=== PATIENT | male | born 1960 | race Caucasian/White ===

== ENCOUNTER 2022-04-10 19:23 | Emergency (ER) | payer OTHER, SELFPAY ==
[2022-04-10 21:29] VITALS: BP 142/78; PULSE 60; RESP 18; TEMP 35.7; O2SAT 97; BMI 39.0
--- NOTE | 2022-04-10 23:06 | ED_ITS ---
HPI - Extremity Problem General Chief complaint: Extremity Injury, Upper Stated complaint: right hand laceration work inj Time Seen by Provider: 04/10/22 22:45 Source: patient Mode of arrival: ambulatory Limitations: no limitations History of Present Illness HPI Narrative: Patient is a 62-year-old male who presents to the emergency department for evaluation of a laceration to the right hand. He will initially went to urgent care but was referred here as lacerations were too deep further repair. He states that today while at work he was loading something onto a truck and sustained a laceration from the load bar to the right index finger and right thumb. Initially was bleeding but bleeding became controlled. Denies numbness tingling or cold sensation to the fingers. Has full range of motion to the fing ers. Denies anticoagulants usage or coagulation disorders. Reports last tetanus vaccine being greater than 10 years ago. Related Data Previous Rx's Medication Instructions Recorded cephalexin 250 mg capsule 250 mg PO QID 7 days #28 caps 04/11/22 Allergies Allergy/AdvReac Type Severity Reaction Status Date / Time No Known Allergies Allergy Verified 04/10/22 22:59 Review of Systems Review of Systems: Skin: Lacerations to the right index finger and right thumb Yes all other systems are reviewed and are negative [facility] Past Medical History Attestation statement: The following information was validated with the patient. Source: old records reviewed Social History Social History Advance Directives: No Advance Directives Information Provided: No Physical Exam Vital Signs: Vital Signs: Last Vital Signs Temp 98 F 04/10/22 23:33 Pulse 55 04/10/22 23:33 Resp 18 04/10/22 23:33 BP 160/86 H 04/10/22 23:33 Pulse Ox 97 04/10/22 23:33 O2 Del Method 04/10/22 23:33 BMI result Body Mass Index 39.0 Appearance: Alert.?Oriented to person, place and time. No acute distress.?Normal affect. Eyes: Pupils equal, round and reactive to light.? ENT: Pharynx normal.?? Neck: Normal inspection.? Neck supple.?? CVS: Heart sounds normal. Normal heart rate and rhythm.? Pulses normal.?? Respiratory: No respiratory distress.? Lung sounds clear to auscultation bilaterally?? Abdomen: Soft and non-tender. Normoactive bowel sounds. Skin: Skin warm and dry.? Normal skin color.? 2 cm linear laceration to the lateral aspect of the 2nd digit just inferior to the MCP, involving care cutaneous tissue, bleeding controlled. 0.5 cm superficial laceration to the palmar aspect of the right thumb just distal to the DIP Extremities: No lower extremity edema.? Neuro: Moves all extremities spontaneously. Sensation intact bilaterally. CN II- XII intact. No focal neuro deficits. Ambulates with normal steady gait. Course Course Course Narrative: Patient is a 62-year-old male presents to the emergency department for evaluation of traumatic laceration sustained to the right hand while at work. He is _ hand dominant. Physical exam notable for 2 cm linear laceration to the lateral aspect of the 2nd digit just inferior to the MCP, involving care cutaneous tissue, bleeding controlled. 0.5 cm superficial laceration to the palmar aspect of the right thumb just distal to the DIP. Tetanus vaccine updated. Wounds cleansed with normal saline, digital block with lidocaine, sutured as noted in procedure section under aseptic technique, patient tolerated procedure well. Sutures will need to be removed in 8-10 days. Prescription for prophylactic antibiotic was sent to patient's pharmacy. Reviewed worsening signs and symptoms to return back to emergency department for. All questions were answered, patient discharged home in stable condition. MDM - Extremity (Nontraumatic) Medical Records Attestation: I reviewed the patient's medical records. Procedures Laceration Laceration 1: Site: hand (Second digit) Side (If applicable): right Size (cm): 2 Description: linear Depth: simple, single layer Local Anesthetic: lidocaine 1% Amount of anesthesia used (mL): 3 Pre-repair: wound explored and irrigated extensively Skin layer closed with: nylon Size (cm): 5-0 Number of sutures: 5 Technique: simple, interrupted Laceration 2: Site: hand (Thumb) Side (If applicable): right Size (cm): 0.5 Description: linear Depth: simple, single layer Local Anesthetic: lidocaine 1% Amount of anesthesia used (mL): 3 Pre-repair: wound explored and irrigated extensively Skin layer closed with: nylon Size (cm): 5-0 Number of sutures: 2 Technique: simple, interrupted Discharge Plan Discharge Clinical Impression: Finger laceration Patient Disposition: Home, Self-Care Instructions: Finger Laceration (ED) Additional Instructions: The sutures will need to be removed in 8-10 days you may return back to emergency department are speak with your primary care provider regarding having them removed. Avoid soaking the hand in water or submerging the hand Take antibiotics prescribed to prevent infection, topical bacitracin can be applied to the sutures. You should return for re-evaluation if you develop fevers, chills, increasing pain, redness, swelling, pus-like drainage, inability to move the fingers. Prescriptions: New cephalexin 250 mg capsule 250 mg PO QID 7 Days Qty: 28 0RF Referrals: Leonor Kirk MD [Primary Care Provider] - Stand Alone Forms: Work/School Release Interventions: ED Discharge Assessment Last Done: 04/11/22 00:49 Discharge Date/Time: 04/11/22 00:50
[2022-04-10] MEDS: Lidocaine HCl 1 % MPF 2 ML VIAL 6 ML SUBCUT (23:07)
[2022-04-10] MEDS: Diphth,Pertus(ACell),Tet Adult 0.5 ML SYRINGE IM (23:07)
[2022-04-10 23:33] VITALS: BP 160/86; PULSE 55; RESP 18; TEMP 36.6; O2SAT 97
== END 2022-04-11 00:50 | disposition home or self-care (01) ==
PROVIDERS: Emergency Provider Emergency Medicine Emergency Medical Services; PCP Internal Medicine
DX: S61.210A Laceration without foreign body of right index finger without damage to nail, initial encounter (principal); S61.011A Laceration without foreign body of right thumb without damage to nail, initial encounter; S60.511A Abrasion of right hand, initial encounter; W26.9XXA Contact with unspecified sharp object(s), initial encounter; Y93.9 Activity, unspecified; Y92.9 Unspecified place or not applicable; Y99.0 Civilian activity done for income or pay
CPT/HCPCS: 12042; 90471; 90715; 99284

== ENCOUNTER 2023-05-20 13:10 | Outpatient (AMB) | payer OTHER, SELFPAY ==
--- NOTE | 2023-05-20 13:30 | A.OFFVIS_ITS ---
Intake Vital Signs 05/20/23 13:32 Height 5 ft 10 in Weight 260 lb BMI 37.3 BP 108/70 Blood Pressure Location Rt brachial Position Sitting Respiration 16 Pulse 70 Pulse Source Pulse Oximeter Pulse Oximetry (%) 96 Oxygen Delivery Method Room Air Intake Visit Reasons: E-[employer]: Immunotherapy Related Neurotoxicity - LVM Intake Note: Pt presents to the office for new pt evaluation for immunotherapy related neurotoxicity. Recep Required: No Allergies No Known Allergies Allergy (Verified 05/20/23 13:31) Medication List - Last Reconciled 05/20/23 by Lauren Burton MD apixaban (Eliquis) 5 mg PO BID atorvastatin 40 mg PO DAILY cholecalciferol (vitamin D3) 10 mcg PO DAILY cyclobenzaprine 10 mg PO TID ferrous sulfate 300 mg PO BID gabapentin 300 mg PO TID lorazepam 0.5 mg PO DAILY PRN magnesium 200 mg PO DAILY metoprolol succinate ER 50 mg PO BID mirtazapine 15 mg PO BEDTIME multivitamin 1 tab PO DAILY omeprazole 20 mg PO BID ondansetron HCl 4 mg PO Q8H oxycodone 5 mg PO BID PRN sennosides (senna) 8.6 mg PO BID trazodone 50 mg PO DAILY HPI HPI Comments History of Present Illness Details 63Y/O MALE with esophageal cancer stage 4 comes for further management of immune mediated neuropathy. He was diagnsoed with esophageal cancer ( invasive adenocarcinoma) in Jun 2022 when he presented with dysphagia. He was treated with RT in his shoulder and spine, chemo - FOLFOX and nivolumab on 08/01 . 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 Paraneoplastic syndrome was ruled out He was treated with IVIG and high dose steroids and he improved . His course was also complicated by PE treated with eliquis and hematoma. He is still on chemo q 2 weeks . Now he has persistent numbness in his cisco feet, toes, has pain and sensitivity to touch in his feet,L>R he has weakness and walks with walker short distances.He has involuntary leg movements when he is sleeping and has frequent arousals. He has loud snoring and excessive daytime fatigue sleepiness. He reports headaches - right temporal pain. MRI with hayde showed no mets as per his . No nausea . He has photophobia ,phonophobia and has average 3-4 week.He takes tylenol and oxycodone .He feels better in 30 minutes.His headaches are mostly in the later part of the day. [facility] Medical History (Updated 05/20/23 @ 14:40 by Lauren Burton MD) Pulmonary embolism Esophageal carcinoma HTN (hypertension) Migraines, neuralgic Immune-mediated neuropathy Insomnia Snoring Surgical History Status post chemotherapy H/O umbilical hernia repair Family History Father No problems noted. Mother HTN (hypertension) Social History Household Members: Spouse Caregiver staying overnight: Yes Housing: Apartment Alcohol intake: never Patient Tobacco Use Status: Never used Tobacco Physical Exam Vital Signs: Last Vital Signs Pulse 70 05/20/23 13:32 Resp 16 05/20/23 13:32 BP 108/70 05/20/23 13:32 Pulse Ox 96 05/20/23 13:32 Oxygen Delivery Method Room Air 05/20/23 13:32 BMI result Body Mass Index 37.3 Const General: cooperative Nutritional Appearance: obese Orientation/consciousness: patient oriented x3 Neuro Other: Weakness of LE proximal 3/5 distal 4/5 Decreased sensation, light touch and pin prick in Left LE upto knee , right LE upto lower 1/3 leg General: patient oriented x3, tone normal, moves all extremities and Unable to assess gait Cranial nerves: Yes Facial sensation intact/muscles of mastication intact, Yes Bilaterally intact EOM present, Yes Nystagmus not present, Yes Normal facial strength present, Yes Midline tongue present and Yes Symmetric palate elevation present Cognition (Neuro): normal cognition Gait exam (Neuro): Unable to assess gait Deep tendon reflexes (DTR's): Right triceps reflex intensity grade: 1+, Left triceps reflex intensity grade: 1+, Rt Biceps (C5, C6): 1+, Left biceps reflex intensity grade: 1+, Right brachioradialis reflex intensity grade: 1+, Left brachioradialis reflex intensity grade: 1+, Right patellar reflex intensity grade: 0, Left patellar reflex intensity grade: 0, Right ankle reflex intensity grade: 0 and Left ankle reflex intensity grade: 0 Coordination: [id number] test normal Assessment & Plan Assessment & Plan (1) Immune-mediated neuropathy: Comment: ? CIDP Code(s): D89.89 - Other specified disorders involving the immune mechanism, not elsewhere classified; G63 - Polyneuropathy in diseases classified elsewhere (2) Insomnia: Code(s): G47.00 - Insomnia, unspecified (3) Snoring: Code(s): R06.83 - Snoring (4) Migraines, neuralgic: Code(s): G44.009 - Cluster headache syndrome, unspecified, not intractable Plan EMG NCS for assess the severity of neuropathy Home sleep test to r/o sleep apnea Increase gabapentin 600mg tid for neuropathic pain and migraines Orders: Orders RT home sleep study Today D89.89 - Other specified disorders involving the immune mechanism, not elsewhere classified, G47.00 - Insomnia, unspecified, G63 - Polyneuropathy in diseases classified elsewhere, R06.83 - Snoring NE electromyogram (EMG) Today D89.89 - Other specified disorders involving the immune mechanism, not elsewhere classified, G63 - Polyneuropathy in diseases classified elsewhere Medications: New cyclobenzaprine 10 mg PO BEDTIME gabapentin 600 mg PO TID 90 tabs 6RF Coding Level of Care Code New Pt Level 4 (91431) Diagnoses Immune-mediated neuropathy D89.89; G63 Insomnia G47.00 Snoring R06.83 Migraines, neuralgic G44.009
[2023-05-20 13:32] VITALS: BP 108/70; PULSE 70; RESP 16; O2SAT 96; BMI 37.3
== END 2023-05-20 14:22 | disposition home or self-care (01) ==
PROVIDERS: PCP Internal Medicine; Visit Provider Psychiatry & Neurology Neurology
DX: D89.89 Other specified disorders involving the immune mechanism, not elsewhere classified (principal); G63 Polyneuropathy in diseases classified elsewhere; G47.00 Insomnia, unspecified; R06.83 Snoring; G44.009 Cluster headache syndrome, unspecified, not intractable
CPT/HCPCS: 99204

== ENCOUNTER → 2023-05-20 13:10 | Outpatient (BNVA) | payer OTHER, SELFPAY | PROVIDERS: PCP Internal Medicine; Visit Provider Psychiatry & Neurology Neurology | DX: G44.009 Cluster headache syndrome, unspecified, not intractable (principal); G47.00 Insomnia, unspecified; D89.89 Other specified disorders involving the immune mechanism, not elsewhere classified; G63 Polyneuropathy in diseases classified elsewhere; R06.83 Snoring | CPT/HCPCS: 99202 ==

== ENCOUNTER → 2023-07-02 14:19 | Outpatient (REF) | payer OTHER, SELFPAY ==
--- NOTE | 2023-07-02 14:25 | EMG_ITS ---
Chief complaint: He was diagnsoed with esophageal cancer (invasive adenocarcinoma) in Jun 2022 when he presented with dysphagia. Subsequent staging imaging showed diffusely widespread disease with clavicular, mediastinal, abdominal adenopathy, as well as osseous metastasis. He was treated with RT in his shoulder and spine, chemo - FOLFOX and nivolumab on 08/01 . He developed acute bilateral lower extremity weakness 2 weeks after the initiation of chemo. 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 Paraneoplastic syndrome was ruled out. He was treated with IVIG and high dose steroids and he improved. His course was also complicated by PE treated with eliquis and hematoma. He is still on chemo q 2 weeks. He had an EMG August 2022, and was told to have severe neuropathy. I do not have the results today for comparison. Reason for referral: Evaluate for neuropathy Referred by: Dr. Burton Procedure done: Bilateral lower extremity NCS/EMG Precautions and/or limitations: On Eliquis-had to avoid needle EMG on deep muscles such as paraspinals The limb temperature was monitored continuously and remained between 32-36 degrees C during the performance of the NCS. Nerve Conduction Studies Anti Sensory Summary Table ?Stim Site NR Onset (ms) Norm Onset (ms) Peak (ms) Norm Peak (ms) O-P Amp (?V) Norm O-P Amp Site1 Site2 Delta-0 (ms) Dist (cm) Deng (m/s) Norm Deng (m/s) Left Sural Anti Sensory (Lat Mall) Calf NR <4.0 >5.0 Calf Lat Mall 14.0 Right Sural Anti Sensory (Lat Mall) Calf NR <4.0 >5.0 Calf Lat Mall 14.0 Motor Summary Table ?Stim Site NR Onset (ms) Norm Onset (ms) O-P Amp (mV) Norm O-P Amp iAmp (mV) Amp (1st) (%) Site1 Site2 Delta-0 (ms) Dist (cm) Deng (m/s) Norm Deng (m/s) Right Peroneal Motor (Ext Dig Brev) Ankle NR <4.0 >2.5 Ankle Ext Dig Brev 0.0 B Fib NR B Fib Ankle 0.0 >40 Poplt NR Poplt B Fib 0.0 >40 Left Tibial Motor (Abd [place]endleton Brev) Ankle NR <5 >2.5 Ankle Abd [place] Brev 0.0 Knee NR Knee Ankle 0.0 >40 Right Tibial Motor (Abd [place] Brev) Ankle NR <5 >2.5 Ankle Abd [place] Brev 0.0 Knee NR Knee Ankle 0.0 >40 EMG ?Side Muscle Nerve Root Ins Act Fibs Psw Amp Dur Poly Recrt Int Pat Comment Right AbdHallucis MedPlantar S1-2 Nml Nml Nml Nml Nml 0 Nml Complete Right AntTibialis Dp Br Peron L4-5 Incr 1+ 1+ Nml Nml 0 Nml Complete Right MedGastroc Tibial S1-2 Incr 1+ 1+ Nml Nml 0 Nml Complete Right VastusMed Femoral L2-4 Nml Nml Nml Nml Nml 0 Nml Complete Right Peroneus Long Sup Br Peron L5-S1 Incr 1+ 1+ Nml Nml 0 Nml Complete Right BicepsFemS Sciatic L5-S1 Nml Nml Nml Nml Nml 0 Nml Complete Left AbdHallucis MedPlantar S1-2 Nml Nml Nml Nml Nml 0 Nml Complete Left AntTibialis Dp Br Peron L4-5 Incr 1+ 1+ Nml Nml 0 Nml Complete Left MedGastroc Tibial S1-2 Nml Nml Nml Nml Nml 0 Nml Complete Left VastusMed Femoral L2-4 Nml Nml Nml Nml Nml 0 Nml Complete Left Peroneus Long Sup Br Peron L5-S1 Nml Nml Nml Nml Nml 0 Nml Complete FINDINGS: All motor and sensory nerves tested on lower extremities did not show any response. Concentric needle EMG was performed in selected muscles of the bilateral lower extremity. Study revealed Signs of electric abnormalities as shown in the table below. Right tibialis anterior, medial gastrocnemius and peroneus longus showed increased insertional activity, PSWs and fibrillations. Left tibialis anterior showed increased insertional activity, PSWs and fibrillations. IMPRESSION: 1. This is an abnormal study. 2. 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 3. Denervation seen on needle EMG of L5-S1 innervated muscles. Cannot rule out an L5-S1 radiculopathy. CLINICAL COMMENT: Comparison with previous EMG done at [facility] would be helpful. Thank you for your kind referral. Skylar Dodson MD, MORENO Board Certified, [place] [employer] and Rehabilitation (ABPMR) Board Certified, [place] [employer] Electro[employer]ostic [employer] (ABEM) CODIN [id number] x [address] [facility]
== END ==
LOC: HO.SL 14:19
PROVIDERS: PCP Internal Medicine; Visit Provider Psychiatry & Neurology Neurology
DX: G47.33 Obstructive sleep apnea (adult) (pediatric) (principal); G47.00 Insomnia, unspecified; R06.83 Snoring; G63 Polyneuropathy in diseases classified elsewhere; D89.89 Other specified disorders involving the immune mechanism, not elsewhere classified
CPT/HCPCS: 95806; 95886; 95909

== ENCOUNTER → 2023-07-02 14:25 | Outpatient (BNV) | payer OTHER, SELFPAY | PROVIDERS: PCP Internal Medicine; Visit Provider Physical Medicine & Rehabilitation | DX: G62.89 Other specified polyneuropathies (principal) | CPT/HCPCS: 95886; 95909 ==

== ENCOUNTER → 2023-07-02 15:13 | Outpatient (BNV) | payer OTHER, SELFPAY | PROVIDERS: PCP Internal Medicine; Visit Provider Psychiatry & Neurology Neurology | DX: G47.33 Obstructive sleep apnea (adult) (pediatric) (principal) | CPT/HCPCS: 95806 ==

== ENCOUNTER → 2023-08-01 19:30 | Outpatient (REF) | payer OTHER, SELFPAY | LOC: HO.SL 19:30 | PROVIDERS: PCP Internal Medicine; Visit Provider Nurse Practitioner Family | DX: G47.33 Obstructive sleep apnea (adult) (pediatric) (principal) | CPT/HCPCS: 95811 ==

== ENCOUNTER → 2023-08-01 21:41 | Outpatient (BNV) | payer OTHER, SELFPAY | PROVIDERS: PCP Internal Medicine; Visit Provider Psychiatry & Neurology Neurology | DX: G47.33 Obstructive sleep apnea (adult) (pediatric) (principal) | CPT/HCPCS: 95811 ==

== ENCOUNTER 2023-08-14 12:52 | Outpatient (AMB) | payer OTHER, SELFPAY ==
--- NOTE | 2023-08-14 12:56 | MHC.OFFVIS ---
Intake Vital Signs 08/14/23 12:57 Respiration 16 Pulse 70 Pulse Source Pulse Oximeter Pulse Oximetry (%) 96 Oxygen Delivery Method Room Air Intake Visit Reasons: 2 mo f/u -fImmunotherapy related Neurotixicity Intake Note: Pt presents for 3 month follow up for management of immune mediated neuropathy. [employer] Required: No Allergies No Known Allergies Allergy (Verified 08/14/23 12:57) Medication List - Last Reconciled 08/14/23 by Lauren Burton MD apixaban (Eliquis) 5 mg PO BID atorvastatin 40 mg PO DAILY cholecalciferol (vitamin D3) 10 mcg PO DAILY cyclobenzaprine 10 mg PO BEDTIME ferrous sulfate 300 mg PO BID gabapentin 600 mg PO TID lorazepam 0.5 mg PO DAILY PRN magnesium 200 mg PO DAILY metoprolol succinate ER 50 mg PO BID mirtazapine 15 mg PO BEDTIME multivitamin 1 tab PO DAILY omeprazole 20 mg PO BID ondansetron HCl 4 mg PO Q8H oxycodone 5 mg PO BID PRN sennosides (senna) 8.6 mg PO BID trazodone 50 mg PO DAILY HPI HPI Comments History of Present Illness Details 63Y/O MALE with esophageal cancer stage 4 comes for further management of immune mediated neuropathy. He was diagnsoed with esophageal cancer ( invasive adenocarcinoma) in Jun 2022 when he presented with dysphagia. He was treated with RT in his shoulder and spine, chemo - FOLFOX and nivolumab on 08/01 . 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 Paraneoplastic syndrome was ruled out He was treated with IVIG and high dose steroids and he improved . His course was also complicated by PE treated with eliquis and hematoma. He is still on chemo q 2 weeks . Now he has persistent numbness in his cisco feet, toes, has pain and sensitivity to touch in his feet,L>R he has weakness and walks with walker short distances.He has involuntary leg movements when he is sleeping and has frequent arousals. He has loud snoring and excessive daytime fatigue sleepiness. He reports headaches - right temporal pain. MRI with hayde showed no mets as per his . No nausea . He has photophobia ,phonophobia and has average 3-4 week.He takes tylenol and oxycodone .He feels better in 30 minutes.His headaches are mostly in the later part of the day. [facility] Medical History (Updated 08/14/23 @ 13:16 by Lauren Burton MD) Chronic migraine without aura Pulmonary embolism Esophageal carcinoma HTN (hypertension) Migraines, neuralgic Immune-mediated neuropathy Insomnia Snoring Surgical History Status post chemotherapy H/O umbilical hernia repair Family History Father No problems noted. Mother HTN (hypertension) Social History Household Members: Spouse Caregiver staying overnight: Yes Housing: Apartment Alcohol intake: never Patient Tobacco Use Status: Never used Tobacco Physical Exam Vital Signs: Last Vital Signs Pulse 70 08/14/23 12:57 Resp 16 08/14/23 12:57 Pulse Ox 96 08/14/23 12:57 Oxygen Delivery Method Room Air 08/14/23 12:57 Const General: cooperative Nutritional Appearance: obese Orientation/consciousness: patient oriented x3 Neuro Other: Weakness of LE proximal 3/5 distal 4/5 Decreased sensation, light touch and pin prick in Left LE upto knee , right LE upto lower 1/3 leg General: patient oriented x3, tone normal, moves all extremities and Unable to assess gait Cranial nerves: Yes Facial sensation intact/muscles of mastication intact, Yes Bilaterally intact EOM present, Yes Nystagmus not present, Yes Normal facial strength present, Yes Midline tongue present and Yes Symmetric palate elevation present Cognition (Neuro): normal cognition Gait exam (Neuro): Unable to assess gait Deep tendon reflexes (DTR's): Right triceps reflex intensity grade: 1+, Left triceps reflex intensity grade: 1+, Rt Biceps (C5, C6): 1+, Left biceps reflex intensity grade: 1+, Right brachioradialis reflex intensity grade: 1+, Left brachioradialis reflex intensity grade: 1+, Right patellar reflex intensity grade: 0, Left patellar reflex intensity grade: 0, Right ankle reflex intensity grade: 0 and Left ankle reflex intensity grade: 0 Coordination: [id number] test normal Assessment & Plan Assessment & Plan (1) Immune-mediated neuropathy: Comment: ? CIDP Code(s): D89.89 - Other specified disorders involving the immune mechanism, not elsewhere classified; G63 - Polyneuropathy in diseases classified elsewhere (2) TANI (obstructive sleep apnea): Comment: Severe degree of sleep apnea. The AHI was 45/hr and oxygen zoya was 75% Code(s): G47.33 - Obstructive sleep apnea (adult) (pediatric) (3) Chronic migraine without aura: Code(s): G43.709 - Chronic migraine without aura, not intractable, without status migrainosus Plan EMG NCS for assess the severity of neuropathy- axonal neuropathy Waiting for CPAP - 15 Continue gabapentin 600mg tid for neuropathic pain and migraines topiramate 50mg bid for migraines prophylaxis Medications: New topiramate 50 mg PO BID 60 tabs 0RF Coding Level of Care Code Est Pt Level 4 (77037) Diagnoses Immune-mediated neuropathy D89.89; G63 TANI (obstructive sleep apnea) G47.33 Chronic migraine without aura G43.709
[2023-08-14 12:57] VITALS: PULSE 70; RESP 16; O2SAT 96
== END 2023-08-14 13:21 | disposition home or self-care (01) ==
LOC: HO.HSMS 12:52
PROVIDERS: PCP Internal Medicine; Visit Provider Psychiatry & Neurology Neurology
DX: D89.89 Other specified disorders involving the immune mechanism, not elsewhere classified (principal); G63 Polyneuropathy in diseases classified elsewhere; G47.33 Obstructive sleep apnea (adult) (pediatric); G43.709 Chronic migraine without aura, not intractable, without status migrainosus
CPT/HCPCS: 99214

== ENCOUNTER → 2023-08-14 12:52 | Outpatient (BNVA) | payer OTHER, SELFPAY | PROVIDERS: PCP Internal Medicine; Visit Provider Psychiatry & Neurology Neurology | DX: G47.33 Obstructive sleep apnea (adult) (pediatric) (principal); G43.709 Chronic migraine without aura, not intractable, without status migrainosus; G63 Polyneuropathy in diseases classified elsewhere; D89.89 Other specified disorders involving the immune mechanism, not elsewhere classified | CPT/HCPCS: 99212 ==

== ENCOUNTER 2023-09-01 13:05 | Outpatient (AMB) | payer OTHER, SELFPAY ==
[2023-09-01 13:21] VITALS: BP 120/84; PULSE 76; TEMP 36.9; O2SAT 96; BMI 43.0
--- NOTE | 2023-09-01 13:21 | MHC.OFFWIV ---
Intake Vital Signs 09/01/23 13:21 Height 5 ft 10 in Weight 300 lb BMI 43.0 BP 120/84 Blood Pressure Location Lt brachial Position Sitting Pulse 76 Pulse Source Pulse Oximeter Temp 98.5 F Temp Source Oral Pulse Oximetry (%) 96 Oxygen Delivery Method Room Air Intake Visit Reasons: rash on head/forehead Intake Note: Pt presents to the office today for a rash on his head and forehead. The rash started about 2 days ago. Pt denies any new soaps or products used. Pt states he is currently getting leucovorin every 2 weeks and his last chemo was 08/20/23. He states he spoke with his oncologist who told him to go to urgent care because she wanted to check and make sure it wasnt shingles. Pt states the bumps are painful and a little blistery. Pt states he did have chicken pox as a child., ? Patient Tobacco Use Status: Never used Tobacco Allergies No Known Allergies Allergy (Verified 09/01/23 13:23) HPI HPI Comments History of Present Illness Details Patient presents to the walk-in today for sick visit Complaining of rash to right side of his head that started 2 days ago Patient is currently undergoing chemotherapy every 2 weeks, leucovorin, he is due for his next treatment tomorrow Spoke with his oncologist who recommended evaluation in the walk-in Patient states it started with some itching to that area then he developed the rash Rash is painful to the touch, denies drainage or crusting Denies patient vision changes, watering of the eye, redness in the eye, pain to the eye Denies fever, chest pain, shortness of breath, palpitations, dizziness, weakness, chills PFSH Medical History Chronic migraine without aura Pulmonary embolism Esophageal carcinoma HTN (hypertension) Migraines, neuralgic Immune-mediated neuropathy Insomnia Snoring Surgical History Status post chemotherapy H/O umbilical hernia repair Family History Father No problems noted. Mother HTN (hypertension) Social History Household Members: Spouse Caregiver staying overnight: Yes Housing: Apartment Alcohol intake: never Patient Tobacco Use Status: Never used Tobacco Review of Systems Const All systems reviewed & are unremarkable except as noted in HPI and below Physical Exam Vital Signs: Last Vital Signs Temp 98.5 F 09/01/23 13:21 Pulse 76 09/01/23 13:21 BP 120/84 09/01/23 13:21 Pulse Ox 96 09/01/23 13:21 Oxygen Delivery Method Room Air 09/01/23 13:21 BMI result Body Mass Index 43.0 General: awake, alert, oriented. Answers questions appropriately. Fully engaged in examination. Skin: small vesicular rash noted to right frontal/parietal scalp. no weeping, crusting or drainage noted. Tender to palpation. HEENT: Normocephalic. Hearing intact. PERRL. No héctor-orbital lesions noted. Cardiac: External chest normal in appearance. Respiratory: No cough, audible wheezing or stridor. Abdomen: without gross distension. MS: No obvious swelling or deformities. Neurological: Oriented to person, place, time and situation. Thought process intact. Patient using motorized wheelchair Psychiatric: Appropriate mood and affect. Good judgment and insight. Assessment & Plan Assessment & Plan (1) Shingles: Code(s): B02.9 - Zoster without complications Plan valacyclovir a 1000 mg p.o. t.i.d. x7 days Avoid contact with women and other immunocompromised persons Call and speak to oncologist before next scheduled chemo treatment Patient and advised of red flag symptoms including monitoring for spreading to the eye and symptoms that would warrant emergency room visit. All questions and concerns were answered, patient agrees with the plan Follow up with primary care doctor or return to walk-in clinic for a new, worsening or concerning symptoms. Medications: New valacyclovir 1,000 mg PO Q8H 10 days 30 tabs 0RF Coding Level of Care Code Est Pt Level 3 (22168) Diagnoses Shingles B02.9
== END 2023-09-01 14:56 | disposition home or self-care (01) ==
PROVIDERS: PCP Internal Medicine; Visit Provider Registered Nurse Emergency
DX: B02.9 Zoster without complications (principal)
CPT/HCPCS: 99213

== ENCOUNTER → 2023-11-13 07:57 | Outpatient (BNVA) | payer OTHER, SELFPAY | PROVIDERS: PCP Internal Medicine; Visit Provider Psychiatry & Neurology Neurology | DX: G43.709 Chronic migraine without aura, not intractable, without status migrainosus (principal); G47.33 Obstructive sleep apnea (adult) (pediatric); G63 Polyneuropathy in diseases classified elsewhere; D89.89 Other specified disorders involving the immune mechanism, not elsewhere classified | CPT/HCPCS: 99212 ==

== ENCOUNTER 2023-12-22 16:06 | Outpatient (REF) | payer OTHER, SELFPAY | END 2023-12-22 16:07 | disposition home or self-care (01) | LOC: HO.MRI 16:06 | PROVIDERS: PCP Internal Medicine; Visit Provider Psychiatry & Neurology Neurology | DX: Z13.89 Encounter for screening for other disorder (principal) ==

== ENCOUNTER 2024-04-23 10:19 | Outpatient (REF) | payer OTHER, SELFPAY ==
[2024-04-23 13:17] LABS: Appearance Urine Clear; Color Urine Yellow; Glucose Urine UA Negative (Negative); Leukocyte Esterase Urine Large (3+) (Negative); Nitrite Urine Negative (Negative); UMIC TRIGGER UACC YES; Urine Blood Small (1+) (Negative); Urine Ketones Negative (Negative); Urine Protein Negative (Neg-Trace)
[2024-04-23 13:28] LABS: Bacteria Urine None Seen (None Seen); Hyaline Casts Urine 0-2 /LPF (0-2); RBC Urine 0-2 /HPF (0-2); Squamous Epithelial Cell Urine 0-2 /HPF (0-2); UACC Culture Trigger YES; WBC Urine >50 /HPF (0-5)
== END 2024-04-23 10:20 | disposition home or self-care (01) ==
LOC: HO.LNP 10:19
PROVIDERS: PCP Internal Medicine; Visit Provider Nurse Practitioner Family
DX: R39.15 Urgency of urination (principal)
CPT/HCPCS: 81001; 81003; 87086; 99212

== ENCOUNTER 2024-04-23 10:19 | Outpatient (AMB) | payer OTHER, SELFPAY ==
[2024-04-23 10:26] VITALS: BP 120/82; PULSE 83; TEMP 36.7; O2SAT 98
--- NOTE | 2024-04-23 10:26 | AM.OFFWIN_ITS ---
Intake Vital Signs 04/23/24 10:26 Height 5 ft 10 in BP 120/82 Blood Pressure Location Rt brachial Position Sitting Pulse 83 Pulse Source Pulse Oximeter Temp 98.1 F Temp Source Oral Pulse Oximetry (%) 98 Intake Visit Reasons: EP-UTI Intake Note: pt is here for UTI, patient states burning when voiding, urine more concentrated, unable to void or unable to hold urine, ongoing for 3 days and denies abd pain Patient Tobacco Use Status: Never used Tobacco Allergies No Known Allergies Allergy (Verified 04/23/24 10:26) Do you need a note to return to daycare/school/sports/work: No HPI HPI Comments History of Present Illness Details 64 y/o male patient who presents to the walk in clinic with c/o urinary symptoms x 3 days. C/o urinary frequency, urgency and dsyuria. He has also noticed Urinary incontinence. [facility] Medical History (Updated 11/13/23 @ 08:31 by Lauren Burton MD) Status post chemotherapy Back pain Radiculopathy Chronic migraine without aura Pulmonary embolism Esophageal carcinoma HTN (hypertension) Migraines, neuralgic Immune-mediated neuropathy Insomnia Snoring Surgical History H/O umbilical hernia repair Family History Father No problems noted. Mother HTN (hypertension) Social History Household Members: Spouse Caregiver staying overnight: Yes Housing: Apartment Alcohol intake: never Patient Tobacco Use Status: Never used Tobacco Review of Systems Const All systems reviewed & are unremarkable except as noted in HPI and below Physical Exam Vital Signs: Last Vital Signs Temp 98.1 F 04/23/24 10:26 Pulse 83 04/23/24 10:26 BP 120/82 04/23/24 10:26 Pulse Ox 98 04/23/24 10:26 Const General: cooperative and no acute distress Nutritional Appearance: obese Orientation/consciousness: patient oriented x3 Limitations: wheelchair General: Yes no CVA tenderness Back/Spine/Pelvis Back: no CVA tenderness Neuro General: patient oriented x3 Assessment & Plan Assessment & Plan (1) Urinary urgency: Code(s): R39.15 - Urgency of urination Plan: Ordered C&S. Ordered Macrobid today. Advised Pt pending on the Culture, I might change Abx. Will call Patient. Orders: Orders UA CC w/rflx Micro + Cult Today R39.15 - Urgency of urination Medications: New nitrofurantoin monohyd/m-cryst 100 mg (Macrobid) must administer with a meal/food 100 mg PO Q12H 7 days 14 caps 0RF R39.15 - Urgency of urination Coding Level of Care Code Est Pt Level 3 (94280) Diagnoses Urinary urgency R39.15 Time Spent (min) 15
== END 2024-04-23 10:58 | disposition home or self-care (01) ==
PROVIDERS: PCP Internal Medicine; Visit Provider Nurse Practitioner Family
DX: Z13.9 Encounter for screening, unspecified (principal); R39.15 Urgency of urination

== ENCOUNTER 2024-05-24 13:50 | Outpatient (REF) | payer OTHER, SELFPAY | END 2024-05-24 13:51 | disposition home or self-care (01) | LOC: HO.LAB 13:50 | PROVIDERS: PCP Internal Medicine; Visit Provider Psychiatry & Neurology Neurology | DX: M54.9 Dorsalgia, unspecified (principal); N30.01 Acute cystitis with hematuria; D89.89 Other specified disorders involving the immune mechanism, not elsewhere classified; G63 Polyneuropathy in diseases classified elsewhere; G47.33 Obstructive sleep apnea (adult) (pediatric); G43.709 Chronic migraine without aura, not intractable, without status migrainosus; G25.81 Restless legs syndrome; M48.061 Spinal stenosis, lumbar region without neurogenic claudication | CPT/HCPCS: 81003; 87086; 87088; 87186; 99202; 99212 ==

== ENCOUNTER 2024-05-24 13:50 | Outpatient (AMB) | payer OTHER, SELFPAY ==
--- NOTE | 2024-05-24 13:58 | MHC.OFFVIS ---
Vital Signs 05/24/24 13:59 Height 5 ft 10 in Weight 324 lb BMI 46.5 BP 106/62 Blood Pressure Location Lt brachial Position Sitting Pulse 74 Pulse Source Pulse Oximeter Pulse Oximetry (%) 95 Oxygen Delivery Method Room Air Intake Visit Reasons: Follow up Tile Decorator Required: No Accompanied by: Spouse Allergies No Known Allergies Allergy (Verified 05/24/24 15:21) Do you need a note to return to daycare/school/sports/work: No HPI Comments Details: 64Y/O MALE with esophageal cancer stage 4 comes for follow up of immune mediated neuropathy, sleep apnea and migraines He started CPAP and is doing well. He is sleeping better and his daytime sleepiness has improved Compliance data-95% Usage hrs 8 hrs AHI 1.9 Pressure 15 his leg weakness has improved and he is able to walk around the house. His MRI was c/w spinal stenosis . . His migraines resolved with topiramate . 1-2 migraines a month. EMG showed - 2. 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 3. Denervation seen on needle EMG of L5-S1 innervated muscles. Cannot rule out an L5-S1 radiculopathy. History from initial visit-He was diagnsoed with esophageal cancer ( invasive adenocarcinoma) in Jun 2022 when he presented with dysphagia. He was treated with RT in his shoulder and spine, chemo - FOLFOX and nivolumab on 08/01 . 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 Paraneoplastic syndrome was ruled out He was treated with IVIG and high dose steroids and he improved . His course was also complicated by PE treated with eliquis and hematoma. He is still on chemo q 2 weeks . Now he has persistent numbness in his cisco feet, toes, has pain and sensitivity to touch in his feet,L>R PFSH Medical History (Updated 05/24/24 @ 15:33 by Yamilka Barr PA-C) Restless legs syndrome (RLS) Obesity Spinal stenosis of lumbar region Status post chemotherapy Back pain Radiculopathy Chronic migraine without aura Pulmonary embolism Esophageal carcinoma HTN (hypertension) Migraines, neuralgic Immune-mediated neuropathy Insomnia Snoring Surgical History H/O umbilical hernia repair Family History Father No problems noted. Mother HTN (hypertension) Social History Household Members: Spouse Caregiver staying overnight: Yes Housing: Apartment Alcohol intake: never Patient Tobacco Use Status: Never used Tobacco Physical Exam Vital Signs: Last Vital Signs Pulse 74 05/24/24 13:59 BP 106/62 05/24/24 13:59 Pulse Ox 95 05/24/24 13:59 Oxygen Delivery Method Room Air 05/24/24 13:59 BMI result Body Mass Index 46.5 Const General: cooperative Nutritional Appearance: obese Orientation/consciousness: patient oriented x3 Neuro Other: Weakness of LE proximal 5-/5 distal 5/5 Decreased sensation, light touch and pin prick in distal toes and feet Gait- able to walk without cane , midl wide based , good. General: patient oriented x3, tone normal and moves all extremities Cranial nerves: Yes Facial sensation intact/muscles of mastication intact, Yes Bilaterally intact EOM present, Yes Nystagmus not present, Yes Normal facial strength present, Yes Midline tongue present and Yes Symmetric palate elevation present Cognition (Neuro): normal cognition Deep tendon reflexes (DTR's): Right triceps reflex intensity grade: 1+, Left triceps reflex intensity grade: 1+, Rt Biceps (C5, C6): 1+, Left biceps reflex intensity grade: 1+, Right brachioradialis reflex intensity grade: 1+, Left brachioradialis reflex intensity grade: 1+, Right patellar reflex intensity grade: 0, Left patellar reflex intensity grade: 0, Right ankle reflex intensity grade: 0 and Left ankle reflex intensity grade: 0 Coordination: [id number] test normal Results AMB Urinalysis, Automated UA Leukoctes 500 Charlie/uL Last Edit by Madison Dent CMA on 05/24/24 15:26 UA Nitrite Positive Last Edit by Madison Dent CMA on 05/24/24 15:26 UA Urobilinogen 8 mg/dL Last Edit by Madison Dent CMA on 05/24/24 15:26 UA Protein 15 mg/dL Last Edit by Madison Dent CMA on 05/24/24 15:26 UA pH 5.5 Last Edit by Madison Dent CMA on 05/24/24 15:26 UA Blood 80 [place]ak[place]/uL Last Edit by Madison Dent, DAMIÁN on 05/24/24 15:26 UA Specific [place] 1.010 Last Edit by Madison Dent, DAMIÁN on 05/24/24 15:26 UA Ketone Positive Last Edit by Madison Dent, DAMIÁN on 05/24/24 15:26 UA Bilirubin 4 mg/dL Last Edit by Madison Dent, DAMIÁN on 05/24/24 15:26 UA Glucose 250 mg/dL Last Edit by Madison Dent, DAMIÁN on 05/24/24 15:26 Assessment & Plan Assessment & Plan (1) Immune-mediated neuropathy: Comment: ? CIDP - significant improvement with course of IVIG Code(s): D89.89 - Other specified disorders involving the immune mechanism, not elsewhere classified; G63 - Polyneuropathy in diseases classified elsewhere Category: Medical (2) TANI (obstructive sleep apnea): Comment: Severe degree of sleep apnea. The AHI was 45/hr and oxygen zoya was 75% Code(s): G47.33 - Obstructive sleep apnea (adult) (pediatric) Category: Medical (3) Chronic migraine without aura: Code(s): G43.709 - Chronic migraine without aura, not intractable, without status migrainosus Category: Medical Qualifiers: Intractability: not intractable Status migrainosus presence: without status migrainosus Qualified Code(s): G43.709 - Chronic migraine without aura, not intractable, without status migrainosus (4) Restless legs syndrome (RLS): Code(s): G25.81 - Restless legs syndrome Category: Medical (5) Spinal stenosis of lumbar region: Code(s): M48.061 - Spinal stenosis, lumbar region without neurogenic claudication Category: Medical Plan EMG NCS reviewed. MRI L spine shows spinal stenosis continue CPAP - 15 . compliance stressed Continue gabapentin 600mg tid for neuropathic pain and migraines topiramate 50mg bid for migraines prophylaxis Continue exercises . Refer to medical management Pain management Orders: Referrals Pain Management Referral M48.061 - Spinal stenosis, lumbar region without neurogenic claudication, M54.10 - Radiculopathy, site unspecified, M54.9 - Dorsalgia, unspecified Medical Weight Management Referral E66.9 - Obesity, unspecified Coding Level of Care Code Est Pt Level 4 (13943) Complex EM visit Add On G2211 Diagnoses Immune-mediated neuropathy D89.89; G63 TANI (obstructive sleep apnea) G47.33 Chronic migraine without aura without status migrainosus, not intractable G43.709 Intractability: not intractable Status migrainosus presence: without status migrainosus Restless legs syndrome (RLS) G25.81 Spinal stenosis of lumbar region M48.061
[2024-05-24 13:59] VITALS: BP 106/62; PULSE 74; O2SAT 95; BMI 46.5
== END 2024-05-24 14:30 | disposition home or self-care (01) ==
PROVIDERS: PCP Internal Medicine; Visit Provider Psychiatry & Neurology Neurology
DX: D89.89 Other specified disorders involving the immune mechanism, not elsewhere classified (principal); G63 Polyneuropathy in diseases classified elsewhere; G47.33 Obstructive sleep apnea (adult) (pediatric); G43.709 Chronic migraine without aura, not intractable, without status migrainosus; G25.81 Restless legs syndrome; M48.061 Spinal stenosis, lumbar region without neurogenic claudication
CPT/HCPCS: 99214; G2211

== ENCOUNTER 2024-05-24 15:06 | Outpatient (AMB) | payer OTHER, SELFPAY ==
[2024-05-24 15:19] VITALS: BP 120/82; PULSE 60; TEMP 36.3; O2SAT 97; BMI 46.5
--- NOTE | 2024-05-24 15:19 | AM.OFFWIN_ITS ---
Intake Vital Signs 05/24/24 15:19 Height 5 ft 10 in Weight 324 lb BMI 46.5 BP 120/82 Blood Pressure Location Lt brachial Position Sitting Pulse 60 Pulse Source Pulse Oximeter Temp 97.4 F Temp Source Temporal Artery Scan Pulse Oximetry (%) 97 Oxygen Delivery Method Room Air Intake Visit Reasons: EP-?uti Intake Note: Pt presents to the office today for c/o a possible UTI. Pt states he has burning and frequency x2 days. Pt is taking OTC URIcalm. Pt states he took 3 doses total. Patient Tobacco Use Status: Never used Tobacco Allergies No Known Allergies Allergy (Verified 05/24/24 15:21) HPI HPI Comments History of Present Illness Details History of Present Illness The patient is a 64-year-old male presenting with symptoms suggestive of a urinary tract infection. The symptoms began recently, approximately two days ago, characterized by dysuria and increased urinary frequency. The patient reports a burning sensation during urination and an urgent need to urinate frequently. There is also a sensation of incomplete bladder emptying. The patient experienced a similar episode one month ago and was treated with antibiotics, specifically, macrobid, which ameliorated his symptoms significantly after two days of treatment. At that time, urine culture results showed no bacterial growth, but the patient reported marked improvement with medication. Currently, the patient has been using an [id number] product, pyridium, for three doses. Physical Exam General: Cooperative, healthy appearing, comfortable, no acute distress and well developed Orientation: Patient oriented x3 Limitations: wheelchair use Head: Normal to inspection Ears: Hearing grossly normal bilaterally Nose: Normal external nose present Face and sinus: Normal facial exam Eyes: Appearance normal, both eyes and all related structures Neck: Normal visual inspection and Yes full ROM Respiratory: Normal respiratory effort and able to speak in complete sentences Skin: No rashes or lesions noted Neuro: Patient oriented x3 Extremities: Normal to inspection [facility] Medical History (Updated 05/24/24 @ 15:33 by Yamilka Barr PA-C) Restless legs syndrome (RLS) Obesity Spinal stenosis of lumbar region Status post chemotherapy Back pain Radiculopathy Chronic migraine without aura Pulmonary embolism Esophageal carcinoma HTN (hypertension) Migraines, neuralgic Immune-mediated neuropathy Insomnia Snoring Surgical History H/O umbilical hernia repair Family History Father No problems noted. Mother HTN (hypertension) Social History Household Members: Spouse Caregiver staying overnight: Yes Housing: Apartment Alcohol intake: never Patient Tobacco Use Status: Never used Tobacco Review of Systems Const All systems reviewed & are unremarkable except as noted in HPI and below Physical Exam Vital Signs: Last Vital Signs Temp 97.4 F 05/24/24 15:19 Pulse 60 05/24/24 15:19 BP 120/82 05/24/24 15:19 Pulse Ox 97 05/24/24 15:19 Oxygen Delivery Method Room Air 05/24/24 15:19 BMI result Body Mass Index 46.5 Results AMB Urinalysis, Automated UA Leukoctes 500 Charlie/uL Last Edit by Madison Dent CMA on 05/24/24 15:26 UA Nitrite Positive Last Edit by Madison Dent CMA on 05/24/24 15:26 UA Urobilinogen 8 mg/dL Last Edit by Madison Dent CMA on 05/24/24 15:26 UA Protein 15 mg/dL Last Edit by Madison Dent CMA on 05/24/24 15:26 UA pH 5.5 Last Edit by Madison Dent CMA on 05/24/24 15:26 UA Blood 80 Flakito/uL Last Edit by Madison Dent CMA on 05/24/24 15:26 UA Specific [place] 1.010 Last Edit by Madison Dent CMA on 05/24/24 15:26 UA Ketone Positive Last Edit by Madison Dent CMA on 05/24/24 15:26 UA Bilirubin 4 mg/dL Last Edit by Madison Dent CMA on 05/24/24 15:26 UA Glucose 250 mg/dL Last Edit by Madison Dent CMA on 05/24/24 15:26 Results Reviewed Results Reviewed: Laboratory Last Values Urine pH (Auto) 5.5 05/24/24 15:25 Specific [place] (Auto) 1.010 05/24/24 15:25 Urine Protein (Auto) 15 mg/dL 05/24/24 15:25 Glucose (UA)(Auto) 250 mg/dL 05/24/24 15:25 Urine Ketones (Auto) Positive 05/24/24 15:25 Urine Blood (Auto) 80 [place]/uL 05/24/24 15:25 Urine Nitrite (Auto) Positive 05/24/24 15:25 Urine Bilirubin (Auto) 4 mg/dL 05/24/24 15:25 Urine Urobilinogen (Auto) 8 mg/dL 05/24/24 15:25 Leukocyte Esterase (Auto) 500 Charlie/uL 05/24/24 15:25 Assessment & Plan Assessment & Plan (1) UTI (urinary tract infection): Code(s): N39.0 - Urinary tract infection, site not specified Qualifiers: Urinary tract infection type: acute cystitis Hematuria presence: with hematuria Qualified Code(s): N30.01 - Acute cystitis with hematuria Plan: Plan - UA invalid after pt taking pyridium - sending urine cx as complicated (male). - Start cefuroxime BID for five days for treatment of urinary tract infection. If urine culture results indicate resistance, the therapy will be adjusted accordingly. - Discontinue omeprazole temporarily while on cefuroxime, recommending the use of alternative antacids like TUMS if needed. - The patient has an upcoming appointment with a urologist to evaluate his prostate. - Monitor symptom resolution during treatment course, and follow up with his PCP if symptoms persist or worsen. Patient was informed and verbally consented to the use of an ambient scribe for clinic note documentation during this visit. Orders: Orders Urine Culture Today Yamilka Barr PA-C N39.0 - Urinary tract infection, site not specified AMB Urinalysis Automated Today Roxanna Houston NP Z13.9 - Encounter for screening, unspecified Medications: New cefuroxime axetil 500 mg PO Q12H 10 tabs 0RF Yamilka Barr PA-C Coding Level of Care Code New Pt Level 3 (62600) Diagnoses Acute cystitis with hematuria N30.01 Urinary tract infection type: acute cystitis Hematuria presence: with hematuria
== END 2024-05-24 15:47 | disposition home or self-care (01) ==
PROVIDERS: PCP Internal Medicine; Visit Provider Physician Assistant
DX: Z13.9 Encounter for screening, unspecified (principal); N30.01 Acute cystitis with hematuria

== ENCOUNTER 2024-06-07 12:47 | Outpatient (AMB) | payer OTHER, SELFPAY ==
--- NOTE | 2024-06-07 12:51 | A.OFFVIS_ITS ---
Vital Signs 06/07/24 12:55 Height 5 ft 10 in Weight 321 lb BMI 46.1 BP 155/79 H Blood Pressure Location Lt brachial Position Sitting Pulse 80 Pulse Source Pulse Oximeter Pulse Oximetry (%) 97 Oxygen Delivery Method Room Air Intake Visit Reasons: Radiculopathy Site Unspecified Intake Note: Pain today 03/18 Surveillance Sensor Operator Required: No Accompanied by: Spouse Allergies No Known Allergies Allergy (Verified 06/07/24 12:55) HPI HPI Radiculopathy Site Unspecified: Details: Patient is a very pleasant 64 years old male with medical active history of esophageal cancer stage 4 (invasive adenocarcinoma, diagnosed early 2022, follows Dr. Walsh at [facility]), immune mediated neuropathy, PE due to chemo (07/2023, on Eliquis), h/o shingles (08/2023) s/p chemotherapy, sleep apnea/CPAP, morbid obesity and migraines, presents today for initial evaluation of chronic low back pain related to lumbar spinal stenosis. He arrives today via motorized scooter and is accompanied by his . Patient reports he lost ability to full walking capacity after first treatment of immunotherapy in 2022 due to a rare reaction and had to undergo extensive hospitalization, rehabilitation and physical therapy. Back pain is axial, discogenic and radicular in nature with movements, walking and lumbar ROM. He is able to walk for less than 5 minutes and uses cane with short distances. Walking, standing, ADLs, bending forward reproduces moderate to severe pain while sitting relieves his pain. Reports increased pain in anterior thigh and slighly in groin with spasming with SLR testing, left leg worse than right and associated numbness and tingling in both feet. Lumbar spine MRI showed multilevel central and foraminal stenosis most notable at L3-L4. Denies previous spine surgery or injections. Denies any fever or chills, abdominal pain, bladder or bowel dysfunction or saddle anesthesia. Reports bilateral lower extremity weakness. Oswestry low back disability score=25 (severe disability) Location: Lower back pain with radiation into both legs anteriorly Duration: 5 years , worsening for past one year Characteristics of symptom or complaint: Throbbing, burning, shooting, radiating, numbness, tingling, stabbing Aggravating or associated factors: Standing, walking, movements, personal care, ADLs Relieving factors: Rest, sitting, Tylenol, cyclobenzaprine, gabapentin, heat Treatment: Neurology eval, lumbar spine MRI [facility] Medical History (Updated 06/07/24 @ 18:10 by HARLAN Vasquez) Port-A-Cath in place Restless legs syndrome (RLS) Obesity Spinal stenosis of lumbar region Status post chemotherapy Back pain Radiculopathy Chronic migraine without aura Pulmonary embolism Esophageal carcinoma HTN (hypertension) Migraines, neuralgic Immune-mediated neuropathy Insomnia Snoring Surgical History H/O umbilical hernia repair Family History Father No problems noted. Mother HTN (hypertension) Social History Household Members: Spouse Caregiver staying overnight: Yes Housing: Apartment Alcohol intake: never Patient Tobacco Use Status: Never used Tobacco Review of Systems Const All systems reviewed & are unremarkable except as noted in HPI and below Physical Exam Vital Signs: Last Vital Signs Pulse 80 06/07/24 12:55 BP 155/79 H 06/07/24 12:55 Pulse Ox 97 06/07/24 12:55 Oxygen Delivery Method Room Air 06/07/24 12:55 BMI result Body Mass Index 46.1 General: Appears afebrile. Alert and oriented. Mood and affect appropriate. Follows and participates in conversation appropriately. Respiratory effort is unlabored. Able to transition from sit to stand with assistance. Arrived via motorized W/C. Able to ambulate short steps with assistance and cane. Unable to perform lumbar ROM due to pain. SLR test positive bilaterally, left>right. Port a cath is noted right chest, not accessed. Area non tender, no swelling or redness. Results Reviewed Results Reviewed: MR SPINE LUMBAR without CONTRAST 01/12/24 at [facility] INDICATION: Chronic low back pain x a few years. Unspecified radiculopathy. TECHNIQUE: Unenhanced multiplanar, multisequence MR imaging of the lumbar spine. COMPARISON: None available. FINDINGS: Normal alignment of lumbar vertebral bodies. The vertebral bodies are of normal height. Endplate Modic type II changes L3-L4 and L4-L5. Moderate loss of intervertebral disc space height and marginal osteophyte formation at these levels. Remaining intervertebral disc spaces are maintained. Lumbar facet arthrosis. Conus and cauda equina of normal appearance. Conus tip T12-L1. Examination through the L1-L2 intervertebral level revealing facet arthrosis. Prominence of ligamentum flavum. No significant central stenosis or foraminal narrowing. Examination through the L2-L3 intervertebral level revealing facet arthrosis. Prominence of ligamentum flavum. Small posterior disc osteophyte. Mild central stenosis. No RIGHT foraminal narrowing. Mild LEFT foraminal narrowing. Examination through the L3-L4 intervertebral level revealing facet arthrosis. Prominence of ligamentum flavum. Posterior disc osteophyte. Moderate to severe central stenosis. Bilateral lateral recess encroachment. No significant LEFT foraminal narrowing. Mild RIGHT foraminal narrowing. Examination through the L4-L5 intervertebral level revealing facet arthrosis. Posterior disc osteophyte. Mild central stenosis. RIGHT lateral recess encroachment. Mild to moderate RIGHT foraminal narrowing. No significant LEFT foraminal narrowing. Examination through the L5-S1 intervertebral level revealing facet arthrosis. No significant central stenosis or foraminal narrowing. IMPRESSION: Spondylotic changes and facet arthrosis. No findings of fracture or listhesis. Varying degrees of central stenosis and foraminal narrowing as above. No acute disc protrusion identified. No findings suggestive of an acute process. L2-L3 Mild central stenosis. No RIGHT foraminal narrowing. Mild LEFT foraminal narrowing. L3-L4 Moderate to severe central stenosis. Bilateral lateral recess encroachment. No significant LEFT foraminal narrowing. Mild RIGHT foraminal narrowing. L4-L5 Mild central stenosis. RIGHT lateral recess encroachment. Mild to moderate RIGHT foraminal narrowing. EMG/NVC study at [facility] 07/02/23 FINDINGS: All motor and sensory nerves tested on lower extremities did not show any response. Concentric needle EMG was performed in selected muscles of the bilateral lower extremity. Study revealed Signs of electric abnormalities as shown in the table below. Right tibialis anterior, medial gastrocnemius and peroneus longus showed increased insertional activity, PSWs and fibrillations. Left tibialis anterior showed increased insertional activity, PSWs and fibrillations. IMPRESSION: 1. This is an abnormal study. 2. 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 3. Denervation seen on needle EMG of L5-S1 innervated muscles. Cannot rule out an L5-S1 radiculopathy. Assessment & Plan Assessment & Plan (1) Spinal stenosis of lumbar region: Code(s): M48.061 - Spinal stenosis, lumbar region without neurogenic claudication Category: Medical (2) Back pain: Code(s): M54.9 - Dorsalgia, unspecified Category: Medical (3) Chronic pain syndrome: Code(s): G89.4 - Chronic pain syndrome Category: Medical (4) Lumbar radiculopathy: Code(s): M54.16 - Radiculopathy, lumbar region Category: Medical Plan Discussed interventional treatments for spinal stenosis related pain with bilateral radiculopathy with patient and his . Lumbar spine MRI imaging report discussed with patient and family. Schedule L3-L4 Interlaminar ESPERANZA with local and fluoroscopy. Expectations, risks and benefits were reviewed. Patient is aware he will be contacted to schedule this procedure. Patient takes Eliquis, instructions given on when to pause with prescribing physician permission. Patient is aware of hyperglycemic effects of steroids. All questions were answered and the patient is in agreement of plan. Follow-up after injection and sooner as needed. Coding Level of Care Code New Pt Level 4 (39280) Complex EM visit Add On G2211 Diagnoses Spinal stenosis of lumbar region M48.061 Back pain M54.9 Chronic pain syndrome G89.4 Lumbar radiculopathy M54.16
[2024-06-07 12:55] VITALS: BP 155/79; PULSE 80; O2SAT 97; BMI 46.1
== END 2024-06-07 13:35 | disposition home or self-care (01) ==
PROVIDERS: PCP Internal Medicine; Referring Provider Psychiatry & Neurology Neurology; Visit Provider Nurse Practitioner Family
DX: M48.061 Spinal stenosis, lumbar region without neurogenic claudication (principal); M54.9 Dorsalgia, unspecified; G89.4 Chronic pain syndrome; M54.16 Radiculopathy, lumbar region
CPT/HCPCS: 99204; G2211

== ENCOUNTER → 2024-06-07 12:47 | Outpatient (BNVA) | payer OTHER, SELFPAY | PROVIDERS: PCP Internal Medicine; Referring Provider Psychiatry & Neurology Neurology; Visit Provider Nurse Practitioner Family | DX: M48.061 Spinal stenosis, lumbar region without neurogenic claudication (principal); M54.16 Radiculopathy, lumbar region; G89.4 Chronic pain syndrome | CPT/HCPCS: 99202 ==

== ENCOUNTER 2024-08-10 06:36 | Outpatient (REF) | payer OTHER, SELFPAY ==
--- NOTE | ~2024-08-10 | FL_ITS ---
EXAMINATION: FLUOROSCOPY GUIDANCE FOR NEEDLE PLACEMENT CLINICAL INFORMATION: M48.061 - Spinal stenosis, lumbar region without neurogenic claudication COMPARISON: None available. TECHNIQUE: Fluoroscopy guidance was provided in OR for referring physician. No radiologist was present. FINDINGS/ FL/FL guidance in treatment room IMPRESSION: There are 2 digital images obtained in the OR. There is needle positioned posterior to L4 vertebra likely epidural space. No contrast is visualized. FLUOROSCOPY TIME: 0.8 minutes DOSE AREA PRODUCT: 0.491 uGy-m2 (microgray-meter squared) Electronically signed by: Adolfo Summers MD 08/11/2024 09:53 AM [facility]
--- OUTSIDE RECORDS SUMMARY | 2024-08-10 06:38 | XMS_ITS | Encounter Summary ---
Author Organization [facility] Address [address] [place] [address] Care Team Providers Care Program Paraprofessional Name Role Phone Leonor Kirk MD Primary Care Provider [phone] Reason for Visit * Episode Based Medications (Routine) - Authorized Specialty Diagnoses / Procedures Referred By Roberto t Referred To Contact Diagnoses Esophageal cancer, stage IV (CMS/HCC) Brielle Walsh DO [address] [place] [address] Phone: tel: fax: [address] [address] Phone: tel: fax: Referral ID Status Reason Start Date Expiration Date V isits Requested Visits Authorized [id number] Authorized 03/11/2024 03/11/2025 1 28 Encounter Details Date Type Department Care Team (Latest Contact Info) Description 07/14/2024 9:00 AM EST - 07/14/2024 11:59 PM EST Hospital Encounter [address] [id number] Brielle Walsh DO [address] [place] [id number] Esophageal cancer, stage IV (CMS/HCC) (Primary Dx) Discharge Disposition: Home or Self Care Social History Tobacco Use Types Packs/Day Years Used Date Smoking Tobacco: Never Smokeless Tobacco: Never Alcohol Use Standard Drinks/Week Comments Not Currently 0 (1 standard drink = 0.6 oz pur e alcohol) Housing Instability Answer Date Recorde d Are you worried that in the next 2 months you may not have stable housing? No 04/23/2024 Food Access & Nutrition Answer Date Rec orded Do you have access to a vari ety of food including fruits and vegetables? Yes 04/23/2024 Access to Healthcare Answer Date Record ed Within the last 3 months, ho w many times did you visit the emergency department for your medical care? 1 04/23/2024 Health Literacy Answer Date Recorded How often do you need to hav e someone help you when you read instructions, pamphlets, or other written material from your doctor or pharmacy? Sometimes 04/23/2024 Caregiver: How often do you need to have someone help you when you read instructions, pamphlets, or other written material from your doctor or pharmacy? Not on file 04/23/2024 Financial Risk Answer Date Recorded How hard is it for you to pa y for the very basics like food, housing, medical care, and air conditioning / heating? Somewhat hard 04/23/2024 Transportation Answer Date Recorded Has the lack of transportati on kept you from meetings, work, or from getting things needed for daily living? No Has the lack of transportati on kept you from medical appointments or from getting medications? No 04/23/2024 Social Isolation Answer Date Recorded How often do you feel lonely or isolated from th ose around you? Never 04/23/2024 Food Risk Answer Date Recorded Within the past 12 months we worried whether our food would run out before we got money to buy more. Never true 04/23/2024 Within the past 12 months th e food we bought just didn't last and we didn't have money to get more. Never true 04/23/2024 Dependent Care Answer Date Recorded Do you need help finding or paying for care for your loved ones. For example, early childhood teacher or elderly care for an older adult? No 04/23/2024 Education Answer Date Recorded Do you think completing more education or training, like finishing a GED, going to college, or learning a trade, would be helpful for you? No 04/23/2024 Employment and Income Answer Date Recor ded During the last four weeks, have you been actively looking for work? No 04/23/2024 Living Situation Answer Date Recorded What is your living situation? 1 06/23/2023 Sex and Gender Information Value Date Recorded Sex Assigned at Male 04/20/2024 1:50 PM EST Legal Sex Male 12:32 PM EST Gender Identity Male 04/20/2024 1:50 PM EST Sexual Orientation Straight 04/20/2024 1: 50 PM EST documented as of this encounter Last Filed Vital Signs Vital Sign Reading Time Taken Comments Blood Pressure 110/63 07/14/2024 9:19 AM EST Pulse 76 07/14/2024 9:19 AM EST Temperature 36.2 ??C (97.1 ??F) 07/14/2024 9:19 AM ES T Respiratory Rate 18 07/14/2024 9:19 AM EST Oxygen Saturation 97% 07/14/2024 9:19 AM EST Inhaled Oxygen Concentration - - Weight 151 kg (331 lb 12.7 oz) 07/14/2024 9:19 A M EST Height - - Body Mass Index 47.61 06/29/2024 9:26 AM EST documented in this encounter Medications at Time of Discharge acetaminophen (TYLENOL 8 HOUR) 650 mg 8 hr tablet Take 1 tablet (650 mg total) by mouth every 8 (eight) hours if needed. albuterol HFA (PROAIR HFA ; PROVENTIL HFA ; VENTOLIN HFA) 90 mcg/actuation inhaler Inhale 2 puffs by mouth. 12/22/2023 apixaban (Eliquis) 5 mg tablet Take 1 tablet (5 mg total) by mouth 2 (two) times a day. 10/27/2023 Asmanex Twisthaler 220 mcg/ actuation (30) aerosol powdr breath activated inhaler INHALE 1 PUFF INTO LUNGS ONCE DAILY 1 each 4 05/13/2024 atorvastatin (LIPITOR) 40 mg tablet Take 1 tablet (40 mg total) by mouth 1 (one) time each day. 90 tablet 1 04/13/2024 cefuroxime (CEFTIN) 500 mg tablet Take 1 tablet (500 mg total) by mouth 2 (two) times a day. 05/24/2024 cetirizine (ZyrTEC) 10 mg tablet Take 1 tablet (10 mg total) by mouth 2 (two) times a day if needed. 12/16/2023 cholecalciferol (VITAMIN D-3) 25 mcg (1,000 unit) tablet Take 1 tablet (1,000 Units total) by mouth 2 (two) times a day. 12/22/2023 cranberry 500 mg capsule Take 500 mg by mouth 1 (one) time each day. cyclobenzaprine (FLEXERIL) 10 mg tablet TAKE 1 TABLET BY MOUTH 2 TIMES DAILY NEEDED FOR MUSCLE SPASMS. 180 tablet 06/25/2024 d-mannose 500 mg capsule Take 2,000 mg by mouth 1 (one) time each day. ferrous sulfate 325 mg (65 mg elemental iron) tablet Take 1 tablet (325 mg total) by mouth 2 (two) times a day. 12/22/2023 fluticasone HFA (Flovent HFA) 110 mcg/actuation inhaler INHALE 1 PUFF INTO THE LUNGS 2 TIMES DAILY 02/14/2023 furosemide (LASIX) 20 mg tablet Take 1 tablet (20 mg total) by mouth 1 (one) time each day if needed (leg swelling after chemotherapy.). 30 tablet 5 05/25/2024 gabapentin (NEURONTIN) 600 mg tablet Take 1 tablet (600 mg total) by mouth 3 (three) times a day. lidocaine-prilocai ne (EMLA) 2.5-2.5 % cream Apply topically. 01/28/2024 LORazepam (ATIVAN) 0.5 mg tablet Take 1 tablet (0.5 mg total) by mouth at bedtime as needed for anxiety. Max Daily Amount: 0.5 mg 60 tablet 06/03/2024 Magic Mouthwash 1:1:1 (diphenhydrAMINE-l idocaine 2% trtphcd-eyczvvjy-b agnesium hydroxide-simethic one) suspension (compound) 10 mL every 30 minutes as needed. 01/23/2023 magnesium oxide (MAG-OX) 400 mg (241.3 elemental magnesium) tablet Take 1 tablet (400 mg total) by mouth 3 (three) times a day. 10/15/2022 metoprolol tartrate (LOPRESSOR) 50 mg tablet TAKE 1 TABLET BY MOUTH TWICE A DAY 180 tablet 07/12/2024 mirtazapine (REMERON) 15 mg tablet Take 1 tablet (15 mg total) by mouth at bedtime. 90 tablet 1 04/13/2024 mometasone (Asmanex Twisthaler) 220 mcg/ actuation (120) aerosol powdr breath activated inhaler Inhale 1 puff by mouth. 08/11/2023 ondansetron (ZOFRAN) 4 mg tablet Take 1 tablet (4 mg total) by mouth every 8 (eight) hours if needed. prochlorperazine (COMPAZINE) 10 mg tablet Take 1 tablet (10 mg total) by mouth every 6 hours as needed. 01/17/2023 topiramate (TOPAMAX) 50 mg tablet Take 1 tablet (50 mg total) by mouth 2 (two) times a day. 08/14/2023 traZODone (DESYREL) 50 mg tablet Take 1 tablet (50 mg total) by mouth at bedtime. 90 tablet 1 04/13/2024 betamethasone dipropionate (DIPROSONE) 0.05 % ointment Apply topically 2 (two) times a day if needed for irritation or rash. 30 g 07/05/2024 5 diclofenac (VOLTAREN) 1 % topical gel APPLY 2 TO 4 GRAMS TOPICALLY 4 TIMES A NEEDED FOR SHOULDER/KNEE PAIN FOR OUP TO 30 DAYS 100 g 1 05/17/2024 5 omeprazole (PriLOSEC) [address] capsule Take 1 capsule (20 mg total) by mouth 2 (two) times a day. 90 capsule 1 04/26/2024 5 documented as of this encounter Discharge Disposition Disposition Code Departure Means Destination Home or Self Care documented in this encounter Progress Notes * Roxana Marte, MARY ANNE - 07/14/2024 9:00 AM EST 0920- Pt arrived today via WC, accompanied by , for stat labs and treatment. Pt continues with chronic neuropathy and fatigue. Pt otherwise reports feeling well overall and denies acute complaints or changes since last visit. Port accessed without diff. Labs collected/sent stat. Pt resting comfortably at this time. Call finnegan in reach. 1015- Labs resulted and WNL for chemotherapy today. Ma.7. Based off parameters in electrolyte therapy plan, 2gm mag sulfate released and initiated. Treatment released and pre meds given. Pt resting comfortably and watching TV at this time. Call finnegan in reach. 1305- Magnesium completed without incident. Leucovorin initiated and completed without incident. 5FU push given. +BR noted throughout administration. 5FU pump attached. Connections secured. Infusion verified. Pump takedown appt provided and will provide next chemo appt when pt comes on Friday. Pt left unit, stable at D/C. documented in this encounter Plan of Treatment Upcoming Encounters Date Type Department Care Team (Late st Contact Info) Description 08/17/2024 9:00 AM EDT Appointment [facility] Infusion [facility] [address] [place] [phone] 08/17/2024 9:30 AM EDT Appointment [facility] CT Scan [address] [place] [phone] 08/18/2024 9:00 AM EDT Appointment [facility] Infusion [facility] [address] [place] [phone] 08/25/2024 9:00 AM EDT Office Visit [facility] Hematology Oncology [address] [place] [phone] Brielle Walsh, [address] [place] [address] documented as of this encounter Procedures Procedure Name Priority Date/Time Associated Diagnosis Comments CBC WITH AUTO DIFFERENTIAL STAT 07/14/2024 9:18 AM EST Esophageal cancer, stage IV (CMS/HCC) CBC AND DIFFERENTIAL STAT 07/14/2024 9:18 AM EST Esophageal cancer, stage IV (CMS/HCC) MAGNESIUM STAT 07/14/2024 9:18 AM EST Esophageal cancer, stage IV (CMS/HCC) COMPREHENSIVE METABOLIC PANEL STAT 07/14/2024 9:18 AM EST Esophageal cancer, stage IV (CMS/HCC) documented in this encounter Results * (ABNORMAL) CBC auto differential (07/14/2024 9:18 AM EST) WBC 6.9 4.8 - 10.8 K/mcL LAB HEMETOLOGY METHOD 07/14/2024 9:28 AM [facility] RBC 3.10(L) 4.50 - 5.50 M/mcL LAB HEMETOLOGY METHOD 07/14/2024 9:28 AM [facility] Hemoglobin 10.5(L) 13.5 - 17.5 g/dL LAB HEMETOLOGY METHOD 07/14/2024 9:28 AM [facility] Hematocrit 32.0(L) 42.0 - 54.0 % LAB HEMETOLOGY METHOD 07/14/2024 9:28 AM [facility] MCV 103.6(H) 79.0 - 98.0 FL LAB HEMETOLOGY METHOD 07/14/2024 9:28 AM [facility] MCH 34.0(H) 27.0 - 32.0 pcg LAB HEMETOLOGY METHOD 07/14/2024 9:28 AM [facility] MCHC 32.8 32.0 - 37.0 g/dL LAB HEMETOLOGY METHOD 07/14/2024 9:28 AM [facility] RDW 14.6 11.0 - 15.0 % LAB HEMETOLOGY METHOD 07/14/2024 9:28 AM [facility] Platelets 150 130 - 400 K/mcL LAB HEMETOLOGY METHOD 07/14/2024 9:28 AM [facility] MPV 9.5 7.0 - 11.0 FL LAB HEMETOLOGY METHOD 07/14/2024 9:28 AM [facility] NRBC 0.0 <1.0 % LAB HEMETOLOGY METHOD 07/14/2024 9:28 AM [facility] NRBC Absolute 0.00 <0.10 K/mcL LAB HEMETOLOGY METHOD 07/14/2024 9:28 AM [facility] Neutrophils Relative 74.6 % LAB HEMETOLOGY METHOD 07/14/2024 9:28 AM [facility] Lymphocytes Relative 9.7 % LAB HEMETOLOGY METHOD 07/14/2024 9:28 AM [facility] Monocytes Relative 8.4 % LAB HEMETOLOGY METHOD 07/14/2024 9:28 AM [facility] Eosinophils Relative 6.2 % LAB HEMETOLOGY METHOD 07/14/2024 9:28 AM [facility] Basophils Relative 0.7 % LAB HEMETOLOGY METHOD 07/14/2024 9:28 AM [facility] Immature Granulocytes Relative 0.4 % LAB HEMETOLOGY METHOD 07/14/2024 9:28 AM [facility] Neutrophils Absolute 5.13 1.50 - 7.00 K/mcL LAB HEMETOLOGY METHOD 07/14/2024 9:28 AM [facility] Lymphocytes Absolute 0.67(L) 1.00 - 5.00 K/mcL LAB HEMETOLOGY METHOD 07/14/2024 9:28 AM [facility] Monocytes Absolute 0.58 0.20 - 1.00 K/mcL LAB HEMETOLOGY METHOD 07/14/2024 9:28 AM [facility] Eosinophils Absolute 0.43 0.00 - 0.50 K/mcL LAB HEMETOLOGY METHOD 07/14/2024 9:28 AM [facility] Basophils Absolute 0.05 0.00 - 0.20 K/mcL LAB HEMETOLOGY METHOD 07/14/2024 9:28 AM [facility] Immature Granulocytes Absolute 0.03 0.00 - 0.03 K/mcL LAB HEMETOLOGY METHOD 07/14/2024 9:28 AM [facility] Blood Blood sample taken from central line / Unknown Existing Catheter / Unknown 07/14/2024 9:18 AM EST 07/14/2024 9:24 AM EST us Brielle Websteruliffe DO LAB BLOOD ORDERABLES Final Result [facility] [address] [place] [address], [place] [phone] * (ABNORMAL) Comprehensive metabolic panel (07/14/2024 9:18 AM EST) Sodium 141 133 - 145 mmol/L LAB CHEMISTRY METHOD 07/14/2024 9:51 AM [facility] Potassium 3.7 3.5 - 5.5 mmol/L LAB CHEMISTRY METHOD 07/14/2024 9:51 AM [facility] Chloride 105 96 - 110 mmol/L LAB CHEMISTRY METHOD 07/14/2024 9:51 AM [facility] CO2 24 21 - 32 mmol/L LAB CHEMISTRY METHOD 07/14/2024 9:51 AM [facility] Anion Gap 12(H) 3 - 11 LAB CHEMISTRY METHOD 07/14/2024 9:51 AM [facility] Glucose 137(H) 70 - 100 mg/dL LAB CHEMISTRY METHOD 07/14/2024 9:51 AM [facility] BUN 16 5 - 25 mg/dL LAB CHEMISTRY METHOD 07/14/2024 9:51 AM [facility] Creatinine 1.16 0.70 - 1.30 mg/dL LAB CHEMISTRY METHOD 07/14/2024 9:51 AM [facility] eGFR 71 >=60 mL/min/1. 73m2 LAB CHEMISTRY METHOD 07/14/2024 9:51 AM [facility] Comment:Calculation based on the??Chronic Kidney Disease Epidemiology Collaboration (CKD-EPI) equation refit??without adjustment for race. BUN/Creatinine Ratio 13.8 LAB CHEMISTRY METHOD 07/14/2024 9:51 AM [facility] Calcium 8.9 8.5 - 10.5 mg/dL LAB CHEMISTRY METHOD 07/14/2024 9:51 AM [facility] AST (SGOT) 16 10 - 42 unit/L LAB CHEMISTRY METHOD 07/14/2024 9:51 AM [facility] ALT (SGPT) 30 10 - 60 unit/L LAB CHEMISTRY METHOD 07/14/2024 9:51 AM [facility] Alkaline Phosphatase 165(H) 42 - 121 unit/L LAB CHEMISTRY METHOD 07/14/2024 9:51 AM [facility] Total Protein 6.3 6.0 - 8.0 g/dL LAB CHEMISTRY METHOD 07/14/2024 9:51 AM [facility] Albumin 3.4 3.2 - 5.0 g/dL LAB CHEMISTRY METHOD 07/14/2024 9:51 AM [facility] Total Bilirubin 0.5 0.0 - 1.4 mg/dL LAB CHEMISTRY METHOD 07/14/2024 9:51 AM [facility] Blood Blood sample taken from central line / Unknown Existing Catheter / Unknown 07/14/2024 9:18 AM EST 07/14/2024 9:24 AM EST us Brielle Walsh DO LAB BLOOD ORDERABLES Final Result [facility] [address] [place] [address], * (ABNORMAL) Magnesium (07/14/2024 9:18 AM EST) Magnesium 1.7(L) 1.9 - 2.6 mg/dL LAB CHEMISTRY METHOD 07/14/2024 9:51 AM EST [facility] Blood Blood sample taken from central line / Unknown Existing Catheter / Unknown 07/14/2024 9:18 AM EST 07/14/2024 9:24 AM EST Brielle Hooks Nico DO LAB BLOOD ORDERABLES Final Result [facility] [address] [place] [address], documented in this encounter Visit Diagnoses Diagnosis Esophageal cancer, stage IV (CMS/HCC)- Primary documented in this encounter Administered Medications Inactive Administered Medications - up to 3 most recent administrations Medication Order MAR Action Action Date Dose Rate Site dexAMETHasone (DECADRON) tablet 8 mg 8 mg, oral, Once, On Fri07/14/24 at 1015, For 1 doseIndications:Esophageal cancer, stage IV (CMS/HCC) Given 07/14/2024 10:09 AM EST 8 mg fluorouracil (ADRUCIL) 5,200 mg in sodium chloride 0.9 % 138 mL chemo infusion 5,200 mg (rounded from 5,180 mg = 2,000 mg/m2 ? 2.59 m2), intravenous, at 3 mL/hr, Administer over 46 Hours, Once, On Fri07/14/24 at 1100, For 1 dose, Fluorouracil is administered as a continuous infusion over 46 hours within this regimen. This agent requires a central venous access device for administration in this regimen. Protect from light HAZARDOUS Drug Precautions - High Risk (Category C/NIOSH Group 1) Antineoplastic: - Double pair of ASTM standard [id number] certified chemotherapy gloves - Chemotherapy gown - Closed-System Transfer Device (CSTD) recommended - Eye protection (goggles or face shield) required only with a potential for facial contact (i.e. concern for spitting or vomiting of the dose during or after administration)Indications:E sophageal cancer, stage IV (CMS/HCC) Given 07/14/2024 12:51 PM EST 5,200 mg 3 mL/hr fluorouracil (ADRUCIL) chemo injection 950 mg 950 mg, intravenous, Once, On Fri07/14/24 at 1015, For 1 dose, Protect from light HAZARDOUS Drug Precautions - High Risk (Category C/NIOSH Group 1) Antineoplastic: - Double pair of ASTM standard [id number] certified chemotherapy gloves - Chemotherapy gown - Closed-System Transfer Device (CSTD) recommended - Eye protection (goggles or face shield) required only with a potential for facial contact (i.e. concern for spitting or vomiting of the dose during or after administration)Indications:E sophageal cancer, stage IV (CMS/HCC) Given 07/14/2024 12:51 PM EST 950 mg leucovorin 1,050 mg in dextrose 302.5 mL IVPB 1,050 mg (rounded from 1,036 mg = 400 mg/m2 ? 2.59 m2), intravenous, at 151.3 mL/hr, Administer over 120 Minutes, Once, On Fri07/14/24 at 1015, For 1 dose, Protect from lightIndications:Esophageal cancer, stage IV (CMS/HCC) New Bag 07/14/2024 11:46 AM EST 1,050 mg 151.3 mL/hr magnesium sulfate 2 gram/50 mL (4 %) IVPB 2 g 2 g, intravenous, at 25 mL/hr, Administer over 2 Hours, Once as needed, For Magnesium Level of 1.5 - 1.8 mg/dL, Starting on Fri07/14/24 at 1015, For 1 dose, For Magnesium Level of 1.5 - 1.8 mg/dL (One dose for a total of 2 g)Indications:Esophageal cancer, stage IV (CMS/HCC) New Bag 07/14/2024 10:13 AM EST 2 g 50 mL/hr ondansetron ODT (ZOFRAN-ODT) disintegrating tablet 16 mg 16 mg, oral, Once, On Fri07/14/24 at 1015, For 1 doseIndications:Esophageal cancer, stage IV (CMS/HCC) Given 07/14/2024 10:09 AM EST 16 mg documented in this encounter Orders Medications Ordered That Bull ht Not Have Been Administered Count Last Ordered Date First Ordered Date sodium chloride 0.9 % infusion 1 07/14/2024 Nursing Count Last Ordered Date First Orde red Date NCCN PARAMETERS 1 07/14/2024 NCCN PARAMETERS - FLUOROURACIL 1 07/14/2024 NCCN PARAMETERS - LEUCOVORIN 1 07/14/2024 ONC NURSING COMMUNICATION 1 07/14/2024 ONC NURSING COMMUNICATION 10 07/14/2024 ONC NURSING COMMUNICATION 11 1 07/14/2024 TREATMENT CONDITIONS 2 07/14/2024 Appointment Requests Count Last Ordered Date Fi rst Ordered Date ONCBCN CALCULATED LENGTH INF USION APPOINTMENT REQUEST 1 1 07/14/2024 documented in this encounter Additional Health Concerns Assessment Noted Time PHQ-9 Depression Total Score: 0 04/23/20 24 5:25 PM EST documented as of this encounter Care Teams Program Paraprofessional Relationship Specialty Start Date End Date Leonor Kirk MD [address] [place] [address] PCP - General 10/01/1997 documented as of this encounter
--- OUTSIDE RECORDS SUMMARY | 2024-08-10 06:38 | XMS_ITS | Encounter Summary ---
Author Organization [place] [address] Care Team Providers Care Hot Tamale Worker Name Role Phone Leonor Kirk MD Primary Care Provider [phone] Reason for Visit * Reason Comments Follow-up Encounter Details Date Type Department Care Team (Latest Contact Info) Description 07/27/2024 11:00 AM EST Office Visit [facility] Hematology Oncology [address] [place] [id number] Kirk Collazo PA [address] [place] [address] Esophageal cancer, stage IV (CMS/HCC) (Primary Dx); Anemia due to antineoplastic chemotherapy; Hypomagnesemia; Weakness of both lower extremities; History of pulmonary embolism Social History Tobacco Use Types Packs/Day Years Used Date Smoking Tobacco: Never Smokeless Tobacco: Never Tobacco Cessation:Counseling Given: Not Answered Alcohol Use Standard Drinks/Week Comments Not Currently [...] care for your loved ones. For example, child development director or elderly care for an older adult? [...] Sign Reading Time Taken Comments Blood Pressure 122/66 07/27/2024 11:06 AM EST Pulse 88 07/27/2024 11:06 AM EST Temperature 36 ??C (96.8 ??F) 07/27/2024 11:06 AM EST Respiratory Rate - - Oxygen Saturation 96% 07/27/2024 11:06 AM EST Inhaled Oxygen Concentration - - Weight 152 kg (334 lb) 07/27/2024 11:06 AM EST Height - - Body Mass Index 47.92 06/29/2024 9:26 AM EST documented in this encounter Progress Notes * SOBEIDA Hoyt - 07/27/2024 11:00 AM ESTAddended by: KIRK COLLAZO on: 07/27/2024 03:29 PM Modules accepted: Orders * SOBEIDA Hoyt - 07/27/2024 11:00 AM EST Hematology/Oncology Progress Note 07/27/24 Subjective Patient identifier: 64 y.o. metastatic esophageal cancer on 5FU , leucovorin Interim history: Nimesh presents today for routine follow-up accompanied by his . Patient reports that his hips are feeling better after steroid injections, administered ~ 6 months ago. He will now be having injections in his spine which is planned for August.] He recently underwent evaluation by urology for further investigation of microscopic hematuria. He was supposed to have a cystoscopy but urology team decided against it. Supposedly, as long as he does not get any UTIs, no follow- up needed with urology for a year. He was started on cranberry pills. He denies any dysphagia or abdominal pain. Energy improving Still with some residual minor palpable discomfort on the right chest wall which is nearly resolved, no hemoptysis or or SOB Constitutional: See above Resp/CV: No cough, shortness of breath GI: No nausea, vomiting, diarrhea, : See above. Skin: No rashes Neuro: No headaches, dizziness, Musculoskeletal: +chronic back pain. Hem/Lymph : No bruising or bleeding Oncology history: Oncology History Esophageal cancer, stage IV (CMS/HCC) 07/18/2022 Initial Diagnosis Esophageal cancer, stage IV (CMS/HCC) 04/14/2024 - Chemotherapy dexAMETHasone (DECADRON) tablet 8 mg, 8 mg (original dose ), oral, Once, 8 of 13 cycles Dose modification: 8 mg (Cycle 0) Administration: 8 mg (04/14/2024), 8 mg (04/28/2024), 8 mg (05/12/2024), 8 mg (06/01/2024), 8 mg (06/15/2024), 8 mg (06/29/2024), 8 mg (07/14/2024) ondansetron ODT (ZOFRAN-ODT) disintegrating tablet 16 mg, 16 mg (100 % of original dose 16 mg), oral, Once, 7 of 12 cycles Dose modification: 8 mg (original dose 16 mg, Cycle 1), 16 mg (original dose 16 mg, Cycle 1) Administration: 16 mg (04/14/2024), 16 mg (04/28/2024), 16 mg (05/12/2024), 16 mg (06/01/2024), 16 mg(06/15/2024), 16 mg (06/29/2024), 16 mg (07/14/2024) leucovorin 1,000 mg in dextrose 300 mL IVPB, 400 mg/m2 = 1,000 mg, intravenous, Once, 7 of 12 cycles Administration: 1,000 mg (04/14/2024), 1,000 mg (04/28/2024), 1,000 mg (05/12/2024), 1,000 mg (06/01/2024), 1,000 mg (06/15/2024), 1,050 mg (06/29/2024), 1,050 mg (07/14/2024) fluorouracil (ADRUCIL) 5,050 mg in sodium chloride 0.9 % 138 mL chemo infusion, 2,000 mg/m2 = 5,050mg (100 % of original dose 2,000 mg/m2), intravenous, Once, 7 of 12 cycles Dose modification: 2,000 mg/m2 (100 % of original dose 2,000 mg/m2, Cycle 1, Reason: Dose Not Tolerated) Administration: 5,050 mg (04/14/2024), 5,100 mg (04/28/2024), 5,100 mg (05/12/2024), 5,100 mg (06/01/2024), 5,100 mg (06/15/2024), 5,150 mg (06/29/2024), 5,200 mg (07/14/2024) alteplase (CATHFLO ACTIVASE) injection 2 mg, 2 mg, intra-catheter, As needed, 7 of 12 cycles fluorouracil (ADRUCIL) chemo injection 950 mg, 950 mg (100 % of original dose 950 mg), intravenous,Once, 7 of 12 cycles Dose modification: 950 mg (original dose 950 mg, Cycle 1, Reason: Treatment Parameters Not Met, Comment: adding back 5fu push to the treatment) Administration: 950 mg (04/14/2024), 950 mg (04/28/2024), 950 mg (05/12/2024), 950 mg (06/01/2024), 950 mg (06/15/2024), 950 mg (06/29/2024), 950 mg (07/14/2024) 04/20/2024 Cancer Staged Staging form: Esophagus - Adenocarcinoma, AJCC 8th Edition - Clinical: Stage IVB (cM1) - Signed by Brielle Walsh DO on 04/20/2024 06/15/2024 - Supportive Therapy HYDRATION AND ELECTROLYTES Plan Provider: Brielle Walsh DO Objective Last Vitals Vitals: 07/27/24 1106 BP: 122/66 Pulse: 88 Temp: 36 ??C (96.8 ??F) SpO2: 96% ECO General: well nourished male HENT: no scleral icterus Chest: Right sided port no surrounding erythema Resp: clear to auscultation bilaterally Cardio: regular rate and rhythm, Abdomen: obese, soft non tender, non distended Extremities: bilateral leg edema Neuro: alert and oriented, slow gait, in a wheelchair Medications Current Outpatient Medications: acetaminophen (TYLENOL 8 HOUR) 650 mg 8 hr tablet, Take 1 tablet (650 mg total) by mouth every 8 (eight) hours if needed., Disp: , Rfl: albuterol HFA (PROAIR HFA ; PROVENTIL HFA ; VENTOLIN HFA) 90 mcg/actuation inhaler, Inhale 2 puffs by mouth., Disp: , Rfl: apixaban (Eliquis) 5 mg tablet, Take 1 tablet (5 mg total) by mouth 2 (two) times a day., Disp: , Rfl: Asmanex Twisthaler 220 mcg/ actuation (30) aerosol powdr breath activated inhaler, INHALE 1 PUFF INTO LUNGS ONCE DAILY, Disp: 1 each, Rfl: 4 atorvastatin (LIPITOR) 40 mg tablet, Take 1 tablet (40 mg total) by mouth 1 (one) time each day., Disp: 90 tablet, Rfl: 1 betamethasone dipropionate (DIPROSONE) 0.05 % ointment, Apply topically 2 (two) times a day if needed for irritation or rash., Disp: 30 g, Rfl: 0 cetirizine (ZyrTEC) 10 mg tablet, Take 1 tablet (10 mg total) by mouth 2 (two) times a day if needed., Disp: , Rfl: cholecalciferol (VITAMIN D-3) 25 mcg (1,000 unit) tablet, Take 1 tablet (1,000 Units total) by mouth 2 (two) times a day., Disp: , Rfl: cranberry 500 mg capsule, Take 500 mg by mouth 1 (one) time each day., Disp: , Rfl: cyclobenzaprine (FLEXERIL) 10 mg tablet, TAKE 1 TABLET BY MOUTH 2 TIMES DAILY NEEDED FOR MUSCLE SPASMS., Disp: 180 tablet, Rfl: 0 d-mannose 500 mg capsule, Take 2,000 mg by mouth 1 (one) time each day., Disp: , Rfl: diclofenac (VOLTAREN) 1 % topical gel, APPLY 2 TO 4 GRAMS TOPICALLY 4 TIMES A NEEDED FOR SHOULDER/KNEE PAIN FOR UP TO 30 DAYS, Disp: 120 g, Rfl: 2 ferrous sulfate 325 mg (65 mg elemental iron) tablet, Take 1 tablet (325 mg total) by mouth 2 (two)times a day., Disp: , Rfl: furosemide (LASIX) 20 mg tablet, Take 1 tablet (20 mg total) by mouth 1 (one) time each day if needed (leg swelling after chemotherapy.)., Disp: 30 tablet, Rfl: 5 gabapentin (NEURONTIN) 600 mg tablet, Take 1 tablet (600 mg total) by mouth 3 (three) times a day.,Disp: , Rfl: lidocaine-prilocaine (EMLA) 2.5-2.5 % cream, Apply topically., Disp: , Rfl: LORazepam (ATIVAN) 0.5 mg tablet, Take 1 tablet (0.5 mg total) by mouth at bedtime as needed for anxiety. Max Daily Amount: 0.5 mg, Disp: 60 tablet, Rfl: 0 Magic Mouthwash 1:1:1 (diphenhydrAMINE-lidocaine 2% jbgaaqe-vzfvcakr-yktecvszb hydroxide-simethicone) suspension (compound), 10 mL every 30 minutes as needed., Disp: , Rfl: magnesium oxide (MAG-OX) 400 mg (241.3 elemental magnesium) tablet, Take 1 tablet (400 mg total) bymouth 3 (three) times a day., Disp: , Rfl: metoprolol tartrate (LOPRESSOR) 50 mg tablet, TAKE 1 TABLET BY MOUTH TWICE A DAY, Disp: 180 tablet,Rfl: 0 mirtazapine (REMERON) 15 mg tablet, Take 1 tablet (15 mg total) by mouth at bedtime., Disp: 90 tablet, Rfl: 1 mometasone (Asmanex Twisthaler) 220 mcg/ actuation (120) aerosol powdr breath activated inhaler, Inhale 1 puff by mouth., Disp: , Rfl: omeprazole (PriLOSEC) [address] capsule, Take 1 capsule (20 mg total) by mouth 2 (two) times a day.,Disp: 60 each, Rfl: 5 ondansetron (ZOFRAN) 4 mg tablet, Take 1 tablet (4 mg total) by mouth every 8 (eight) hours if needed., Disp: , Rfl: prochlorperazine (COMPAZINE) 10 mg tablet, Take 1 tablet (10 mg total) by mouth every 6 hours as needed., Disp: , Rfl: topiramate (TOPAMAX) 50 mg tablet, Take 1 tablet (50 mg total) by mouth 2 (two) times a day., Disp:, Rfl: traZODone (DESYREL) 50 mg tablet, Take 1 tablet (50 mg total) by mouth at bedtime., Disp: 90 tablet, Rfl: 1 cefuroxime (CEFTIN) 500 mg tablet, Take 1 tablet (500 mg total) by mouth 2 (two) times a day. (Patient not taking: Reported on 06/01/2024), Disp: , Rfl: fluticasone HFA (Flovent HFA) 110 mcg/actuation inhaler, INHALE 1 PUFF INTO THE LUNGS 2 TIMES DAILY, Disp: , Rfl: Allergies No Known Allergies Past medical history, past surgical history, and family history reviewed. 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 Lab Results Component Value Date WBC 6.9 07/14/2024 HGB 10.5 (L) 07/14/2024 HCT 32.0 (L) 07/14/2024 MCV 103.6 (H) 07/14/2024 PLT 150 07/14/2024 Lab Results Component Value Date NA 141 07/14/2024 K 3.7 07/14/2024 CL 105 07/14/2024 CO2 24 07/14/2024 GLUCOSE 137 (H) 07/14/2024 BUN 16 07/14/2024 CREATININE 1.16 07/14/2024 CALCIUM 8.9 07/14/2024 PROT 6.3 07/14/2024 ALBUMIN 3.4 07/14/2024 BILITOT 0.5 07/14/2024 AST 16 07/14/2024 ALT 30 07/14/2024 MG 1.7 (L) 07/14/2024 ALKPHOS 165 (H) 07/14/2024 EGFR 71 07/14/2024 Assessment & Plan 64-year-old male with metastatic esophageal cancer. Baseline imaging with widespread disease with supraclavicular, mediastinal and abdominal adenopathy as well as osseous metastases. Started on FOLFOX + nivolumab and developed immunotherapy neurologic toxicity with lower extremity weakness in both upper thighs, now with significant improvement. The oxaliplatin has been discontinued and he has been on 5FU and leucovorin maintenance alone Follow-up CT scan shows no significant metastatic disease. Prior PET did show still minimal uptake in the esophagus. We have been continuing on therapy Metastatic esophageal adenocarcinoma, PD-L1 CPS of 80, HER 2 negative. Chemotherapy induced anemia and leukopenia Port a cath in place Proceed with cycle #46 of chemotherapy- plan includes oxaliplatin with 5-FU and leucovorin alone every 2 weeks-5-FU at 2000 mg/m?? - no further immunotherapy or oxaliplatin. Labs to be done STAT -- CBC CMP magnesium prior to each treatment and wait for results . Use lasix 20mg po to use PRN for leg swelling after chemo Monitor for side effects of cytotoxic chemotherapy CT scan of the chest abdomen pelvis to be performed in August - 3 months from prior (scheduled for 08/17/24) Follow-up in 2 weeks with MD; RTC sooner prn Obtain follow-up notes from urology Labs reviewed - plan signed. Hypomagnesemia Labs ordered as above, replete with IV mag as needed Lower extremity weakness/neuropathy Follow-up with neurology ongoing History of PE Continue on eliquis Sign SOBEIDA Horton-C - Hematology/Oncology [facility] CC: Leonor Kirk MD Encounter involves complex MDM, high risk chemo , ordering labs, coordination of care with nursing ; documentation in medical record, face to face with patient, management of patient in longitudinal fashion for a serious condition (cancer, PE, anemia) Cosigned by Brielle Walsh DO at 08/01/2024 3:05 PM EST documented in this encounter Plan of Treatment Upcoming Encounters Date Type Department Care Team (Late st Contact Info) Description 08/17/2024 9:00 AM EDT Appointment [facility] [address] [place] [phone] 08/17/2024 9:30 AM EDT Appointment [facility] CT Scan [address] [place] [phone] 08/18/2024 9:00 AM EDT Appointment [facility] [address] [place] [phone] 08/25/2024 9:00 AM EDT Office Visit [facility] Hematology Oncology [address] [place] [phone] Brielle Walsh DO [address] [place] [phone] documented as of this encounter Results * Magnesium (07/27/2024 11:44 AM EST) Magnesium 1.9 1.9 - 2.6 mg/dL LAB CHEMISTRY METHOD 07/27/2024 2:38 PM [facility] Blood Venous blood specimen / Unknown Venipuncture / Unknown 07/27/2024 11:44 AM EST 07/27/2024 1:39 PM EST us Kirk VIDALES LAB BLOOD ORDERABLES Final Resul t [facility] [address] [place] [address], * (ABNORMAL) Comprehensive metabolic panel (07/27/2024 11:44 AM EST) Pathologist [facility] [place] Sodium 138 133 - 145 mmol/L LAB CHEMISTRY METHOD 07/27/2024 2:38 PM [facility] Potassium 3.8 3.5 - 5.5 mmol/L LAB CHEMISTRY METHOD 07/27/2024 2:38 PM [facility] Chloride 107 96 - 110 mmol/L LAB CHEMISTRY METHOD 07/27/2024 2:38 PM [facility] CO2 25 21 - 32 mmol/L LAB CHEMISTRY METHOD 07/27/2024 2:38 PM [facility] Anion Gap 6 3 - 11 LAB CHEMISTRY METHOD 07/27/2024 2:38 PM [facility] Glucose 157(H) 70 - 100 mg/dL LAB CHEMISTRY METHOD 07/27/2024 2:38 PM [facility] BUN 15 5 - 25 mg/dL LAB CHEMISTRY METHOD 07/27/2024 2:38 PM [facility] Creatinine 1.24 0.70 - 1.30 mg/dL LAB CHEMISTRY METHOD 07/27/2024 2:38 PM [facility] eGFR 65 >=60 mL/min/1. 73m2 LAB CHEMISTRY METHOD 07/27/2024 2:38 PM [facility] Comment:Calculation based on the??Chronic Kidney Disease Epidemiology Collaboration (CKD-EPI) equation refit??without adjustment for race. BUN/Creatinine Ratio 12.1 LAB CHEMISTRY METHOD 07/27/2024 2:38 PM [facility] Calcium 9.2 8.5 - 10.5 mg/dL LAB CHEMISTRY METHOD 07/27/2024 2:38 PM [facility] AST (SGOT) 16 10 - 42 unit/L LAB CHEMISTRY METHOD 07/27/2024 2:38 PM [facility] ALT (SGPT) 30 10 - 60 unit/L LAB CHEMISTRY METHOD 07/27/2024 2:38 PM [facility] Alkaline Phosphatase 183(H) 42 - 121 unit/L LAB CHEMISTRY METHOD 07/27/2024 2:38 PM [facility] Total Protein 6.5 6.0 - 8.0 g/dL LAB CHEMISTRY METHOD 07/27/2024 2:38 PM [facility] Albumin 3.4 3.2 - 5.0 g/dL LAB CHEMISTRY METHOD 07/27/2024 2:38 PM [facility] Total Bilirubin 0.5 0.0 - 1.4 mg/dL LAB CHEMISTRY METHOD 07/27/2024 2:38 PM [facility] Blood Venous blood specimen / Unknown Venipuncture / Unknown 07/27/2024 11:44 AM EST 07/27/2024 1:39 PM EST us Kirk VIDALES LAB BLOOD ORDERABLES Final Resul t [facility] [address] [place] [address], documented in this encounter Visit Diagnoses Diagnosis Esophageal cancer, stage IV (CMS/HCC)- Primary Anemia due to antineoplastic chemotherapy Antineoplastic chemotherapy induced anemia Hypomagnesemia Disorders of magnesium metabolism Weakness of both lower extremities History of pulmonary embolism Personal history of venous thrombosis and embolism documented in this encounter Additional Health Concerns Assessment Noted Time PHQ-9 Depression Total Score: 0 04/23/20 24 5:25 PM EST documented as of this encounter Care Teams Hot Tamale Worker Relationship Specialty Start Date End Date Leonor Kirk MD [address] [place] [address] PCP - General 10/01/1997 documented as of this encounter
--- OUTSIDE RECORDS SUMMARY | 2024-08-10 06:38 | XMS_ITS ---
Author Organization [facility] Address [address] [place] [address] Care Team Providers Care Supervisor Television Chassis Rep[employer] Name Role Phone Leonor Kirk MD Primary Care Provider [phone] Active Problems Problem Noted Date Diagnosed Date Chronic GERD 08/20/2023 08/20/2023 Hypomagnesemia 02/19/2023 Lower extremity weakness 01/24/2023 024 Myelitis 01/24/2023 08/20/2023 Esophageal cancer, stage IV 07/18/2022 Benign essential hypertension 01/24/2006 Overview: Last Assessment & Plan: Patient's blood pressure is acceptable today. He will continue his current antihypertensive medication regimen. Current Oncology Plans [facility] OP 5FU / leucovorin (nivolumab DC)* Plan Start Date:07/22/2022 Plan Provider:Brielle Walsh DO Linked Problems Esophageal cancer, stage IV (HCC) Treatment Medications albuterol (PROVENTIL)dexamet hasone (DECADRON)dextrose 5 %diphenhydrAMINE (BENADRYL)EPINEPHrinefamotidine (PF) (PEPCID)fluorouracil (5 FU) 46 Hr Chemo infusion- Home Usefluorouracil (ADRUCIL)hydrocortisone (SOLU-CORTEF) IVleucovorin (WELLCOVORIN) infusionloperamide (IMODIUM) 2 MGmagnesium sulfatemagnesium sulfate 1g/100 mL D5W premix IVPBmeperidine (DEMEROL) 25 MG/MLnivolumab (OPDIVO) infusionondansetron (ZOFRAN)ondansetron (ZOFRAN-ODT)oxaliplatin (ELOXATIN) chemo infusionpalonosetron (ALOXI)Saline Flush 0.9 %sodium chloride (NS) 0.9 %sodium chloride 0.9% bolus (NS) Past Plans ONCOLOGY INFUSION THERAPY Plan Name Start Date Discontinue Date Treatment Medications Discontinue Reason Plan Provider [facility] OP HYDRATION & [facility] OP MAGNESIUM IV REPLETION 07/16/2023 02/23/2024 magnesium sulfatesodium chloride (NS) 0.9 %sodium chloride 0.9 % with KCl 20 mEq Therapy Complete Brielle Walsh N, DO Radiation Treatments * No radiation treatments are documented for this patient in [facility]. Treatments may have been administered in another system.
--- OUTSIDE RECORDS SUMMARY | 2024-08-10 06:38 | XMS_ITS | Encounter Summary ---
Author Organization [place] [address] Care Team Providers Care Bureau Director Name Role Phone Leonor Kirk MD Primary Care Provider [phone] Reason for Visit * Reason Comments Fall Slip and fall onto k nees in the ice. Encounter Details Date Type Department Care Team (Late st Contact Info) Description 07/28/2024 8:33 AM EST - 07/28/2024 10:51 AM EST Emergency [facility] Emergency [address] [place] [phone] Farhad Benitez MD [address] [place] [phone] Fall, initial encounter (Primary Dx); Contusion of right knee, initial encounter Discharge Disposition: Home or Self Care Social [...] for your loved ones. For example, child care sitter or elderly care for an older adult? [...] Sign Reading Time Taken Comments Blood Pressure 142/78 07/28/2024 8:43 AM EST Pulse 88 07/28/2024 8:43 AM EST Temperature 36.7 ??C (98 ??F) 07/28/2024 8:43 AM EST Respiratory Rate 20 07/28/2024 8:43 AM EST Oxygen Saturation 98% 07/28/2024 8:43 AM EST Inhaled Oxygen Concentration - - Weight 152 kg (334 lb) 07/28/2024 8:43 AM EST Height 170.2 cm (5' 7 ) 07/28/2024 8:43 AM EST Body Mass Index 52.31 07/28/2024 8:43 AM EST documented in this encounter Functional Status * Are you deaf or do you have serious difficulty hearing? Answer Date of Assessment Author No 07/28/2024 8:46 AM Monalisa Tavarez RN * Are you blind or do you have serious difficulty seeing, even when wearing glasses? Answer Date of Assessment Author No 07/28/2024 8:46 AM Monalisa Tavarez RN * Do you have serious difficulty walking or climbing stairs? Answer Date of Assessment Author No 07/28/2024 8:46 AM Monalisa Tavarez RN * Do you have serious difficulty dressing or bathing? Answer Date of Assessment Author No 07/28/2024 8:46 AM Monalisa Tavarez RN * Because of a physical, mental, or emotional condition, do you have serious difficulty doing errandsalone such as visiting the doctor? Answer Date of Assessment Author No 07/28/2024 8:46 AM Monalisa Tavarez RN documented as of this encounter Mental Status * Because of a physical, mental, or emotional condition, do you have serious difficulty concentrating, remembering, or making decisions? (5 years old or older) Answer Entry Date Author No 07/28/2024 8:46 AM Monalisa Tavarez RN documented in this encounter Discharge Instructions * Attachments The following attachments cannot be sent through Care Everywhere. * Contusion (British) * Knee Pain or Injury (British) documented in this encounter Medications at Time [...] by mouth 1 (one) time each day. diclofenac (VOLTAREN) 1 % topical gel APPLY 2 TO 4 GRAMS TOPICALLY 4 TIMES A NEEDED FOR SHOULDER/KNEE PAIN FOR UP TO 30 DAYS 120 g 2 07/16/2024 ferrous sulfate 325 mg (65 mg elemental [...] 06/03/2024 Magic Mouthwash 1:1:1 (diphenhydrAMINE-l idocaine 2% loyzaom-mfyzlhcl-a agnesium hydroxide-simethic one) suspension (compound) 10 mL [...] inhaler Inhale 1 puff by mouth. 08/11/2023 omeprazole (PriLOSEC) [address] capsule Take 1 capsule (20 mg total) by mouth 2 (two) times a day. 60 each 5 07/22/2024 ondansetron (ZOFRAN) 4 mg tablet Take 1 [...] mouth at bedtime. 90 tablet 1 04/13/2024 oxyCODONE-acetamin ophen (PERCOCET) 5-325 mg per tabletIndications: Contusion of right knee, initial encounter Take 1 tablet by mouth every 6 (six) hours if needed for severe pain for up to 3 days. Max Daily Amount: 4 tablets 12 tablet 07/28/2024 5 betamethasone dipropionate (DIPROSONE) 0.05 % ointment Apply topically 2 (two) times a day if needed for irritation or rash. 30 g 07/05/2024 5 documented as of this encounter Ordered Prescriptions Prescription Sig Dispense Quantity Refills Last Filled Start Date End Date oxyCODONE-acetamin ophen (PERCOCET) 5-325 mg per tabletIndications: Contusion of right knee, initial encounter Take 1 tablet by mouth every 6 (six) hours if needed for severe pain for up to 3 days. Max Daily Amount: 4 tablets 12 tablet 07/28/2024 5 documented in this encounter Discharge Disposition Disposition Code Departure Means Destination Comment s Home or Self Care documented in this encounter Progress Notes * Elzbieta Rowell RN - 07/28/2024 8:34 AM EST Patient was helping push the car out on the ice and he pushed and slipped and fell to knees. He denies head strike and denies any loc. Patient with 6/10 bilateral knee pain. * Farhad Benitez MD - 07/28/2024 8:22 AM EST HPI Chief Complaint Patient presents with ??? Fall Slip and fall onto knees in the ice. Patient with a history of esophageal cancer on chemotherapy presents today with bilateral knee painafter slipping on the ice while attempting to push his car out of a pothole. The car moved and he fell down hitting both knees on the ground. He denies any other significant injury. No weakness numbness paresthesias. He was unable to get up secondary to the pain. He is brought in by EMS He did not strike his head No data recorded Patient History Past Medical History: Diagnosis Date ??? Esophageal reflux 01/24/2006 DX:Esophageal reflux; COMMENT: Discussed side effect, pt prefers continued PPI use ??? ETOH abuse DX:ETOH abuse ??? Hypertension DX:Hypertension ??? Obesity, unspecified 04/28/2006 DX:Obesity, unspecified ??? Other lymphedema 04/28/2006 DX:Other lymphedema ??? Pure hypercholesterolemia 04/28/2006 DX:Pure hypercholesterolemia ??? Umbilical hernia 09/07/2008 DX:Umbilical hernia; COMMENT: See note, pt declined surgery 10/29/12 Past Surgical History: Procedure Laterality Date ??? COLONOSCOPY 01/18/2013 PROCEDURE: HISTORICAL COLONOSCOPY; COMMENT: adenoma; repeat in 5 yrs ??? HERNIA REPAIR PROCEDURE:HERNIA REPAIR ??? HERNIA REPAIR 09/24/2021 PROCEDURE: HISTORICAL HERNIA REPAIR/UMB; COMMENT: Incarcerated umbilical hernia with mesh ??? OTHER SURGICAL HISTORY 07/09/2022 PROCEDURE: HISTORY OTHER; COMMENT: laparoscopic gastrostomy tube placement Family History Problem Relation Name Age of Onset ??? Heart attack Father sudden at age 44 ??? Hypertension Mother Social History Tobacco Use ??? Smoking status: Never ??? Smokeless tobacco: Never Substance Use Topics ??? Alcohol use: Not Currently ??? Drug use: No Review of Systems Review of Systems Constitutional: Negative for fever. Cardiovascular: Negative for chest pain and leg swelling. Gastrointestinal: Negative for abdominal pain. Musculoskeletal: Negative for back pain and neck pain. Neurological: Positive for weakness. Physical Exam ED Triage Vitals Temp Pulse Resp BP -- -- -- -- SpO2 Temp src Heart Rate Source Patient Position -- -- -- -- BP Location FiO2 (%) -- -- Physical Exam Constitutional: Appearance: Normal appearance. HENT: Head: Normocephalic and atraumatic. Nose: Nose normal. Pulmonary: Effort: Pulmonary effort is normal. Abdominal: Tenderness: There is no abdominal tenderness. Musculoskeletal: Cervical back: Normal range of motion and neck supple. No tenderness. Comments: Bilateral knee tenderness over the patella and patellar tendon. No obvious deformity. Surrounding erythema and ecchymosis already present. Normal range of motion of the knees. Neurological: General: No focal deficit present. Mental Status: He is alert and oriented to person, place, and time. ED Course & MDM ED Course as of 07/28/24 1558 FriJul 28, 2024 1000 X-ray showing no evidence of acute injury. Stable for discharge home [LD] ED Course User Index [LD] Farhad Benitez MD Clinical Impressions as of 07/28/24 1558 Fall, initial encounter Contusion of right knee, initial encounter Medical Decision Making Bilateral patella and patella tendon contusion versus fracture versus disruption. X-rays ordered Procedures Farhad Benitez MD 07/28/24 0951 Farhad Benitez MD 07/28/24 1558 documented in this encounter Plan of Treatment Upcoming Encounters Date Type Department Care Team (Late st Contact Info) Description 08/17/2024 9:00 AM EDT Appointment [facility] [address] [place] [phone] 08/17/2024 9:30 AM EDT Appointment [facility] CT Scan [address] [place] [phone] 08/18/2024 9:00 AM EDT Appointment [address] [phone] 08/25/2024 9:00 AM EDT Office Visit [facility] H[facility] Oncology [address] [place] [phone] Brielle Walsh, [address] [place] [address] documented as of this encounter Procedures Procedure Name Priority Date/Time Associated Diagnosis Comments XR KNEE 4+ VIEWS BILAT STAT 07/28/2024 9:31 AM EST documented in this encounter Results * XR Knee 4+ Views bilat (07/28/2024 9:31 AM EST) Anatomical Region Laterality Modality Lower Extremities, Knee Bilateral Radiogra psychiatricc Imaging 07/28/2024 9:43 AM EST Impressions 07/28/2024 9:46 AM EST Degenerative changes of the right knee. ??No acute findings. -------- FINAL REPORT -------- Dictated By: Liban Maddox Dictated Date: 07/28/2024 09:43 ET Assigned Physician: Liban Maddox Reviewed and Electronically Signed By: Liban Maddox Signed Date: 07/28/2024 09:46 ET Workstation ID: [id number] Transcribed By: Self Edit Transcribed Date: 07/28/2024 09:43 ET Narrative 07/28/2024 9:46 AM EST PROCEDURE: Radiographs of both knees. HISTORY: Knee trauma, tenderness or effusion, no prior imaging (Age >= 1y). COMPARISON: None. FINDINGS: There is mild medial compartment joint space loss in the right with mild spurring of the tibial spines and small tricompartmental osteophytes. No focal bony lesion. ??No fracture. ??No joint effusion. Procedure Note Liban Maddox MD - 07/28/2024 PROCEDURE: Radiographs of both knees. HISTORY: Knee trauma, tenderness or effusion, no prior imaging (Age >=1y). COMPARISON: None. FINDINGS: There is mild medial compartment joint space loss in the right with mildspurring of the tibial spines and small tricompartmental osteophytes. No focal bony lesion. No fracture. No joint effusion. IMPRESSION: Degenerative changes of the right knee. No acute findings. -------- FINAL REPORT -------- Dictated By: Liban Maddox Dictated Date: 07/28/2024 09:43 ET Assigned Physician: Liban Maddox Reviewed and Electronically Signed By: Liban Maddox Signed Date: 07/28/2024 09:46 ET Workstation ID: [id number] Transcribed By: Self Edit Transcribed Date: 07/28/2024 09:43 ET Farhad Benitez MD IMG XR PROCEDURES Final Result documented in this encounter Visit Diagnoses Diagnosis Fall, initial encounter- Primary Contusion of right knee, initial encounter documented in this encounter Administered Medications Inactive Administered Medications - up to 3 most recent administrations Medication Order MAR Action Action Date Dose Rate Site oxyCODONE-acetaminophen (PERCOCET) 5-325 mg per tablet 2 tablet 2 tablet, oral, Once, On Fri07/28/24 at 0850, For 1 dose Given 07/28/2024 8:50 AM EST 2 tablets documented in this encounter Active and Recently Administered Medications Times are shown in EST. Scheduled Medication Order 07/26/2024 07/27/2024 07/28/2024 oxyCODONE-acetaminophen (PERCOCET) 5-325 mg per tablet 2 tablet (COMPLETED) 2 tablet, oral, Once, On Fri07/28/24 at 0850, For 1 dose 0850 (Given - Provid er: Elzbeita Rowell RN) documented in this encounter Orders Medications Ordered That Bull ht Not Have Been Administered Count Last Ordered Date First Ordered Date oxyCODONE-acetaminophen (PER COCET) 5-325 mg per tablet 2 tablet 1 07/28/2024 documented in this encounter Additional Health Concerns Assessment Noted Time PHQ-9 Depression Total Score: 0 04/23/20 24 5:25 PM EST documented as of this encounter Care Teams Bureau Director Relationship Specialty Start Date End Date Leonor Kirk MD [address] [place] [address] PCP - General 10/01/1997 documented as of this encounter
--- OUTSIDE RECORDS SUMMARY | 2024-08-10 06:38 | XMS_ITS | Encounter Summary ---
Author Organization [place] [address] Care Team Providers Care Security Flex Utility Officer Name Role Phone Leonor Kirk MD Primary Care Provider [phone] Reason for Visit * Reason Comments Chemotherapy Pump Takedown Encounter Details Date Type Department Care Team (Latest Contact Info) Description 08/06/2024 10:45 AM EST - 08/06/2024 11:59 PM EST Hospital Encounter [facility] [address] [phone] Brielle Walsh, [address] [place] [address] Esophageal cancer, stage IV (CMS/HCC) (Primary Dx) [...] for your loved ones. For example, child study team director or elderly care for an older [...] PM EST documented as of this encounter Functional Status * Are you deaf or do you have serious difficulty hearing? Answer Date of Assessment Author No 07/28/2024 8:46 AM EST Monalisa Rowell RN * Are you blind or do [...] Monalisa Tavarez RN documented in this encounter Medications at Time [...] time each day. 90 tablet 1 04/13/2024 betamethasone dipropionate (DIPROSONE) 0.05 % ointment Apply topically 2 (two) times a day if needed for irritation or rash. 30 g 07/30/2024 cefuroxime (CEFTIN) 500 mg tablet Take 1 [...] 06/03/2024 Magic Mouthwash 1:1:1 (diphenhydrAMINE-l idocaine 2% wjkfrbc-wrhbbgzk-h agnesium hydroxide-simethic one) suspension (compound) 10 mL [...] mouth at bedtime. 90 tablet 1 04/13/2024 documented as of this encounter Discharge Disposition Disposition Code Departure Means Destination Home or Self Care documented in this encounter Progress Notes * Precious Ortega RN - 08/06/2024 10:45 AM EST 1055- Patient arrives, via power wheelchair to unit accompanied by Vale for pump takedown following chemotherapy on Friday. Today is cycle 8, day 3 in [facility]. He denies any issues with the pump or infusion while at home. Arrives in good spirits, joking with the staff. At 1052, 0 mls of 5-FU remain, therefore all 138 mls infused total. Port flushed and deaccessed per protocol. Pressuredressing applied to site. Patient and both aware of next appointments in place - provided at the last visit. They confirm the appointments are written down at home. Patient left the unit stable,via power wheelchair accompanied by Vale to the car. No questions or concerns upon discharge. documented in this encounter Plan of Treatment Upcoming Encounters Date Type Department Care Team (Late st Contact Info) Description 08/17/2024 9:00 AM EDT Appointment [facility] [address] [place] [phone] 08/17/2024 9:30 AM EDT Appointment [facility] CT Scan [address] [place] [phone] 08/18/2024 9:00 AM EDT Appointment [facility] [address] [place] [phone] 08/25/2024 9:00 AM EDT Office Visit [facility] Hemat[facility] Oncology [address] [place] [phone] Brielle Walsh DO [address] [place] [address] documented as of this encounter Visit Diagnoses Diagnosis Esophageal cancer, stage IV (CMS/HCC)- Primary documented in this encounter Administered Medications Inactive Administered Medications - up to 3 most recent administrations Medication Order MAR Action Action Date Dose Rate Site sodium chloride 0.9 % flush 10 mL 10 mL, intravenous, As needed, line care, per institutional policy, Starting on Fri08/06/24 at 1102Indications:Esophageal cancer, stage IV (CMS/HCC) Given 08/06/2024 10:52 AM EST 10 mL documented in this encounter Orders Medications Ordered That Bull ht Not Have Been Administered Count Last Ordered Date First Ordered Date sodium chloride 0.9 % flush 3 mL 1 08/06/19 25 Nursing Count Last Ordered Date First Orde red Date ONC NURSING COMMUNICATION 12 1 08/06/2024 documented in this encounter Additional Health Concerns Assessment Noted Time PHQ-9 Depression Total Score: 0 04/23/20 5:25 PM EST documented as of this encounter Care Teams Security Flex Utility Officer Relationship Specialty Start Date End Date Leonor Kirk MD [address] [place] [address] PCP - General 10/01/1997 documented as of this encounter
--- OUTSIDE RECORDS SUMMARY | 2024-08-10 06:38 | XMS_ITS | Encounter Summary ---
Author Organization [facility] Address [address] [place] [address] Care Team Providers Care Veterinary Practice Manager Name Role Phone Leonor Kirk MD Primary Care Provider [phone] Reason for Visit * Episode Based Medications (Routine) - Authorized Specialty Diagnoses / Procedures Referred By Roberto vela Referred To Contact Diagnoses Esophageal cancer, stage IV (CMS/HCC) Brielle Walsh DO [address] [place] [address] Phone: tel: fax: [address] [address] Phone: tel: fax: Referral ID Status Reason Start Date Expiration Date V isits Requested Visits Authorized [id number] Authorized 03/11/2024 03/11/2025 28 Encounter Details Date Type Department Care Team (Latest Contact Info) Description 08/04/2024 9:00 AM EST - 08/04/2024 11:59 PM EST Hospital Encounter [address] [phone] Brielle Walsh DO [address] [place] [id number] Esophageal carcinoma (CMS/HCC) (Primary Dx); Esophageal cancer, stage IV (CMS/HCC) Discharge Disposition: Home or Self Care Social [...] Sign Reading Time Taken Comments Blood Pressure 123/87 08/04/2024 9:25 AM EST Pulse 82 08/04/2024 9:25 AM EST Temperature 36.4 ??C (97.6 ??F) 08/04/2024 9:25 AM ES T Respiratory Rate 18 08/04/2024 9:25 AM EST Oxygen Saturation 100% 08/04/2024 9:25 AM EST Inhaled Oxygen Concentration - - Weight - - Height - - Body Mass Index - - documented in this encounter Functional Status * [...] 06/03/2024 Magic Mouthwash 1:1:1 (diphenhydrAMINE-l idocaine 2% btnbdiz-irigrpse-i agnesium hydroxide-simethic one) suspension (compound) 10 mL [...] times a day. 60 each 5 07/22/2024 5 ondansetron (ZOFRAN) 4 mg tablet Take 1 [...] documented in this encounter Progress Notes * Debora Niak MA - 08/04/2024 9:00 AM ESTEncounter addended by: Debora Naik MA on: 08/05/2024 1:29 PM Actions taken: Charge Capture section accepted * Elzbieta Rowell RN - 08/04/2024 9:00 AM EST Patient arrives for tx. Last week he was pushing his wifes car out of the ice and he slipped and landed on both knees. He melia hitting head or any loc. Patient called 911 because he was unable to stand and transported to ER where he had xrays and everything was negative. Patient states he is doing well but still have soreness. He has a small abrasion to left knee. Patient is able to walk but just states his knees are stiff. He has been icing bilateral knees and doing gentle stretching. Patient tells this RN he is extremely fatigued. He states he is sleeping a lot and states I'm only awake for about 6 hours a day we decided we should repeat stat labs today before treatment. Port accessed and stat labs obtained and sent Call finnegan at [facility], will monitor. Labs reviewed and ok to treat, patient good with plan. Pre-meds given, call finnegan at [facility], will monitor 5FU push given with + brisk blood return with each push. Patient hooked up to 5fu pump with green light running. Patient had acute complaints- left stable via motorized scooter. All appointments made and given- instructed to call with any questions or concerns. documented in this encounter Plan of Treatment Upcoming Encounters Date Type Department Care Team (Late st Contact Info) Description 08/17/2024 9:00 AM EDT Appointment [facility] [address] [place] [phone] 08/17/2024 9:30 AM EDT Appointment [facility] CT Scan [address] [place] [phone] 08/18/2024 9:00 AM EDT Appointment [facility] [address] [place] [phone] 08/25/2024 9:00 AM EDT Office Visit [facility] Hematology Oncology [address] [place] [phone] Brielle Walsh DO [address] [place] [phone] documented as of this encounter Procedures Procedure Name Priority Date/Time Associated Diagnosis Comments CBC WITH AUTO DIFFERENTIAL Routine 08/04/2024 9:27 AM EST Esophageal carcinoma (CMS/HCC) CBC AND DIFFERENTIAL Routine 08/04/2024 9:27 AM EST Esophageal carcinoma (CMS/HCC) COMPREHENSIVE METABOLIC PANEL Routine 08/04/2024 9:27 AM EST Esophageal carcinoma (CMS/HCC) documented in this encounter Results * Magnesium (08/04/2024 9:27 AM EST) Magnesium 2.0 1.9 - 2.6 mg/dL LAB CHEMISTRY METHOD 08/04/2024 11:[address] [facility] Blood Venous blood specimen / Unknown Venipuncture / Unknown 08/04/2024 9:27 AM EST 08/04/2024 9:44 AM EST us Brielle Walsh DO LAB BLOOD ORDERABLES Final Result [facility] [address] [place] [address], * (ABNORMAL) CBC auto differential (08/04/2024 9:27 AM EST) [facility] WBC 6.7 4.8 - 10.8 K/mcL LAB HEMETOLOGY METHOD 08/04/2024 9:58 AM EST [facility] RBC 3.20(L) 4.50 - 5.50 M/mcL LAB HEMETOLOGY METHOD 08/04/2024 9:58 AM [facility] Hemoglobin 10.7(L) 13.5 - 17.5 g/dL LAB HEMETOLOGY METHOD 08/04/2024 9:58 AM [facility] Hematocrit 33.3(L) 42.0 - 54.0 % LAB HEMETOLOGY METHOD 08/04/2024 9:58 AM [facility] MCV 104.1(H) 79.0 - 98.0 FL LAB HEMETOLOGY METHOD 08/04/2024 9:58 AM [facility] MCH 33.4(H) 27.0 - 32.0 pcg LAB HEMETOLOGY METHOD 08/04/2024 9:58 AM [facility] MCHC 32.1 32.0 - 37.0 g/dL LAB HEMETOLOGY METHOD 08/04/2024 9:58 AM [facility] RDW 14.1 11.0 - 15.0 % LAB HEMETOLOGY METHOD 08/04/2024 9:58 AM [facility] Platelets 221 130 - 400 K/mcL LAB HEMETOLOGY METHOD 08/04/2024 9:58 AM [facility] MPV 9.5 7.0 - 11.0 FL LAB HEMETOLOGY METHOD 08/04/2024 9:58 AM [facility] NRBC 0.3 <1.0 % LAB HEMETOLOGY METHOD 08/04/2024 9:58 AM [facility] NRBC Absolute 0.02 <0.10 K/mcL LAB HEMETOLOGY METHOD 08/04/2024 9:58 AM [facility] Neutrophils Relative 70.8 % LAB HEMETOLOGY METHOD 08/04/2024 9:58 AM [facility] Lymphocytes Relative 10.7 % LAB HEMETOLOGY METHOD 08/04/2024 9:58 AM [facility] Monocytes Relative 10.0 % LAB HEMETOLOGY METHOD 08/04/2024 9:58 AM [facility] Eosinophils Relative 7.0 % LAB HEMETOLOGY METHOD 08/04/2024 9:58 AM [facility] Basophils Relative 0.6 % LAB HEMETOLOGY METHOD 08/04/2024 9:58 AM [facility] Immature Granulocytes Relative 0.9 % LAB HEMETOLOGY METHOD 08/04/2024 9:58 AM [facility] Neutrophils Absolute 4.76 1.50 - 7.00 K/mcL LAB HEMETOLOGY METHOD 08/04/2024 9:58 AM [facility] Lymphocytes Absolute 0.72(L) 1.00 - 5.00 K/mcL LAB HEMETOLOGY METHOD 08/04/2024 9:58 AM [facility] Monocytes Absolute 0.67 0.20 - 1.00 K/mcL LAB HEMETOLOGY METHOD 08/04/2024 9:58 AM [facility] Eosinophils Absolute 0.47 0.00 - 0.50 K/mcL LAB HEMETOLOGY METHOD 08/04/2024 9:58 AM [facility] Basophils Absolute 0.04 0.00 - 0.20 K/mcL LAB HEMETOLOGY METHOD 08/04/2024 9:58 AM [facility] Immature Granulocytes Absolute 0.06(H) 0.00 - 0.03 K/mcL LAB HEMETOLOGY METHOD 08/04/2024 9:58 AM [facility] Blood Venous blood specimen / Unknown Venipuncture / Unknown 08/04/2024 9:27 AM EST 08/04/2024 9:44 AM EST us Brielle Walsh DO LAB BLOOD ORDERABLES Final Result [facility] [address] [place] [address], [place] [phone] * (ABNORMAL) Comprehensive metabolic panel (08/04/2024 9:27 AM EST) Sodium 141 133 - 145 mmol/L LAB CHEMISTRY METHOD 08/04/2024 10:18 AM [facility] Potassium 3.9 3.5 - 5.5 mmol/L LAB CHEMISTRY METHOD 08/04/2024 10:18 AM [facility] Chloride 107 96 - 110 mmol/L LAB CHEMISTRY METHOD 08/04/2024 10:18 AM [facility] CO2 26 21 - 32 mmol/L LAB CHEMISTRY METHOD 08/04/2024 10:18 AM [facility] Anion Gap 8 3 - 11 LAB CHEMISTRY METHOD 08/04/2024 10:18 AM [facility] Glucose 165(H) 70 - 100 mg/dL LAB CHEMISTRY METHOD 08/04/2024 10:18 AM [facility] BUN 12 5 - 25 mg/dL LAB CHEMISTRY METHOD 08/04/2024 10:18 AM [facility] Creatinine 1.12 0.70 - 1.30 mg/dL LAB CHEMISTRY METHOD 08/04/2024 10:18 AM [facility] eGFR 74 >=60 mL/min/1. 73m2 LAB CHEMISTRY METHOD 08/04/2024 10:18 AM EST [facility] Comment:Calculation based on the??Chronic Kidney Disease Epidemiology Collaboration (CKD-EPI) equation refit??without adjustment for race. BUN/Creatinine Ratio 10.7 LAB CHEMISTRY METHOD 08/04/2024 10:18 AM [facility] Calcium 9.1 8.5 - 10.5 mg/dL LAB CHEMISTRY METHOD 08/04/2024 10:18 AM [facility] AST (SGOT) 18 10 - 42 unit/L LAB CHEMISTRY METHOD 08/04/2024 10:18 AM [facility] ALT (SGPT) 28 10 - 60 unit/L LAB CHEMISTRY METHOD 08/04/2024 10:18 AM [facility] Alkaline Phosphatase 184(H) 42 - 121 unit/L LAB CHEMISTRY METHOD 08/04/2024 10:18 AM [facility] Total Protein 6.3 6.0 - 8.0 g/dL LAB CHEMISTRY METHOD 08/04/2024 10:18 AM [facility] Albumin 3.4 3.2 - 5.0 g/dL LAB CHEMISTRY METHOD 08/04/2024 10:18 AM [facility] Total Bilirubin 0.4 0.0 - 1.4 mg/dL LAB CHEMISTRY METHOD 08/04/2024 10:18 AM [facility] Blood Venous blood specimen / Unknown Venipuncture / Unknown 08/04/2024 9:27 AM EST 08/04/2024 9:44 AM EST us Brielle Walsh DO LAB BLOOD ORDERABLES Final Result [facility] [address] [place] [address], documented in this encounter Visit Diagnoses Diagnosis Esophageal carcinoma (CMS/HCC)- Primary Malignant neoplasm of esophagus, unspecified site Esophageal cancer, stage IV (CMS/HCC) documented in this encounter Administered Medications Inactive Administered Medications - up to 3 most recent administrations Medication Order MAR Action Action Date Dose Rate Site dexAMETHasone (DECADRON) tablet 8 mg 8 mg, oral, Once, On Fri08/04/24 at 1045, For 1 doseIndications:Esophageal cancer, stage IV (CMS/HCC) Given 08/04/2024 10:35 AM EST 8 mg fluorouracil (ADRUCIL) 5,050 mg in sodium chloride 0.9 % 138 mL chemo infusion 5,050 mg (rounded from 5,040 mg = 2,000 mg/m2 ? 2.52 m2), intravenous, at 3 mL/hr, Administer over 46 Hours, Once, On Fri08/04/24 at 1130, For 1 dose, Fluorouracil is administered as [...] vomiting of the dose during or after administration)Indications:Es ophageal cancer, stage IV (CMS/HCC) Given 08/04/2024 12:39 PM EST 5,050 mg 3 mL/hr fluorouracil (ADRUCIL) chemo injection 950 mg 950 mg, intravenous, Once, On Fri08/04/24 at 1045, For 1 dose, Protect from light HAZARDOUS Drug Precautions - High Risk (Category C/NIOSH Group 1) Antineoplastic: - Double pair of ASTM standard D6978 certified chemotherapy gloves - Chemotherapy gown - Closed-System Transfer Device (CSTD) recommended - Eye protection (goggles or face shield) required only with a potential for facial contact (i.e. concern for spitting or vomiting of the dose during or after administration)Indications:Es ophageal cancer, stage IV (CMS/HCC) Given 08/04/2024 12:38 PM EST 950 mg leucovorin 1,000 mg in dextrose 300 mL IVPB 1,000 mg (rounded from 1,008 mg = 400 mg/m2 ? 2.52 m2), intravenous, at 600 mL/hr, Administer over 30 Minutes, Once, On Fri08/04/24 at 1045, For 1 dose, Protect from lightIndications:Esophageal cancer, stage IV (CMS/HCC) New Bag 08/04/2024 11:19 AM EST 1,000 mg 600 mL/hr ondansetron ODT (ZOFRAN-ODT) disintegrating tablet 16 mg 16 mg, oral, Once, On Fri08/04/24 at 1045, For 1 doseIndications:Esophageal cancer, stage IV (CMS/HCC) Given 08/04/2024 10:35 AM EST 16 mg sodium chloride 0.9 % infusion 20 mL/hr, intravenous, As needed, To keep vein open per institutional policy, Starting on Fri08/04/24 at 1020, For 1 dayIndications:Esophageal cancer, stage IV (CMS/HCC) New Bag 08/04/2024 10:35 AM EST 20 mL/hr 20 mL/hr documented in this encounter Additional Health Concerns Assessment Noted Time PHQ-9 Depression Total Score: 0 04/23/20 24 5:25 PM EST documented as of this encounter Care Teams Veterinary Practice Manager Relationship Specialty Start Date End Date Leonor Kirk MD [address] [place] [address] PCP - General [birth year]/01/1997 documented as of this encounter
--- OUTSIDE RECORDS SUMMARY | 2024-08-10 06:38 | XMS_ITS | Encounter Summary ---
Author Organization [facility] [place] [address] Care Team Providers Care After School Program Director Name Role Phone Leonor Kirk MD Primary Care Provider [phone] Reason for Visit * Reason Onset Date Comments prior auth for meds 07/14/2024 Encounter Details Date Type Department Care Team ([facility] st Contact Info) Description 07/14/2024 Telephone Adult Medicine [facility] [address] [place] [phone] Leonor Kirk MD [address] [place] [address] prior auth for meds Social History Tobacco Use Types Packs/Day Years [...] for your loved ones. For example, child life specialist or elderly care for an older adult? [...] PM EST documented as of this encounter Progress Notes * Noemy Zavaleta MA - 07/22/2024 4:02 PM EST Spoke with [facility] who stated that the pharmacy was running it under a non covered ndc They switched it out and got a paid claim This is all set. * Sara Sparks - 07/14/2024 4:18 PM EST Prior Authorization for Medication-do not complete and send this encounter unless you have the fax from the pharmacy. Is this a Cover My Meds request: Rouse of Medication Metoprolol Dose of Medication 50mg What is the RX # from the faxed refill? How does patient take this med? What Pharmacy did the fax come from: [facility] fax #: [employer] Information from fax: What Prescription Plan does the patient have? BIN/PCN if applicable: [id number] Cardholder ID: Person Code: Relationship Code: Help desk phone: documented in this encounter Plan of Treatment Upcoming Encounters Date Type Department Care Team (Late st Contact Info) Description 08/17/2024 9:00 AM EDT Appointment [facility] [address] [place] [phone] 08/17/2024 9:30 AM EDT Appointment [facility] CT Scan [address] [place] [phone] 08/18/2024 9:00 AM EDT Appointment [facility] [address] [place] [phone] 08/25/2024 9:00 AM EDT Office Visit [facility] Hematology Oncology [address] [place] [phone] Brielle Walsh DO [address] [place] [address] documented as of this encounter Visit Diagnoses Not on filedocumented in this encounter Additional Health Concerns Assessment Noted Time PHQ-9 Depression Total Score: 0 04/23/20 24 5:25 PM EST documented as of this encounter Care Teams After School Program Director Relationship Specialty Start Date End Date Leonor Kirk MD [address] [place] [address] PCP - General 10/01/1997 documented as of this encounter
--- OUTSIDE RECORDS SUMMARY | 2024-08-10 06:38 | XMS_ITS | Encounter Summary ---
Author Organization [employer] [place] [address] Care Team Providers Care Warp Changer Name Role Phone Leonor Kirk MD Primary Care Provider [phone] Encounter Details Date Type Department Care Team (Late st Contact Info) Description 06/10/2024 Lab Requisition [facility] [address] [facility] [place] [address] Any Peralta MD [address] [facility] [address] [place] [address] Elevated prostate specific antigen (PSA) Social History Tobacco Use Types Packs/Day Years [...] for your loved ones. For example, child support specialist or elderly care for an older [...] PM EST documented as of this encounter Plan of Treatment Upcoming Encounters Date Type Department Care Team (Late st Contact Info) Description 08/17/2024 9:00 AM EDT Appointment [facility] [address] [phone] 08/17/2024 9:30 AM EDT Appointment [facility] CT Scan [address] [place] [phone] 08/18/2024 9:00 AM EDT Appointment [facility] [address] [phone] 08/25/2024 9:00 AM EDT Office Visit [facility] Hematology Oncology [address] [place] [phone] Brielle Walsh DO [address] [place] [address] documented as of this encounter Procedures Procedure Name Priority Date/Time Associated Diagnosis Comments PROSTATE SPECIFIC ANTIGEN DIAGNOSTIC Routine 06/10/2024 11:10 AM EST Elevated prostate specific antigen (PSA) documented in this encounter Results * Prostate specific antigen diagnostic (06/10/2024 11:10 AM EST) PSA 0.75 0.00 - 4.00 ng/mL LAB CHEMISTRY METHOD 06/10/2024 2:52 PM EST [facility] Blood Venous blood specimen / Unknown 06/10/2024 11:10 AM EST 06/10/2024 2:19 PM EST Narrative [facility] - 06/10/2024 2:52 PM EST The Siemens Advia Centaur Chemiluminescent Immunoassay is used. Results obtained with different assay methods or kits cannot be used interchangeably. Results cannot be interpreted as absolute evidence of the presence or absence of malignant disease. us Any Peralta MD LAB BLOOD ORDERABLES Fin al Result [facility] [address] [place] [address], documented in this encounter Visit Diagnoses Diagnosis Elevated prostate specific antigen (PSA) documented in this encounter Additional Health Concerns Assessment Noted Time PHQ-9 Depression Total Score: 0 04/23/20 24 5:25 PM EST documented as of this encounter Care Teams Warp Changer Relationship Specialty Start Date End Date Leonor Kirk MD [address] [place] [address] PCP - General 10/01/1997 documented as of this encounter
--- OUTSIDE RECORDS SUMMARY | 2024-08-10 06:38 | XMS_ITS | Clinical Summary ---
Author Organization [facility] Address [address] [place] [address] Care Team Providers Care Principal Consultant Name Role Phone Leonor Kirk MD Primary Care Provider [phone] Allergies No known active allergies Medications Medication Sig Dispensed Refills Start Date End Date Status atorvastatin (LIPITOR) tablet 10 mg Take 1 tablet (10 mg total) by mouth every evening. 0 Active polyethylene glycol (MIRALAX) 17 g packet Take 17 g by mouth daily. 14 each 0 07/22/2022 Active D3-1000 25 MCG (1000 UT) tablet Take by mouth daily. 0 10/15/2022 Active cyclobenzaprine (FLEXERIL) 10 MG tablet TAKE 1 TABLET BY MOUTH TWICE A DAY NEEDED FOR MUSCLE SPASM 0 10/15/2022 Active docusate sodium (COLACE) 100 MG capsule Take 1 capsule (100 mg total) by mouth 2 (two) times a day. 0 10/15/2022 Active ferrous sulfate 325 (65 FE) MG tablet Take 1 tablet (325 mg total) by mouth 2 (two) times a day. 0 10/15/2022 Active magnesium oxide (MAG-OX) 400 MG tablet Take 1 tablet (400 mg total) by mouth 3 (three) times a day. 0 10/15/2022 Active metoprolol tartrate (LOPRESSOR) 50 MG tablet Take 1 tablet (50 mg total) by mouth every 12 (twelve) hours. 0 10/15/2022 Active mirtazapine (REMERON) 15 MG tablet Take 1 tablet (15 mg total) by mouth every night at bedtime. 0 10/15/2022 Active traZODone (DESYREL) 50 MG tablet Take 1 tablet (50 mg total) by mouth every night at bedtime. 0 10/15/2022 Active omeprazole (PriLOSEC) 20 MG capsule Take 1 capsule (20 mg total) by mouth daily. 0 Active prochlorperazine (COMPAZINE) 10 MG tablet Take 1 tablet (10 mg total) by mouth every 6 (six) hours as needed (nausea/vomiting). 60 tablet 0 01/17/2023 Active Benadryl soln 12.5mg/5 qN-Omxwmw-Xokxlzky susp mouth wash 1:1:1 Swish and spit 10 mL every 4 (four) hours as needed for mucositis. 240 mL 1 01/23/2023 Active Eliquis 5 MG TABS tablet Take 1 tablet (5 mg total) by mouth 2 (two) times a day. 0 02/07/2023 Active albuterol 108 (90 Base) MCG/ACT inhaler Inhale 2 puffs into the lungs. 0 02/14/2023 Active Flovent HFA 110 MCG/ACT inhaler INHALE 1 PUFF INTO THE LUNGS 2 TIMES DAILY 0 02/14/2023 Active gabapentin (NEURONTIN) 600 MG tablet Take 1 tablet (600 mg total) by mouth 3 (three) times a day. 0 Active triamcinolone (KENALOG) 0.1 % cream Apply topically 2 (two) times a day. 30 g 0 07/24/2023 Active Additional Information Patient not taking.Reason: Not effective, Reported on 08/13/2023 oxyCODONE (ROXICODONE) 5 MG immediate release tablet Take 1 tablet (5 mg total) by mouth every 4 (four) hours as needed for pain. 30 tablet 0 08/18/2023 Active Additional Information Patient not taking.Reason: Other (pt no longer taking), Reported on 01/07/2024 topiramate (TOPAMAX) 50 MG tablet Take 1 tablet (50 mg total) by mouth 2 (two) times a day. 0 08/14/2023 Active valACYclovir (VALTREX) 1000 MG tablet TAKE 1 TABLET BY MOUTH EVERY 8 HOURS FOR 10 DAYS 0 09/01/2023 Active Urea 10 % OINT Apply small amount to affected skin once a day 180 g 0 09/09/2023 Active Additional Information Patient not taking.Reason: Other (not covered by insurance), Reported on 01/07/2024 urea (CARMOL) 10 % cream Apply small amount to hands once daily for skin irritation. 85 g 1 09/10/2023 Active Additional Information Patient not taking.Reason: Other (no longer needed), Reported on 03/03/2024 lidocaine-prilocai ne (EMLA) cream Apply topically as needed. To port site 30 minutes prior to chemotherapy 30 g 0 01/28/2024 Active LORazepam (ATIVAN) 0.5 MG tablet Take 1 tablet (0.5 mg total) by mouth every night at bedtime as needed for anxiety. 60 tablet 0 02/27/2024 Active ondansetron (ZOFRAN) 8 MG tablet Take 1 tablet (8 mg total) by mouth every 8 (eight) hours as needed for nausea. 60 tablet 0 03/31/2024 Active cetirizine (ZyrTEC) 10 MG tablet TAKE 1 TABLET BY MOUTH TWICE A DAY NEEDED 180 tablet 0 04/01/2024 Active Clobetasol Prop Emollient Base (Clobetasol Propionate E) 0.05 % emollient cream Apply 1 strip topically 2 (two) times a day. 60 g 0 04/05/2024 Active Active Problems Problem Noted Date Diagnosed Date Chronic GERD 08/20/2023 08/20/2023 Hypomagnesemia 02/19/2023 Lower extremity weakness 01/24/2023 024 Myelitis 01/24/2023 08/20/2023 Esophageal cancer, stage IV 07/18/2022 Benign essential hypertension 01/24/2006 Overview: Last Assessment & Plan: Patient's blood pressure is acceptable today. He will continue his current antihypertensive medication regimen. Family History Relation Name Status Comments Father Mother Alive Social History Tobacco Use Types Packs/Day Years Used Date Smoking Tobacco: Never Smokeless Tobacco: Never Tobacco Cessation:Counseling Given: Not Answered Alcohol Use Standard Drinks/Week Comments Not Currently 0 (1 standard drink = 0.6 oz pur e alcohol) Sex and Gender Information Value Date Recorded Sex Assigned at Male 01/05/2021 9:12 AM EDT Gender Identity Male 07/30/2022 9:21 AM EST Sexual Orientation Straight 02/18/2024 1: 05 PM EDT Job Start Date Occupation Industry Not on file Not on file Not on file Last Filed Vital Signs Vital Sign Reading Time Taken Comments Blood Pressure 140/62 03/31/2024 12:35 PM EDT Pulse 77 03/31/2024 12:35 PM EDT Temperature 36.7 ??C (98.1 ??F) 03/31/2024 12:35 PM E DT Respiratory Rate 20 03/18/2024 10:00 AM EDT Oxygen Saturation 98% 03/31/2024 12:35 PM EDT Inhaled Oxygen Concentration - - Weight 149.2 kg (329 lb) 03/31/2024 12:35 PM EDT Height 177.8 cm (5' 10 ) 03/18/2024 10:00 AM EDT Body Mass Index 47.21 03/18/2024 10:00 AM EDT Plan of Treatment Health Maintenance Due Date Last Done Comments Hepatitis C Screening 1960 COVID-19 Vaccine (#1) 1966 Pneumococcal Vaccine (1 of 2 - PCV) 1967 Depression Screening 1973 BMI Counseling 1979 Preventative Health Evaluation 1979 Colon Cancer Screening (Colonoscopy) 2006 RSV Adult > 60+ Yrs or (1 - Risk 60-74 years 1-dose series) 2021 Influenza Vaccine (#1) 2024 3, 03/10/2017, 02/12/2012 Shingrix-Zoster Vaccine (2 o f 2) 04/24/2024 02/28/2024 DTap / Tdap / Td (3 - Td or Tdap) 04/10/2032 04/10/2022, 09/20/2011 Hepatitis B Vaccines Aged Out No long er eligible based on patient's age to complete this topic RSV Ped < 20 months Aged Out No longe r eligible based on patient's age to complete this topic Care Teams Principal Consultant Relationship Specialty Start Date End Date Leonor Kirk MD PCP - General Internal Medicine 07/22/22 Lupe Llamas Front Office Medical Assistant Registered Nurse 07/22/22 Gin Tirado MD [facility] [place], Floor 4 Consulting Physician Medical Oncology 09/11/22
--- OUTSIDE RECORDS SUMMARY | 2024-08-10 06:39 | XMS_ITS | Encounter Summary ---
Author Organization [place] [address] Care Team Providers Care Order Control Clerk Blood Bank Name Role Phone Leonor Kirk MD Primary Care Provider [phone] Encounter Details Date Type Department Care Team (Late st Contact Info) Description 04/02/2024 1:16 PM EDT Hospital Encounter TH HISTORIC ENCOUNTERS [facility] CONVERSION ONLY Social History Tobacco Use Types Packs/Day Years [...] ed Within the last 3 months, ho gurwinder many times did you visit the emergency [...] your loved ones. For example, early childhood director or elderly care for an older [...] Sign Reading Time Taken Comments Blood Pressure - - Pulse - - Temperature - - Respiratory Rate - - Oxygen Saturation - - Inhaled Oxygen Concentration - - Weight 149 kg (329 lb) 03/31/2024 12:35 PM EDT Height 177.8 cm (5' 10 ) 03/18/2024 10:00 AM EDT Body Mass Index 47.21 03/31/2024 10:02 AM EDT documented in this encounter Progress Notes * Historical, Notes Results - 04/02/2024 1:15 PM EDT Patient arrives via wheelchair accompanied by his for pump disconnect. Patient is in a very good mood, joking with nurses. Patient states he tolerated treatment well. Denies diarrhea/constipation. Denies N/V. Patient has no questions/concerns for the provider. Patient received 100% of 5FU. Pump disconnected, port flushed per protocol. Deaccessed, intact. Patient has next appt. Patient discharged stable, via wheelchair, accompanied by . documented in this encounter Plan of Treatment Upcoming Encounters Date Type Department Care Team (Late st Contact Info) Description 08/17/2024 9:00 AM EDT Appointment [facility] [address] [place] [phone] 08/17/2024 9:30 AM EDT Appointment [facility] [address] [place] [phone] 08/18/2024 9:00 AM EDT Appointment [facility] [address] [place] [phone] 08/25/2024 9:00 AM EDT Office Visit [facility] Hematology Oncology [address] [place] [phone] Brielle Walsh DO [address] [place] [address] documented as of this encounter Visit Diagnoses Not on filedocumented in this encounter Care Teams Order Control Clerk Blood Bank Relationship Specialty Start Date End Date Leonor Kirk MD [address] [place] [id number] PCP - General 10/01/1997 documented as of this encounter
--- OUTSIDE RECORDS SUMMARY | 2024-08-10 06:39 | XMS_ITS ---
Author Organization [facility] Address [address] [place] [address] Phone Care Team Providers Care Skill Labor Name Role Phone Leonor Kirk MD Primary Care Provider [phone] Active Problems Problem Noted Date Diagnosed Date Hypomagnesemia 02/19/2023 Primary osteoarthritis of left hip 01/27/2023 Primary osteoarthritis of right hip 01/27/2023 Anemia 01/24/2023 Myelitis 01/24/2023 Lower extremity weakness 01/24/2023 A-fib 01/14/2023 Overview (02/20/2024): Last Assessment & Plan: The patient was noted to have atrial fibrillation RVR during a recent hospitalization in September 2022. He recently underwent a 30-day ambulatory cardiac monitor technician in February 2023 which showed sinus rhythm with an average heart rate of 84 bpm with occasional PACs and PVCs. No sustained arrhythmias were noted. During the patient triggered symptomatic events, electrocardiogram showed sinus rhythm. He also underwent an echocardiogram which showed normal LV function and no significant valve disease. We discussed these results today. We discussed the risk and benefits of anticoagulation given these results. He has a [id number] score of 1 and continues on anticoagulation with apixaban 5 mg orally twice daily based on his age, weight, and kidney function. The patient also discussed with his oncologist who recommended he continue anticoagulation. His heart rate is well-controlled today. At this point, he will continue his current dose of metoprolol for rate control and continue on anticoagulation with apixaban as prescribed. He denies any excessive bruising or bleeding. No changes to medical therapies. Esophageal cancer, stage IV 07/18/2022 Cancer Staging:Clinical:Stage IVB(cM1) - Signed by Brielle Walsh DO on 04/20/2024 Esophageal carcinoma 07/09/2022 Polyp of colon 09/21/2020 Varicose veins with pain 10/26/2018 Overview (02/20/2024): Follows with Dr. Vinson, had laser surgery ETOH abuse 10/09/2009 Overview (02/20/2024): Since 2011, only 6pk beers weekly Umbilical hernia 09/07/2008 Overview (02/20/2024): See note, pt declined surgery 10/29/12 Lymphedema of left lower extremity 04/28/2006 Obesity, unspecified 04/28/2006 Pure hypercholesterolemia 04/28/2006 Essential hypertension, benign 01/24/2006 Overview (02/20/2024): Last Assessment & Plan: Patient's blood pressure is acceptable today. He will continue his current antihypertensive medication regimen. Esophageal reflux 01/24/2006 Overview (02/20/2024): Discussed side effect, pt prefers continued PPI use Current Oncology Plans HYDRATION AND ELECTROLYTES* Plan Start Date:06/15/2024 Plan Provider:Brielle Walsh DO Linked Problems Esophageal cancer, stage IV (CMS/HCC) Treatment Medications No medications scheduled. Simplified Biweekly Infusional Fluorouracil / Leucovorin - 39 CYCLES GIVEN EXTERNALLY IN [facility]* Plan Start Date:04/12/2024 Plan Provider:Brielle Walsh DO Linked Problems Esophageal cancer, stage IV (CMS/HCC) Treatment Medications Current Day (Day 1 , Cycle 9 - Planned for 08/17/2024) Next Day (Day 3, Cycle 9 - Planned for 08/19/2024) 5-FU (ADRUCIL) chemo infusio n 250 mL - for home use solutionfluorouracil (ADRUCIL)leucovorinleucovorin IVPB in D5W (350 mg vial) fluorouracil (ADRUCIL) 5,050 mg in sodium chloride 0.9 % 250 mL chemo infusionfluorouracil (ADRUCIL) chemo injection 950 mgleucovorin 1,000 mg in dextrose 300 mL IVPB No medications scheduled. Past Plans No past plan information found. Radiation Treatments * No radiation treatments are documented for this patient in [facility]. Treatments may have been administered in another system.
--- OUTSIDE RECORDS SUMMARY | 2024-08-10 06:39 | XMS_ITS | Encounter Summary ---
Author Organization [facility] [place] [address] Care Team Providers Care Grain Picker Name Role Phone Leonor Kirk MD Primary Care Provider [phone] Reason for Visit * Reason Onset Date Comments Prior Auth 07/20/2024 Metoprol Tartrat e 50 MG Tablets Encounter Details Date Type Department Care Team (Late st Contact Info) Description 07/20/2024 Telephone Adult Medicine [facility] [place] [address] [place] [phone] Leonor iKrk MD [address] [place] [address] Prior Auth (Metoprol Tartrate 50 MG Tablets) Social History Tobacco Use Types Packs/Day Years [...] care for your loved ones. For example, childcare worker or elderly care for an older adult? [...] Progress Notes * Noemy Zavaleta MA - 07/23/2024 1:01 PM EST This is a duplicate request. See original encounter * Cynthia Candelaria - 07/20/2024 2:44 PM EST Keycode [id number] Patient Last Name Laury 1960 Metoprol Tartrate 50 MG Tablets documented in this encounter Plan of Treatment Upcoming Encounters Date Type Department Care Team (Late st Contact Info) Description 08/17/2024 9:00 AM EDT Appointment [facility] [address] [phone] 08/17/2024 9:30 AM EDT Appointment [facility] CT Scan [address] [place] [phone] 08/18/2024 9:00 AM EDT Appointment [address] [phone] 08/25/2024 9:00 AM EDT Office Visit [facility] Hematology Oncology [address] [place] [address] Brielle Walsh, [address] [place] [address] documented as of this encounter Visit Diagnoses Not on filedocumented in this encounter Additional Health Concerns Assessment Noted Time PHQ-9 Depression Total Score: 0 04/23/20 24 5:25 PM EST documented as of this encounter Care Teams Grain Picker Relationship Specialty Start Date End Date Leonor Kirk MD [address] [place] [address] PCP - General 10/01/1997 documented as of this encounter
--- OUTSIDE RECORDS SUMMARY | 2024-08-10 06:39 | XMS_ITS | Clinical Summary ---
Author Organization [facility] Address [address] [place] [address] Phone Care Team Providers Care Produce Team Lead Name Role Phone Leonor Kirk MD Primary Care Provider [phone] Allergies No known active allergies Medications acetaminophen (TYLENOL 8 HOUR) 650 mg 8 hr tablet Take 1 tablet (650 mg total) by mouth every 8 (eight) hours if needed. Active albuterol HFA (PROAIR HFA ; PROVENTIL HFA ; VENTOLIN HFA) 90 mcg/actuation inhaler Inhale 2 puffs by mouth. 12/22/19 24 Active cholecalciferol (VITAMIN D-3) 25 mcg (1,000 unit) tablet Take 1 tablet (1,000 Units total) by mouth 2 (two) times a day. 12/22/19 24 Active apixaban (Eliquis) 5 mg tablet Take 1 tablet (5 mg total) by mouth 2 (two) times a day. 10/27/19 24 Active ferrous sulfate 325 mg (65 mg elemental iron) tablet Take 1 tablet (325 mg total) by mouth 2 (two) times a day. 12/22/19 24 Active gabapentin (NEURONTIN) 600 mg tablet Take 1 tablet (600 mg total) by mouth 3 (three) times a day. Active magnesium oxide (MAG-OX) 400 mg (241.3 elemental magnesium) tablet Take 1 tablet (400 mg total) by mouth 3 (three) times a day. 10/16/19 23 Active mometasone (Asmanex Twisthaler) 220 mcg/ actuation (120) aerosol powdr breath activated inhaler Inhale 1 puff by mouth. 08/11/19 24 Active ondansetron (ZOFRAN) 4 mg tablet Take 1 tablet (4 mg total) by mouth every 8 (eight) hours if needed. Active Magic Mouthwash 1:1:1 (diphenhydrAMIN E-lidocaine 2% viscous-aluminu m-magnesium hydroxide-simet hicone) suspension (compound) 10 mL every 30 minutes as needed. 01/24/20 23 Active cetirizine (ZyrTEC) 10 mg tablet Take 1 tablet (10 mg total) by mouth 2 (two) times a day if needed. 12/16/19 24 Active fluticasone HFA (Flovent HFA) 110 mcg/actuation inhaler INHALE 1 PUFF INTO THE LUNGS 2 TIMES DAILY 02/15/20 23 Active lidocaine-prilo amy (EMLA) 2.5-2.5 % cream Apply topically. 01/28/20 24 Active prochlorperazin e (COMPAZINE) 10 mg tablet Take 1 tablet (10 mg total) by mouth every 6 hours as needed. 01/18/20 23 Active topiramate (TOPAMAX) 50 mg tablet Take 1 tablet (50 mg total) by mouth 2 (two) times a day. 08/14/19 24 Active atorvastatin (LIPITOR) 40 mg tablet Take 1 tablet (40 mg total) by mouth 1 (one) time each day. 90 tablet 1 04/13/20 24 Active mirtazapine (REMERON) 15 mg tablet Take 1 tablet (15 mg total) by mouth at bedtime. 90 tablet 1 04/13/20 24 Active traZODone (DESYREL) 50 mg tablet Take 1 tablet (50 mg total) by mouth at bedtime. 90 tablet 1 04/13/20 24 Active Asmanex Twisthaler 220 mcg/ actuation (30) aerosol powdr breath activated inhaler INHALE 1 PUFF INTO LUNGS ONCE DAILY 1 each 4 05/13/20 24 Active cefuroxime (CEFTIN) 500 mg tablet Take 1 tablet (500 mg total) by mouth 2 (two) times a day. 05/24/20 24 Active furosemide (LASIX) 20 mg tablet Take 1 tablet (20 mg total) by mouth 1 (one) time each day if needed (leg swelling after chemotherapy. ). 30 tablet 5 05/25/20 24 025 Active cranberry 500 mg capsule Take 500 mg by mouth 1 (one) time each day. Active d-mannose 500 mg capsule Take 2,000 mg by mouth 1 (one) time each day. Active LORazepam (ATIVAN) 0.5 mg tablet Take 1 tablet (0.5 mg total) by mouth at bedtime as needed for anxiety. Max Daily Amount: 0.5 mg 60 tablet 06/03/20 24 Active cyclobenzaprine (FLEXERIL) 10 mg tablet TAKE 1 TABLET BY MOUTH 2 TIMES DAILY NEEDED FOR MUSCLE SPASMS. 180 tablet 06/25/19 25 Active metoprolol tartrate (LOPRESSOR) 50 mg tablet TAKE 1 TABLET BY MOUTH TWICE A DAY 180 tablet 07/12/19 25 Active diclofenac (VOLTAREN) 1 % topical gel APPLY 2 TO 4 GRAMS TOPICALLY 4 TIMES A NEEDED FOR SHOULDER/KNEE PAIN FOR UP TO 30 DAYS 120 g 2 07/16/19 25 Active omeprazole (PriLOSEC) [address] capsule Take 1 capsule (20 mg total) by mouth 2 (two) times a day. 60 each 5 07/22/19 25 025 Active betamethasone dipropionate (DIPROSONE) 0.05 % ointment Apply topically 2 (two) times a day if needed for irritation or rash. 30 g 07/30/19 25 026 Active metoprolol tartrate (LOPRESSOR) 50 mg tablet Take 1 tablet (50 mg total) by mouth 2 (two) times a day. 90 tablet 1 04/13/20 24 025 Discontinued omeprazole (PriLOSEC) [address] capsule Take 1 capsule (20 mg total) by mouth 2 (two) times a day. 90 capsule 1 04/26/20 24 025 Discontinued diclofenac (VOLTAREN) 1 % topical gel APPLY 2 TO 4 GRAMS TOPICALLY 4 TIMES A NEEDED FOR SHOULDER/KNEE PAIN FOR OUP TO 30 DAYS 100 g 1 05/17/20 24 025 Discontinued betamethasone dipropionate (DIPROSONE) 0.05 % ointment Apply topically 2 (two) times a day if needed for irritation or rash. 30 g 07/05/19 25 025 Discontinued(R eorder) oxyCODONE-aceta minophen (PERCOCET) 5-325 mg per tabletIndicatio ns:Contusion of right knee, initial encounter Take 1 tablet by mouth every 6 (six) hours if needed for severe pain for up to 3 days. Max Daily Amount: 4 tablets 12 tablet 07/28/19 25 025 Active Problems Problem Noted Date Diagnosed Date Hypomagnesemia 02/19/2023 Primary osteoarthritis of left hip 01/27/2023 Primary osteoarthritis of right hip 01/27/2023 Anemia 01/24/2023 Myelitis 01/24/2023 Lower extremity weakness 01/24/2023 A-fib 01/14/2023 Overview (02/20/2024): Last Assessment & Plan: The patient was noted to have atrial fibrillation RVR during a recent hospitalization in September 2022. He recently underwent a 30-day ambulatory environmental monitoring technician in February 2023 which showed sinus [...] anticoagulation given these results. He has a [id number] score of 1 and continues on anticoagulation [...] side effect, pt prefers continued PPI use Encounters Date Type Department Care Team Description 08/06/2024 10:45 AM EST - 08/06/2024 11:59 PM EST Hospital Encounter [facility] [address] [place] [phone] Brielle Walsh DO Esophageal cancer, stage IV (CMS/HCC) (Primary Dx) Discharge Disposition: Home or Self Care 08/04/2024 9:00 AM EST - 08/04/2024 11:59 PM EST Hospital Encounter [facility] [address] [place] [phone] Brielle Walsh DO Esophageal carcinoma (CMS/HCC) (Primary Dx); Esophageal cancer, stage IV (CMS/HCC) Discharge Disposition: Home or Self Care 07/28/2024 8:33 AM EST - 07/28/2024 10:51 AM EST Emergency [facility] [address] [place] [phone] Farhad Benitez MD Fall, initial encounter (Primary Dx); Contusion of right knee, initial encounter Discharge Disposition: Home or Self Care 07/27/2024 11:00 AM EST Office Visit [facility] [address] [place] [phone] Mona Menjivar PA Esophageal cancer, stage IV (CMS/HCC) (Primary Dx); Anemia due to antineoplastic chemotherapy; Hypomagnesemia; Weakness of both lower extremities; History of pulmonary embolism 07/20/2024 Telephone Adult Medicine [address] [phone] Leonor Kirk MD Prior Auth (Metoprol Tartrate 50 MG Tablets) 07/16/2024 11:00 AM EST - 07/16/2024 11:59 PM EST Hospital Encounter [address] [phone] Brielle Walsh DO Esophageal cancer, stage IV (CMS/HCC) (Primary Dx) Discharge Disposition: Home or Self Care 07/14/2024 9:00 AM EST - 07/14/2024 11:59 PM EST Hospital Encounter [address] [phone] Brielle Walsh DO Esophageal cancer, stage IV (CMS/HCC) (Primary Dx) Discharge Disposition: Home or Self Care 07/14/2024 Telephone Adult [address] [phone] Leonor Kirk MD prior auth for meds 07/01/2024 11:30 AM EST - 07/01/2024 11:59 PM EST Hospital Encounter [address] [phone] Brielle Walsh DO Esophageal cancer, stage IV (CMS/HCC) (Primary Dx) Discharge Disposition: Home or Self Care 06/29/2024 9:00 AM EST - 06/29/2024 11:59 PM EST Hospital Encounter [address] [phone] Brielle Walsh DO Esophageal cancer, stage IV (CMS/HCC) (Primary Dx) Discharge Disposition: Home or Self Care 06/22/2024 10:45 AM EST Office Visit [facility] [address] [place] [phone] Brielle Walsh DO Esophageal cancer, stage IV (CMS/HCC) (Primary Dx); Anemia due to antineoplastic chemotherapy; Weakness of both lower extremities; Hypomagnesemia 06/17/2024 12:00 PM EST - 06/17/2024 11:59 PM EST Hospital Encounter [facility] [address] [place] [phone] Brielle Walsh DO Esophageal cancer, stage IV (CMS/HCC) (Primary Dx) Discharge Disposition: Home or Self Care 06/16/[address] [phone] Leonor Kirk MD Provider Call Back 06/15/2024 9:28 AM EST - 06/15/2024 11:59 PM EST Hospital Encounter [address] [phone] Brielle Walsh DO Esophageal cancer, stage IV (CMS/HCC) (Primary Dx) Discharge Disposition: Home or Self Care 06/10/2024 Lab Requisition [facility] [address] [facility] [place] [phone] Any Peralta MD Elevated prostate specific antigen (PSA) 06/03/2024 11:26 AM EST - 06/03/2024 11:59 PM EST Hospital Encounter [facility] [address] [place] [phone] Esophageal cancer, stage IV (CMS/HCC) (Primary Dx) Discharge Disposition: Home or Self Care 06/01/2024 9:15 AM EST - 06/01/2024 11:59 PM EST Hospital Encounter [facility] [address] [place] [phone] Esophageal cancer, stage IV (CMS/HCC) (Primary Dx) Discharge Disposition: Home or Self Care 05/25/2024 11:00 AM EST Office Visit [facility] [address] [place] [phone] Brielle Walsh DO Esophageal cancer, stage IV (CMS/HCC) (Primary Dx); Anemia due to antineoplastic chemotherapy; Urinary tract infection without hematuria, site unspecified 05/19/2024 8:44 AM EST - 05/19/2024 11:59 PM EST Hospital Encounter [facility] CT Scan [address] [place] [phone] Esophageal cancer, stage IV (CMS/HCC) Discharge Disposition: Home or Self Care 05/14/2024 11:56 AM EST - 05/14/2024 11:59 PM EST Hospital Encounter [facility] [address] [place] [phone] Esophageal cancer, stage IV (CMS/HCC) (Primary Dx) Discharge Disposition: Home or Self Care 05/12/2024 9:00 AM EST - 05/12/2024 11:59 PM EST Hospital Encounter [facility] [address] [place] [phone] Esophageal cancer, stage IV (CMS/HCC) (Primary Dx); Hypomagnesemia; Esophageal carcinoma (CMS/HCC) Discharge Disposition: Home or Self Care from Last 3 Months Immunizations Name Administration Dates Next Due Influenza Quadravalent, MDCK , 0.5ml, preservative free (Flucelvax) 6mo and older 06/14/2022 Influenza Quadravalent, MDCK , 0.5ml, with preservative (Flucelvax) 6mo and older 03/10/2017 Influenza trivalent, MDCK, 0 .5mL, preservative free (Flucelvax) 6mo and older 02/28/2024 Influenza trivalent, with pr eservative (Fluzone; Afluria) 6mo and older 02/12/2012 Tdap Tetanus diptheria acell ular pertussis (Boostrix; Adacel) 7yo and older 04/10/2022,09/20/2011 Zoster recombinant (Shingrix) 19yo and older Surgical History Surgery Date Site/Laterality Comments HERNIA REPAIR PROCEDURE:HERNIA REPAIR COLONOSCOPY 01/18/2013 PROCEDURE: HISTORICAL COLONOSCOPY; COMMENT: adenoma; repeat in 5 yrs HERNIA REPAIR 09/24/2021 PROCEDURE: HISTORICAL HERNIA REPAIR/UMB; COMMENT: Incarcerated umbilical hernia with mesh OTHER SURGICAL HISTORY 07/09/2022 PROCEDURE: HISTORY OTHER; COMMENT: laparoscopic gastrostomy tube placement Medical History Medical History Date Comments Hypertension DX:Hypertension Obesity, unspecified 04/28/2006 DX:Obesity, unspecified Other lymphedema 04/28/2006 DX:Other lymphe casa Pure hypercholesterolemia 04/28/2006 DX:Pur e hypercholesterolemia ETOH abuse DX:ETOH abuse Umbilical hernia 09/07/2008 DX:Umbilical he rnia; COMMENT: See note, pt declined surgery 10/29/12 Esophageal reflux 01/24/2006 DX:Esophageal reflux; COMMENT: Discussed side effect, pt prefers continued PPI use Family History Medical History Relation Name Comments Heart attack Father sudden at age 44 Hypertension Mother Relation Name Status Comments Father Mother Social History Tobacco Use Types Packs/Day Years [...] for your loved ones. For example, child monitor or elderly care for an older adult? [...] Orientation Straight 04/20/2024 1: 50 PM EST Obstetrics History Last Filed Vital Signs Vital Sign Reading [...] Mass Index 52.31 07/28/2024 8:43 AM EST Plan of Treatment Upcoming Encounters Date Type Department Care Team (Late st Contact Info) Description 08/17/2024 9:00 AM EDT Appointment [facility] [address] [phone] 08/17/2024 9:30 AM EDT Appointment [facility] Scan [address] [place] [phone] 08/18/2024 9:00 AM EDT Appointment [facility] [address] [phone] 08/25/2024 9:00 AM EDT Office Visit [facility] [address] [place] [phone] Brielle Walsh DO [address] [place] [address] Health Maintenance Due Date Last Done Comments Pneumococcal Vaccine: 50+ Years (1 of 2 - PCV) 1980 RSV Immunization Patients 60+ Years Old (1 - Risk 60-74 years 1-dose series) 2021 Zoster Vaccines (2 of 2) 04/24/2024 02/28/2024 Depression Screening 04/23/2025 04/23/2024, 10/12/2023, 10/12/2023 Social Influencers of Health Screening 04/23/2025 04/23/2024, 08/19/2023 Hypertension/CHF/CAD Annual BMP Blood Test 08/04/2025 08/04/2024, 07/27/2024, 07/14/2024, Additional history exists Colorectal Cancer Screening: Colonoscopy 12/29/2025 12/29/2020, 12/29/2020 Cholesterol Screening (Lipid Panel) 01/29/2029 01/30/2024, 01/30/2024 DTaP,Tdap,and Td Vaccines (3 - Td or Tdap) 04/10/2032 04/10/2022, 09/20/2011 COVID-19 Vaccine Discontinued 07/02/2021, , 10/22/2020 Hepatitis C Screening Completed 01/23/2024, 014 Influenza Vaccine Completed 02/28/2024, , 03/10/2017, Additional history exists HIB Vaccines Aged Out No longer eligi ble based on patient's age to complete this topic HIV Screening Discontinued HPV Vaccines Aged Out No longer eligi ble based on patient's age to complete this topic Hepatitis A Vaccines Discontinued Hepatitis B Vaccines Aged Out No long er eligible based on patient's age to complete this topic IPV Vaccines Aged Out No longer eligi ble based on patient's age to complete this topic MMR Vaccines Aged Out No longer eligi ble based on patient's age to complete this topic Meningococcal ACWY Vaccine Aged Out N o longer eligible based on patient's age to complete this topic Meningococcal B Vacine Aged Out No lo nger eligible based on patient's age to complete this topic Pneumococcal Vaccine: Pediatrics (0 to 5 Years) and At-Risk Patients (6 to 64 Years) Discontinued RSV Immunization Patients Under 20 months Aged Out No longer eligible based on patient's age to complete this topic Varicella Vaccines Aged Out No longer eligible based on patient's age to complete this topic Procedures Procedure Name Priority Date/Time Associated Diagnosis Comments MAGNESIUM STAT 08/04/2024 9:27 AM EST Esophageal cancer, stage IV (CMS/HCC) CBC WITH AUTO DIFFERENTIAL Routine 08/04/2024 9:27 AM EST Esophageal carcinoma (CMS/HCC) COMPREHENSIVE METABOLIC PANEL Routine 08/04/2024 9:27 AM EST Esophageal carcinoma (CMS/HCC) CBC AND DIFFERENTIAL Routine 08/04/2024 9:27 AM EST Esophageal carcinoma (CMS/HCC) XR KNEE 4+ VIEWS BILAT STAT 5 9:31 AM EST CBC WITH AUTO DIFFERENTIAL Routine 07/27/2024 11:44 AM EST Esophageal cancer, stage IV (CMS/HCC) MAGNESIUM Routine 07/27/2024 11:44 AM EST Esophageal cancer, stage IV (CMS/HCC) COMPREHENSIVE METABOLIC PANEL Routine 07/27/2024 11:44 AM EST Esophageal cancer, stage IV (CMS/HCC) CBC AND DIFFERENTIAL Routine 07/27/2024 11:44 AM EST Esophageal cancer, stage IV (CMS/HCC) CBC WITH AUTO DIFFERENTIAL STAT 07/14/2024 9:18 AM EST Esophageal cancer, stage IV (CMS/HCC) COMPREHENSIVE METABOLIC PANEL STAT 07/14/2024 9:18 AM EST Esophageal cancer, stage IV (CMS/HCC) CBC AND DIFFERENTIAL STAT 07/14/2024 9:18 AM EST Esophageal cancer, stage IV (CMS/HCC) MAGNESIUM STAT 07/14/2024 9:18 AM EST Esophageal cancer, stage IV (CMS/HCC) CBC WITH AUTO DIFFERENTIAL STAT 06/29/2024 9:41 AM EST Esophageal cancer, stage IV (CMS/HCC) COMPREHENSIVE METABOLIC PANEL STAT 06/29/2024 9:41 AM EST Esophageal cancer, stage IV (CMS/HCC) CBC AND DIFFERENTIAL STAT 06/29/2024 9:41 AM EST Esophageal cancer, stage IV (CMS/HCC) MAGNESIUM STAT 06/29/2024 9:41 AM EST Esophageal cancer, stage IV (CMS/HCC) CBC WITH AUTO DIFFERENTIAL STAT 06/15/2024 9:42 AM EST Esophageal cancer, stage IV (CMS/HCC) COMPREHENSIVE METABOLIC PANEL STAT 06/15/2024 9:42 AM EST Esophageal cancer, stage IV (CMS/HCC) CBC AND DIFFERENTIAL STAT 06/15/2024 9:42 AM EST Esophageal cancer, stage IV (CMS/HCC) MAGNESIUM STAT 06/15/2024 9:42 AM EST Esophageal cancer, stage IV (CMS/HCC) PROSTATE SPECIFIC ANTIGEN DIAGNOSTIC Routine 06/10/2024 11:10 AM EST Elevated prostate specific antigen (PSA) CBC WITH AUTO DIFFERENTIAL Routine 05/31/2024 10:36 AM EST Esophageal cancer, stage IV (CMS/HCC) COMPREHENSIVE METABOLIC PANEL Routine 05/31/2024 10:36 AM EST Esophageal cancer, stage IV (CMS/HCC) CBC AND DIFFERENTIAL Routine 05/31/2024 10:36 AM EST Esophageal cancer, stage IV (CMS/HCC) MAGNESIUM Routine 05/31/2024 10:36 AM EST Esophageal cancer, stage IV (CMS/HCC) CT CHEST/ABDOMEN/PELVIS W CONTRAST Routine 05/19/2024 8:55 AM EST Esophageal cancer, stage IV (CMS/HCC) CBC WITH AUTO DIFFERENTIAL STAT 05/12/2024 9:35 AM EST Esophageal cancer, stage IV (CMS/HCC) COMPREHENSIVE METABOLIC PANEL STAT 05/12/2024 9:35 AM EST Esophageal cancer, stage IV (CMS/HCC) CBC AND DIFFERENTIAL STAT 05/12/2024 9:35 AM EST Esophageal cancer, stage IV (CMS/HCC) MAGNESIUM STAT 05/12/2024 9:35 AM EST Esophageal cancer, stage IV (CMS/HCC) LIPID PANEL Routine 01/30/2024 HEPATITIS C SCREENING Routine 01/23/2024 DEPRESSION SCREENING Routine 10/12/2023 COLONOSCOPY Routine 12/29/2020 from Last 3 Months or Most Recently Relevant to Health Maintenance Results * (ABNORMAL) CBC auto differential (08/04/2024 9:27 AM EST) Only the most recent of7 resultswithin the time period is included. WBC 6.7 4.8 - 10.8 K/mcL LAB HEMETOLOGY METHOD 08/04/2024 9:58 AM [facility] RBC 3.20(L) 4.50 - 5.50 M/mcL LAB HEMETOLOGY METHOD 08/04/2024 9:58 AM [facility] Hemoglobin 10.7(L) 13.5 - 17.5 g/dL LAB HEMETOLOGY METHOD 08/04/2024 9:58 AM [facility] Hematocrit 33.3(L) 42.0 - 54.0 % LAB HEMETOLOGY METHOD 08/04/2024 9:58 AM [facility] MCV 104.1(H) 79.0 - 98.0 FL LAB HEMETOLOGY METHOD 08/04/2024 9:58 AM [facility] MCH 33.4(H) 27.0 - 32.0 pcg LAB HEMETOLOGY METHOD 08/04/2024 9:58 AM [facility] MCHC 32.1 32.0 - 37.0 g/dL LAB HEMETOLOGY METHOD 08/04/2024 9:58 AM [facility] RDW 14.1 11.0 - 15.0 % LAB HEMETOLOGY METHOD 08/04/2024 9:58 AM [facility] Platelets 221 130 - 400 K/mcL LAB HEMETOLOGY METHOD 08/04/2024 9:58 AM [facility] MPV 9.5 7.0 - 11.0 FL LAB HEMETOLOGY METHOD 08/04/2024 9:58 AM [facility] NRBC 0.3 <1.0 % LAB HEMETOLOGY METHOD 08/04/2024 9:58 AM [facility] NRBC Absolute 0.02 <0.10 K/mcL LAB HEMETOLOGY METHOD 08/04/2024 9:58 AM [facility] Neutrophils Relative 70.8 % LAB HEMETOLOGY METHOD 08/04/2024 9:58 AM [facility] Lymphocytes Relative 10.7 % LAB HEMETOLOGY METHOD 08/04/2024 9:58 AM [facility] Monocytes Relative 10.0 % LAB HEMETOLOGY METHOD 08/04/2024 9:58 AM [facility] Eosinophils Relative 7.0 % LAB HEMETOLOGY METHOD 08/04/2024 9:58 AM [facility] Basophils Relative 0.6 % LAB HEMETOLOGY METHOD 08/04/2024 9:58 AM [facility] Immature Granulocytes Relative 0.9 % LAB HEMETOLOGY METHOD 08/04/2024 9:58 AM [facility] Neutrophils Absolute 4.76 1.50 - 7.00 K/mcL LAB HEMETOLOGY METHOD 08/04/2024 9:58 AM [facility] Lymphocytes Absolute 0.72(L) 1.00 - 5.00 K/mcL LAB HEMETOLOGY METHOD 08/04/2024 9:58 AM [facility] Monocytes Absolute 0.67 0.20 - 1.00 K/mcL LAB HEMETOLOGY METHOD 08/04/2024 9:58 AM [facility] Eosinophils Absolute 0.47 0.00 - 0.50 K/mcL LAB HEMETOLOGY METHOD 08/04/2024 9:58 AM [facility] Basophils Absolute 0.04 0.00 - 0.20 K/mcL LAB HEMETOLOGY METHOD 08/04/2024 9:58 AM [facility] Immature Granulocytes Absolute 0.06(H) 0.00 - 0.03 K/mcL LAB HEMETOLOGY METHOD 08/04/2024 9:58 AM [facility] Blood Venous blood specimen / Unknown Venipuncture / Unknown 08/04/2024 9:27 AM EST 08/04/2024 9:44 AM EST Brielle Barrerasotero Walsh DO LAB BLOOD ORDERABLES Final Result Performing Organization Address [facility]/ZIP Co de Phone Number [facility] [address] [place] [address], [place] [phone] * Magnesium (08/04/2024 9:27 AM EST) Only the most recent of7 resultswithin the time period is included. [facility] Magnesium 2.0 1.9 - 2.6 mg/dL LAB CHEMISTRY METHOD 08/04/2024 11:34 AM [facility] Blood Venous blood specimen / Unknown Venipuncture / Unknown 08/04/2024 9:27 AM EST 08/04/2024 9:44 AM EST Brielle Neva Walsh DO LAB BLOOD ORDERABLES Final Result Performing Organization Address [facility] de Phone Number [facility] [address] [place] [address], [place] [phone] * (ABNORMAL) Comprehensive metabolic panel (08/04/2024 9:27 AM EST) Only the most recent of7 resultswithin the time period is included. [facility] Sodium 141 133 - 145 mmol/L LAB CHEMISTRY METHOD 08/04/2024 10:18 AM [facility] Potassium 3.9 3.5 - 5.5 mmol/L LAB CHEMISTRY METHOD 08/04/2024 10:18 AM [facility] Chloride 107 96 - 110 mmol/L LAB CHEMISTRY METHOD 08/04/2024 10:18 AM [facility] CO2 26 21 - 32 mmol/L LAB CHEMISTRY METHOD 08/04/2024 10:18 AM [facility] Anion Gap 8 3 - 11 LAB CHEMISTRY METHOD 08/04/2024 10:18 AM [facility] Glucose 165(H) 70 - 100 mg/dL LAB CHEMISTRY METHOD 08/04/2024 10:18 AM [facility] BUN 12 5 - 25 mg/dL LAB CHEMISTRY METHOD 08/04/2024 10:18 AM [facility] Creatinine 1.12 0.70 - 1.30 mg/dL LAB CHEMISTRY METHOD 08/04/2024 10:18 AM [facility] eGFR 74 >=60 mL/min/1. 73m2 LAB CHEMISTRY METHOD 08/04/2024 10:18 AM [facility] Comment:Calculation based on the??Chronic Kidney Disease Epidemiology Collaboration (CKD-EPI) equation refit??without adjustment for race. BUN/Creatinine Ratio 10.7 LAB CHEMISTRY METHOD 08/04/2024 10:18 AM [facility] Calcium 9.1 8.5 - 10.5 mg/dL LAB CHEMISTRY METHOD 08/04/2024 10:18 AM [facility] AST (SGOT) 18 10 - 42 unit/L LAB CHEMISTRY METHOD 08/04/2024 10:18 AM [facility] ALT (SGPT) 28 10 - 60 unit/L LAB CHEMISTRY METHOD 08/04/2024 10:18 AM [facility] Alkaline Phosphatase 184(H) 42 - 121 unit/L LAB CHEMISTRY METHOD 08/04/2024 10:18 AM [facility] Total Protein 6.3 6.0 - 8.0 g/dL LAB CHEMISTRY METHOD 08/04/2024 10:18 AM [facility] Albumin 3.4 3.2 - 5.0 g/dL LAB CHEMISTRY METHOD 08/04/2024 10:18 AM [facility] Total Bilirubin 0.4 0.0 - 1.4 mg/dL LAB CHEMISTRY METHOD 08/04/2024 10:18 AM [facility] Blood Venous blood specimen / Unknown Venipuncture / Unknown 08/04/2024 9:27 AM EST 08/04/2024 9:44 AM EST us Brielle Websteruliffe DO LAB BLOOD ORDERABLES Final Result [facility] [address] [place] [address], [place] [phone] * XR Knee 4+ Views bilat (07/28/2024 9:31 AM EST) Anatomical Region Laterality Modality Lower Extremities, Knee Bilateral Radiogra phic Imaging 07/28/2024 9:43 AM EST Impressions 07/28/2024 9:46 AM EST Degenerative changes of the right knee. ??No acute findings. -------- FINAL REPORT -------- Dictated By: Liban Maddox Dictated Date: 07/28/2024 09:43 ET Assigned Physician: Liban Maddox Reviewed and Electronically Signed By: Liban Maddox Signed Date: 07/28/2024 09:46 ET Workstation ID: [id number] Transcribed By: Self Edit Transcribed Date: 07/28/2024 [...] Signed Date: 07/28/2024 09:46 ET Workstation ID: [id number] Transcribed By: Self Edit Transcribed Date: 07/28/2024 09:43 ET Farhad Benitez MD IMG XR PROCEDURES Final Result * Prostate specific antigen diagnostic (06/10/2024 11:10 AM EST) PSA 0.75 0.00 - 4.00 ng/mL LAB CHEMISTRY METHOD 06/10/2024 2:52 PM EST [facility] Blood Venous blood specimen / Unknown 06/10/2024 11:10 AM EST 06/10/2024 2:19 PM EST Narrative [facility] - 06/10/2024 2:52 PM EST The Siemens Advia Centaur Chemiluminescent Immunoassay is used. Results obtained with different assay methods or kits cannot be used interchangeably. Results cannot be interpreted as absolute evidence of the presence or absence of malignant disease. Any Peralta MD LAB BLOOD ORDERABLES Fin al Result [facility] [address] [place] [address], * CT Chest/Abdomen/Pelvis w Contrast (05/19/2024 8:55 AM EST) Anatomical Region Laterality Modality Body Computed Tomogra phy 05/19/2024 3:17 PM EST Impressions 05/19/2024 3:39 PM EST No metastatic lesions or abnormal lymphadenopathy identified. -------- FINAL REPORT -------- Dictated By: Prince Simental Dictated Date: 05/19/2024 15:17 ET Assigned Physician: Prince Simental Reviewed and Electronically Signed By: Prince Simental Signed Date: 05/19/2024 15:39 ET Workstation ID: [id number] Transcribed By: Self Edit Transcribed Date: 05/19/2024 15:21 ET Narrative 05/19/2024 3:39 PM EST PROCEDURE: CT chest, abdomen and pelvis of IV contrast. INDICATION: Esophageal cancer. TECHNIQUE: Chest, abdomen and pelvis CT following the intravenous administration of 90cc ISOVUE. Multiplanar reformats were created and interpreted. The examination was performed utilizing dose reduction techniques. DOSE: CTDIvol: 39.4mGy. ??Total exam DLP: 2909.9mGy-cm COMPARISON: ??CT angiogram of the chest April 2024. ??CT chest, abdomen and pelvis February 2024. FINDINGS: ?? CT CHEST: LUNGS/PLEURA: Minimal linear atelectasis. ??No consolidation or effusion. VASCULAR: Appears normal. ??No aneurysm. MEDIASTINUM: No mediastinal or hilar lymphadenopathy. Heart is normal in size. No pericardial effusion. CHEST WALL: No significant axillary lymphadenopathy. BONES: Degenerative changes in the spine. CT ABDOMEN AND PELVIS: HEPATOBILIARY: Liver appears normal. No biliary dilatation. SPLEEN: Spleen appears normal PANCREAS: No focal mass or ductal dilatation. ADRENALS: Appear normal without nodules KIDNEYS/URETERS: No hydronephrosis, stones, or mass. PELVIC ORGANS/BLADDER: Bladder appears normal. RETROPERITONEUM: Small, nonspecific retroperitoneal lymph nodes are noted that appear similar to previous exam. VESSELS: Atherosclerotic disease of the aorta without aneurysm. BOWEL: Bowel appears within normal limits. ??Appendix appears normal. MESENTERY: Appears normal. No ascites. BONES AND SOFT TISSUES: Mild degenerative changes are noted throughout the spine. ??Degenerative changes are noted in both hips. ??No osseous lesion identified. Procedure Note Prince Simental MD - 05/19/2024 PROCEDURE: CT chest, abdomen and pelvis of IV contrast. INDICATION: Esophageal cancer. TECHNIQUE: Chest, abdomen and pelvis CT following the intravenousadministration of 90cc ISOVUE. Multiplanar reformats were created andinterpreted. The examination was performed utilizing dose reductiontechniques. DOSE: CTDIvol: 39.4mGy. Total exam DLP: 2909.9mGy-cm COMPARISON: CT angiogram of the chest April 2024. CT chest, abdomenand pelvis February 2024. FINDINGS: CT CHEST: LUNGS/PLEURA: Minimal linear atelectasis. No consolidation or effusion. VASCULAR: Appears normal. No aneurysm. MEDIASTINUM: No mediastinal or hilar lymphadenopathy. Heart is normal insize. No pericardial effusion. CHEST WALL: No significant axillary lymphadenopathy. BONES: Degenerative changes in the spine. CT ABDOMEN AND PELVIS: HEPATOBILIARY: Liver appears normal. No biliary dilatation. SPLEEN: Spleen appears normal PANCREAS: No focal mass or ductal dilatation. ADRENALS: Appear normal without nodules KIDNEYS/URETERS: No hydronephrosis, stones, or mass. PELVIC ORGANS/BLADDER: Bladder appears normal. RETROPERITONEUM: Small, nonspecific retroperitoneal lymph nodes are notedthat appear similar to previous exam. VESSELS: Atherosclerotic disease of the aorta without aneurysm. BOWEL: Bowel appears within normal limits. Appendix appears normal. MESENTERY: Appears normal. No ascites. BONES AND SOFT TISSUES: Mild degenerative changes are noted throughout thespine. Degenerative changes are noted in both hips. No osseous lesionidentified. IMPRESSION: No metastatic lesions or abnormal lymphadenopathy identified. -------- FINAL REPORT -------- Dictated By: Prince Simental Dictated Date: 05/19/2024 15:17 ET Assigned Physician: Prince Simental Reviewed and Electronically Signed By: Prince Simental Signed Date: 05/19/2024 15:39 ET Workstation ID: [id number] Transcribed By: Self Edit Transcribed Date: 05/19/2024 15:21 ET Brielle Walsh DO IMG CT PROCEDURES Fin al Result * Lipid panel (01/30/2024) LDL/HDL Ratio 3 0 - 4 Triglycerides 142 0 - 150 mg/dL Cholesterol 122 0 - 200 mg/dL HDL 45 >=40 mg/dL LDL Cholesterol 49 0 - 100 mg/dL Blood Venous blood specimen / Unknown Historical Provider LAB BLOOD ORDERABLES [place] l Result * Hepatitis C Screening (01/23/2024) Hepatitis C Screening abstracted Historical Provider HEALTH MAINTENANCE Final Result * Depression Screening (10/12/2023) Depression Screening abstracted Historical Provider HEALTH MAINTENANCE Final Result * Colonoscopy (12/29/2020) Colonoscopy No interpreta tion,abstr acted Anatomical Region Laterality Modality Other Historical Provider HEALTH MAINTENANCE Final Result from Last 3 Months or Most Recently Relevant to Health Maintenance Insurance [facility] Advance Directives Documents on File Type Date Recorded Patient Rework Machine Operator Expl anation Health Care Decision (hx) 08/09/2022 HE ALTH CARE PROXY Health Care Decision (hx) 08/09/2022 HE ALTH CARE PROXY Health Care Decision (hx) 08/09/2022 HE ALTH CARE PROXY Health Care Decision (hx) 08/09/2022 HE ALTH CARE PROXY Health Care Decision (hx) 08/09/2022 HE ALTH CARE PROXY Health Care Decision (hx) 08/09/2022 HE ALTH CARE PROXY Health Care Decision (hx) 08/09/2022 HE ALTH CARE PROXY Health Care Decision (hx) 08/09/2022 HE ALTH CARE PROXY Health Care Decision (hx) 08/09/2022 HE ALTH CARE PROXY Health Care Decision (hx) 08/09/2022 HE ALTH CARE PROXY Health Care Decision (hx) 08/09/2022 HE ALTH CARE PROXY Health Care Decision (hx) 08/09/2022 HE ALTH CARE PROXY Health Care Decision (hx) 08/09/2022 HE ALTH CARE PROXY Health Care Decision (hx) 08/09/2022 HE ALTH CARE PROXY Health Care Decision (hx) 08/09/2022 HE ALTH CARE PROXY Health Care Decision (hx) 08/09/2022 HE ALTH CARE PROXY Health Care Decision (hx) 08/09/2022 HE ALTH CARE PROXY Health Care Decision (hx) 08/09/2022 HE ALTH CARE PROXY Health Care Decision (hx) 08/09/2022 HE ALTH CARE PROXY Health Care Decision (hx) 08/09/2022 HE ALTH CARE PROXY Health Care Decision (hx) 08/09/2022 HE ALTH CARE PROXY Health Care Decision (hx) 08/09/2022 HE ALTH CARE PROXY Health Care Decision (hx) 08/09/2022 HE ALTH CARE PROXY Health Care Decision (hx) 08/09/2022 HE ALTH CARE PROXY Health Care Decision (hx) 08/09/2022 HE ALTH CARE PROXY Health Care Decision (hx) 08/09/2022 HE ALTH CARE PROXY Health Care Decision (hx) 08/09/2022 HE ALTH CARE PROXY Health Care Decision (hx) 08/09/2022 HE ALTH CARE PROXY Health Care Decision (hx) 08/09/2022 HE ALTH CARE PROXY Health Care Decision (hx) 08/09/2022 HE ALTH CARE PROXY Health Care Decision (hx) 08/09/2022 HE ALTH CARE PROXY Health Care Decision (hx) 08/09/2022 HE ALTH CARE PROXY Health Care Decision (hx) 08/09/2022 HE ALTH CARE PROXY Health Care Decision (hx) 08/09/2022 HE ALTH CARE PROXY Health Care Decision (hx) 08/09/2022 HE ALTH CARE PROXY Health Care Decision (hx) 08/09/2022 HE ALTH CARE PROXY Health Care Decision (hx) 08/09/2022 HE ALTH CARE PROXY Health Care Decision (hx) 08/09/2022 HE ALTH CARE PROXY Health Care Decision (hx) 08/09/2022 HE ALTH CARE PROXY Health Care Decision (hx) 08/09/2022 HE ALTH CARE PROXY Health Care Decision (hx) 08/09/2022 HE ALTH CARE PROXY Health Care Decision (hx) 08/09/2022 HE ALTH CARE PROXY Health Care Decision (hx) 08/09/2022 HE ALTH CARE PROXY Health Care Decision (hx) 08/09/2022 HE ALTH CARE PROXY Health Care Decision (hx) 08/09/2022 HE ALTH CARE PROXY Health Care Decision (hx) 08/09/2022 HE ALTH CARE PROXY Health Care Decision (hx) 08/09/2022 HE ALTH CARE PROXY Health Care Decision (hx) 08/09/2022 HE ALTH CARE PROXY Health Care Decision (hx) 08/09/2022 HE ALTH CARE PROXY Health Care Decision (hx) 08/09/2022 HE ALTH CARE PROXY Health Care Decision (hx) 08/09/2022 HE ALTH CARE PROXY Health Care Decision (hx) 08/09/2022 HE ALTH CARE PROXY Health Care Decision (hx) 08/09/2022 HE ALTH CARE PROXY Health Care Decision (hx) 08/09/2022 HE ALTH CARE PROXY Health Care Decision (hx) 08/09/2022 HE ALTH CARE PROXY Health Care Decision (hx) 08/09/2022 HE ALTH CARE PROXY Health Care Decision (hx) 08/09/2022 HE ALTH CARE PROXY Health Care Decision (hx) 08/09/2022 HE ALTH CARE PROXY Health Care Decision (hx) 07/13/2022 AD QUINONEZ DIRECTIVE Health Care Decision (hx) 07/13/2022 AD QUINONEZ DIRECTIVE Health Care Decision (hx) 07/13/2022 AD QUINONEZ DIRECTIVE Health Care Decision (hx) 07/13/2022 AD QUINONEZ DIRECTIVE Health Care Decision (hx) 07/13/2022 AD QUINONEZ DIRECTIVE Health Care Decision (hx) 07/13/2022 AD QUINONEZ DIRECTIVE Health Care Decision (hx) 07/13/2022 AD QUINONEZ DIRECTIVE Health Care Decision (hx) 07/13/2022 AD QUINONEZ DIRECTIVE Health Care Decision (hx) 07/13/2022 AD QUINONEZ DIRECTIVE Health Care Decision (hx) 07/13/2022 AD QUINONEZ DIRECTIVE Health Care Decision (hx) 07/13/2022 AD QUINONEZ DIRECTIVE Health Care Decision (hx) 07/13/2022 AD QUINONEZ DIRECTIVE Health Care Decision (hx) 07/13/2022 AD QUINONEZ DIRECTIVE Health Care Decision (hx) 07/13/2022 AD QUINONEZ DIRECTIVE Health Care Decision (hx) 07/13/2022 AD QUINONEZ DIRECTIVE Health Care Decision (hx) 07/13/2022 AD QUINONEZ DIRECTIVE Health Care Decision (hx) 07/13/2022 AD QUINONEZ DIRECTIVE Health Care Decision (hx) 07/13/2022 AD QUINONEZ DIRECTIVE Health Care Decision (hx) 07/13/2022 AD QUINONEZ DIRECTIVE Health Care Decision (hx) 07/13/2022 AD QUINONEZ DIRECTIVE Health Care Decision (hx) 07/13/2022 AD QUINONEZ DIRECTIVE Health Care Decision (hx) 07/13/2022 AD QUINONEZ DIRECTIVE Health Care Decision (hx) 07/13/2022 AD QUINONEZ DIRECTIVE Health Care Decision (hx) 07/13/2022 AD QUINONEZ DIRECTIVE Health Care Decision (hx) 07/13/2022 AD QUINONEZ DIRECTIVE Health Care Decision (hx) 07/13/2022 AD QUINONEZ DIRECTIVE Health Care Decision (hx) 07/13/2022 AD QUINONEZ DIRECTIVE Health Care Decision (hx) 07/13/2022 AD QUINONEZ DIRECTIVE Health Care Decision (hx) 07/13/2022 AD QUINONEZ DIRECTIVE Health Care Decision (hx) 07/13/2022 AD QUINONEZ DIRECTIVE Health Care Decision (hx) 07/13/2022 AD QUINONEZ DIRECTIVE Health Care Decision (hx) 07/13/2022 AD QUINONEZ DIRECTIVE Health Care Decision (hx) 07/13/2022 AD QUINONEZ DIRECTIVE Health Care Decision (hx) 07/13/2022 AD QUINONEZ DIRECTIVE Health Care Decision (hx) 07/13/2022 AD QUINONEZ DIRECTIVE Health Care Decision (hx) 07/13/2022 AD QUINONEZ DIRECTIVE Health Care Decision (hx) 07/13/2022 AD QUINONEZ DIRECTIVE Health Care Decision (hx) 07/13/2022 AD QUINONEZ DIRECTIVE Health Care Decision (hx) 07/13/2022 AD QUINONEZ DIRECTIVE Health Care Decision (hx) 07/13/2022 AD QUINONEZ DIRECTIVE Health Care Decision (hx) 07/13/2022 AD QUINONEZ DIRECTIVE Health Care Decision (hx) 07/13/2022 AD QUINONEZ DIRECTIVE Health Care Decision (hx) 07/13/2022 AD QUINONEZ DIRECTIVE Health Care Decision (hx) 07/13/2022 AD QUINONEZ DIRECTIVE Health Care Decision (hx) 07/13/2022 AD QUINONEZ DIRECTIVE Health Care Decision (hx) 07/13/2022 AD QUINONEZ DIRECTIVE Health Care Decision (hx) 07/13/2022 AD QUINONEZ DIRECTIVE Health Care Decision (hx) 07/13/2022 AD QUINONEZ DIRECTIVE Health Care Decision (hx) 07/13/2022 AD QUINONEZ DIRECTIVE Health Care Decision (hx) 07/13/2022 AD QUINONEZ DIRECTIVE Health Care Decision (hx) 07/13/2022 AD QUINONEZ DIRECTIVE Health Care Decision (hx) 07/13/2022 AD QUINONEZ DIRECTIVE Health Care Decision (hx) 07/13/2022 AD QUINONEZ DIRECTIVE Health Care Decision (hx) 07/13/2022 AD QUINONEZ DIRECTIVE Health Care Decision (hx) 07/13/2022 AD QUINONEZ DIRECTIVE Health Care Decision (hx) 07/13/2022 AD UQINONEZ DIRECTIVE Health Care Decision (hx) 07/13/2022 AD QUINONEZ DIRECTIVE Health Care Decision (hx) 07/13/2022 AD QUINONEZ DIRECTIVE Health Care Decision (hx) 07/13/2022 AD QUINONEZ DIRECTIVE Health Care Decision (hx) 07/13/2022 AD QUINONEZ DIRECTIVE Health Care Decision (hx) 07/13/2022 AD QUINONEZ DIRECTIVE Health Care Decision (hx) 07/13/2022 AD QUINONEZ DIRECTIVE Health Care Decision (hx) 07/13/2022 AD QUINONEZ DIRECTIVE Health Care Decision (hx) 07/13/2022 AD QUINONEZ DIRECTIVE Care Teams Produce Team Lead Relationship Specialty Start Date End Date Leoonr Kirk MD [address] [place] [id number] PCP - General 10/01/1997
--- OUTSIDE RECORDS SUMMARY | 2024-08-10 06:39 | XMS_ITS | Encounter Summary ---
Author Organization [place] [address] Care Team Providers Care Ramp And Cargo Supervisor Name Role Phone Leonor Kirk MD Primary Care Provider [phone] Encounter Details Date Type Department Care Team (Late st Contact Info) Description 03/31/2024 11:33 AM EDT Hospital Encounter [facility] [...] for your loved ones. For example, child welfare caseworker or elderly care for an older adult? [...] - Inhaled Oxygen Concentration - - Weight 144 kg (318 lb) 03/18/2024 10:00 AM EDT Height 177.8 cm (5' 10 ) 03/18/2024 10:00 AM EDT Body Mass Index 45.63 03/18/2024 10:00 AM EDT documented in this encounter Progress Notes * Historical, Notes Results - 03/31/2024 11:00 AM EDT Arrived in electric chair for C39 of treatment. Pt is feeling well today, but his vision is very poor with light sensitivity due to cataracts. Just had a pre- op appt and has surgery for one eye scheduled for 04/09/24, second eye to be done 04/22/24. Pt noted to have gained 10 lbs, does have some pitting edema in ble. 1204 Labs drawn and sent STAT. 1301 Labs resulted, Mag 1.[address] Walsh, OK to proceed with treatment today, no Mag replacement ordered. Premeds administered. 1407 Leucovorin infusion started, call finnegan in reach. 1446 Dr. Walsh up for f/u, order lasix PO at home for a few days. 1511 Leucovorin infusion complete, 5FU bolus given slow IVP over 5 mins, pump hooked up, connections secure, pump started. Pt to return for pump takedown of Fri. Pt left in wheelchair with , stable at D/C. Pt needs calendar for next appts in Apr, will provide at pump take down on Friday documented in this encounter Plan of Treatment Upcoming Encounters Date Type Department Care Team (Late st Contact Info) Description 08/17/2024 9:00 AM EDT Appointment [facility] [address] [place] [phone] 08/17/2024 9:30 AM EDT Appointment [facility] CT Scan [address] [place] [phone] 08/18/2024 9:00 AM EDT Appointment [facility] [address] [place] [phone] 08/25/2024 9:00 AM EDT Office Visit [facility] Hematology Oncology [address] [place] [address] Brielle Walsh, [address] [place] [address] documented as of this encounter Visit Diagnoses Not on filedocumented in this encounter Care Teams Ramp And Cargo Supervisor Relationship Specialty Start Date End Date Leonor Kirk MD [address] [place] [address] PCP - General 10/01/1997 documented as of this encounter
--- OUTSIDE RECORDS SUMMARY | 2024-08-10 06:39 | XMS_ITS | Encounter Summary ---
Author Organization [place] [address] Care Team Providers Care Driver Service Technician Name Role Phone Leonor Kirk MD Primary Care Provider [phone] Reason for Visit * Reason Comments Chemotherapy Pump Takedown * Episode Based Medications (Routine) - Authorized Specialty Diagnoses / Procedures Referred By Roberto vela Referred To Contact Diagnoses Esophageal cancer, stage IV (CMS/HCC) Brielle Walsh DO [address] [place] [address] Phone: tel: fax: [address] [phone] Phone: tel: fax: Referral ID Status Reason Start Date Expiration Date V isits Requested Visits Authorized [id number] Authorized 03/11/2024 03/11/2025 1 28 Encounter Details Date Type Department Care Team (Latest Contact Info) Description 07/16/2024 11:00 AM EST - 07/16/2024 11:59 PM EST Hospital Encounter [address] [phone] Brielle Walsh DO [address] [place] [id number] Esophageal cancer, stage IV (CMS/HCC) (Primary Dx) [...] your loved ones. For example, child care center administrator or elderly care for an older adult? [...] PM EST documented as of this encounter Medications at Time of Discharge [...] 06/03/2024 Magic Mouthwash 1:1:1 (diphenhydrAMINE-l idocaine 2% gwovpfx-umzrpesr-y agnesium hydroxide-simethic one) suspension (compound) 10 mL [...] for irritation or rash. 30 g 07/05/2024 omeprazole (PriLOSEC) [address] capsule Take 1 capsule (20 mg total) by mouth 2 (two) times a day. 90 capsule 1 04/26/2024 5 documented as of this encounter Discharge Disposition Disposition Code Departure Means Destination Home or Self Care documented in this encounter Progress Notes * Precious Ortega RN - 07/16/2024 11:00 AM EST 1105- Patient arrives, via power wheelchair to unit accompanied by Vale for pump takedown following chemotherapy on Friday. Today is cycle 7, day 3 in [facility]. He denies any issues with the pump or infusion while at home. Also denies nausea, vomiting or diarrhea and says I never have any problems. At 1103, 0 mls of 5-FU remain, therefore all 138 mls infused total. Port flushed and deaccessed per protocol. Pressure dressing applied to site. Patient and both aware of next appointments in place - provided at the last visit. They confirmed the appointments are written down at home. Patient left the unit stable, via power wheelchair accompanied by Vale to the car. documented in this encounter Plan of Treatment Upcoming Encounters Date Type Department Care Team (Late st Contact Info) Description 08/17/2024 9:00 AM EDT Appointment [facility] [address] [place] [phone] 08/17/2024 9:30 AM EDT Appointment [facility] CT Scan [address] [place] [phone] 08/18/2024 9:00 AM EDT Appointment [facility] [address] [phone] 08/25/2024 9:00 AM EDT Office Visit [facility] Hematology Oncology [address] [place] [phone] Brielle Walsh, [address] [place] [address] documented as of this encounter Visit Diagnoses Diagnosis Esophageal cancer, stage IV (CMS/HCC)- Primary documented in this encounter Administered Medications Inactive Administered Medications - up to 3 most recent administrations Medication Order MAR Action Action Date Dose Rate Site sodium chloride 0.9 % flush 10 mL 10 mL, intravenous, As needed, line care, per institutional policy, Starting on Fri07/16/24 at 1106Indications:Esophageal cancer, stage IV (CMS/HCC) Given 07/16/2024 11:03 AM EST 10 mL documented in this encounter Orders Medications Ordered That Bull ht Not Have Been Administered Count Last Ordered Date First Ordered Date sodium chloride 0.9 % flush 10 mL 1 025 Nursing Count Last Ordered Date First Orde red Date ONC NURSING COMMUNICATION 12 1 07/16/2024 documented in this encounter Additional Health Concerns Assessment Noted Time PHQ-9 Depression Total Score: 0 04/23/20 24 5:25 PM EST documented as of this encounter Care Teams Driver Service Technician Relationship Specialty Start Date End Date Leonor Kirk MD [address] [place] [address] PCP - General 10/01/1997 documented as of this encounter
--- OUTSIDE RECORDS SUMMARY | 2024-08-10 06:39 | XMS_ITS | Clinical Summary ---
Author Organization [facility] Address [address] [place] [address] Care Team Providers Care Research And Development Researcher Name Role Phone Leonor Kirk MD Primary Care Provider [phone] Social History Tobacco Use Types Packs/Day Years Used Date Smoking Tobacco: Never Assessed Sex and Gender Information Value Date Recorded Sex Assigned at Not on file Legal Sex Male 9:06 AM EDT Gender Identity Not on file Sexual Orientation Not on file Plan of Treatment Health Maintenance Due Date Last Done Comments Pneumococcal Vaccine: Pediatrics (0 to 5 Years) and At-Risk Patients (6 to 64 Years) (1 of 2 - PCV) 1966 Colorectal Cancer Screening: Annual FOBT 2010 Colorectal Cancer Screening: Colonoscopy 2010 Colorectal Cancer Screening: Sigmoidoscopy 2010 Influenza Vaccine (#1) 2024 3, 06/14/2022, 03/10/2017 Hepatitis B Vaccine Aged Out No longe r eligible based on patient's age to complete [place] [address] [facility] Care Teams Research And Development Researcher Relationship Specialty Start Date End Date Leonor Kirk MD PCP - General Internal Medicine 08/28/22
--- OUTSIDE RECORDS SUMMARY | 2024-08-10 06:39 | XMS_ITS | Encounter Summary ---
Author Organization [employer] [place] [address] Care Team Providers Care Human Resources Executive Name Role Phone Leonor Kirk MD Primary Care Provider [phone] Encounter Details Date Type Department Care Team (Late st Contact Info) Description 03/19/2024 2:40 PM EDT Hospital Encounter TH HISTORIC ENCOUNTERS [...] for your loved ones. For example, child neurologist or elderly care for an older adult? [...] Progress Notes * Historical, Notes Results - 03/19/2024 12:30 PM EDT Pt arrives for pump takedown with . Pt reports feeling well and having a few good days while wearing pump. . Pump infused 138ml . Port flushed and positive blood return obtained. Pradeep cath deaccessed, pt tolerated well. Pt and aware of next appointments. Pt reports he is having cataract surgery on apr 09 - call to Dr Walsh to update- per MD pt will be able to continue his every 2 week schedule of chemotherapy . Per MD , at this time there will be no interuption of plan of care. Pt discharged via wheelchair with at side. documented in this encounter Plan of Treatment Upcoming Encounters Date Type Department Care Team (Late st Contact Info) Description 08/17/2024 9:00 AM EDT Appointment [facility] [address] [place] [phone] 08/17/2024 9:30 AM EDT Appointment [facility] CT Scan [address] [place] [phone] 08/18/2024 9:00 AM EDT Appointment [facility] [address] [place] [phone] 08/25/2024 9:00 AM EDT Office Visit [facility] Hematology Oncology [address] [place] [phone] Brielle Walsh, DO [address] [place] [address] documented as of this encounter Visit Diagnoses Not on filedocumented in this encounter Care Teams Human Resources Executive Relationship Specialty Start Date End Date Leonor Kirk MD [address] [place] [address] PCP - General 10/01/1997 documented as of this encounter
--- OUTSIDE RECORDS SUMMARY | 2024-08-10 06:39 | XMS_ITS | Encounter Summary ---
Author Organization [employer] [address] Care Team Providers Care Hospital Cleaner Name Role Phone Leonor Kirk MD Primary Care Provider [phone] Encounter Details Date Type Department Care Team (Late st Contact Info) Description 03/17/2024 10:08 AM EDT Hospital Encounter TH HISTORIC ENCOUNTERS [...] care for your loved ones. For example, director child or elderly care for an older adult? [...] - Inhaled Oxygen Concentration - - Weight 143 kg (315 lb) 03/05/2024 10:56 AM EDT Height 177.8 cm (5' 10 ) 03/05/2024 10:56 AM EDT Body Mass Index 45.2 03/05/2024 10:56 AM EDT documented in this encounter Progress Notes * Historical, Notes Results - 03/17/2024 10:00 AM EDT Pt arrives for stat labs , hydration and treatment ( pending labs) with at side. Pt assessed and reports feeling really well but continues with back pain when ambulating. Pt is waiting on appointment with neurosurgeon. Pt talking easily with staff and reports he continues to take motrin for pain relief when he needs it. Pradeep cath accessed , labs drawn and hydration hung as ordered. Call finnegan in reach . Labs resulted- MD made aware of alk phos -176, okay to treat per MD . Mag -wnl . Pre meds given . Pt reports he is comfortable and does not need any pain medication at this time . Leucovorin complete, pt medicated with 5 FU push and pump . Pt tolerated well , positive blood return throughout. Pt and given calendar of next appointments. Pt discharged via wheelchair - reports feeling well. documented in this encounter Plan of Treatment Upcoming Encounters Date Type Department Care Team (Late st Contact Info) Description 08/17/2024 9:00 AM EDT Appointment [facility] Infusion Center [address] [place] [phone] 08/17/2024 9:30 AM EDT Appointment [facility] CT Scan [address] [place] [phone] 08/18/2024 9:00 AM EDT Appointment [facility] Infusion Center [address] [place] [phone] 08/25/2024 9:00 AM EDT Office Visit [facility] Hematology Oncology [address] [place] [phone] Brielle Walsh, DO [address] [place] [address] documented as of this encounter Visit Diagnoses Not on filedocumented in this encounter Care Teams Hospital Cleaner Relationship Specialty Start Date End Date Leonor Kirk MD [address] [place] [address] PCP - General 10/01/1997 documented as of this encounter
== END 2024-08-10 06:37 | disposition home or self-care (01) ==
LOC: CF 06:36
PROVIDERS: Visit Provider Anesthesiology
DX: M54.16 Radiculopathy, lumbar region (principal); M48.061 Spinal stenosis, lumbar region without neurogenic claudication
CPT/HCPCS: 62323; J2003; J3301; Q9967

== ENCOUNTER 2024-08-10 10:56 | Outpatient (AMB) | payer OTHER, SELFPAY ==
[2024-08-10 11:08] VITALS: BP 160/88; PULSE 77; O2SAT 96
--- NOTE | 2024-08-10 11:08 | MHC.OFFVIS ---
Vital Signs 08/10/24 11:08 08/10/24 12:16 BP 160/88 H 179/82 H Blood Pressure Location Lt brachial Lt brachial Position Sitting Sitting Pulse 77 71 Pulse Source Pulse Oximeter Pulse Oximeter Pulse Oximetry (%) 96 97 Oxygen Delivery Method Room Air Room Air Comment Pre-Op Post-Op Intake Visit Reasons: L3, L4 INTERLAMINAR ESPERANZA Allergies No Known Allergies Allergy (Verified 06/07/24 12:55) PFSH Medical History (Updated 06/07/24 @ 18:10 by HARLAN Vasquez) Port-A-Cath in place Restless legs syndrome (RLS) Obesity Spinal stenosis of lumbar region Status post chemotherapy Back pain Radiculopathy Chronic migraine without aura Pulmonary embolism Esophageal carcinoma HTN (hypertension) Migraines, neuralgic Immune-mediated neuropathy Insomnia Snoring Surgical History H/O umbilical hernia repair Family History Father No problems noted. Mother HTN (hypertension) Social History Household Members: Spouse Caregiver staying overnight: Yes Housing: Apartment Alcohol intake: never Patient Tobacco Use Status: Never used Tobacco Physical Exam Vital Signs: Last Vital Signs Pulse 71 08/10/24 12:16 BP 179/82 H 08/10/24 12:16 Pulse Ox 97 08/10/24 12:16 Oxygen Delivery Method Room Air 08/10/24 12:16 Assessment & Plan Assessment & Plan (1) Lumbar radiculopathy: Code(s): M54.16 - Radiculopathy, lumbar region Category: Medical Plan Attempted interlaminar L3-L4 epidural steroid injection. Informed consent was carefully explained to the patient. Risks and benefits were explained. The patient came to the operating room and he was positioned prone on the operating table with pillow under his abdomen. Time-out was performed delineating name and date of of the patient side and site of the procedure and allergies of the patient. The lower back of the patient was prepped with ChloraPrep and draped with sterile self adhesive utility towels. C-arm was brought over the operating field and sq image of L4 and L3 vertebra were demonstrated on the screen. Several attempts were made to pass the 20 gauge Touhy needle 1st we tried drainage have inch which was too short for the patient and then we switched it to 5 in needle however the needle on AP view was in the projection of the interval interlaminar space L3-L4 and on not lateral view the needle was just touching the silhouette of the spine however further advancement was not possible because needle met bony resistance. It is very likely that L3-L4 interspace is calcified and the procedure as chosen impossible to perform for the patient. The needle was removed sterile Band-Aid was applied. Patient tolerated the procedure fairly well. Orders: Orders FL guidance in treatment room Today M48.061 - Spinal stenosis, lumbar region without neurogenic claudication, M54.16 - Radiculopathy, lumbar region Coding Level of Care Code Procedure Only Diagnoses Lumbar radiculopathy M54.16
[2024-08-10 12:16] VITALS: BP 179/82; PULSE 71; O2SAT 97
--- OUTSIDE RECORDS SUMMARY | 2024-08-10 13:32 | XMS_ITS | Encounter Summary ---
Author Organization [employer] Address [address] [place] [address] Care Team Providers Care Election Watcher Name Role Phone Leonor Kirk MD Primary Care Provider [phone] Reason for Visit * Episode Based Medications (Routine) - Authorized Specialty Diagnoses / Procedures Referred By Roberto vela Referred To Contact Diagnoses Esophageal cancer, stage IV (CMS/HCC) Brielle Walsh DO [address] [place] [address] Phone: tel: fax: [address] [address] Phone: tel: fax: Referral ID Status Reason Start Date Expiration Date V isits Requested Visits Authorized [id number] Authorized 03/11/2024 03/11/2025 28 Encounter Details Date Type Department Care Team (Latest Contact Info) Description 08/04/2024 9:00 AM EST - 08/04/2024 11:59 PM EST Hospital Encounter [address] [phone] Brielle Walsh DO [address] [place] [phone] Esophageal carcinoma (CMS/HCC) (Primary Dx); Esophageal cancer, [...] care for your loved ones. For example, children's aide or elderly care for an older adult? [...] 06/03/2024 Magic Mouthwash 1:1:1 (diphenhydrAMINE-l idocaine 2% fvcfgkc-kwazlwkp-f agnesium hydroxide-simethic one) suspension (compound) 10 mL [...] in this encounter Progress Notes * Debora aNik MA - 08/04/2024 9:00 AM ESTEncounter addended [...] labs obtained and sent Call finnegan at [facility], will monitor. Labs reviewed and ok to treat, patient good with plan. Pre-meds given, call finnegan at [facility], will monitor 5FU push given with + [...] Info) Description 08/17/2024 9:00 AM EDT Appointment [facility] Infusion Center [address] [place] [phone] 08/17/2024 9:30 AM EDT Appointment [facility] CT Scan [address] [place] [phone] 08/18/2024 9:00 AM EDT Appointment [facility] Infusion Center [address] [place] [phone] 08/25/2024 9:00 AM EDT Office Visit [facility] Hematology Oncology [address] [place] [phone] Brielle Walsh DO [address] [place] [phone] documented as of this encounter Procedures Procedure [...] LAB CHEMISTRY METHOD 08/04/2024 11:34 AM EST [facility] Blood Venous blood specimen / Unknown Venipuncture / Unknown 08/04/2024 9:27 AM EST 08/04/2024 9:44 AM EST us Brielle aWlsh DO LAB BLOOD ORDERABLES Final Result [facility] [address] [place] [address], * (ABNORMAL) CBC auto differential (08/04/2024 9:27 AM EST) [facility] WBC 6.7 4.8 - 10.8 K/mcL LAB HEMETOLOGY METHOD 08/04/2024 9:58 AM EST [facility] RBC 3.20(L) 4.50 - 5.50 M/mcL LAB HEMETOLOGY METHOD 08/04/2024 9:58 AM [facility] Hemoglobin 10.7(L) 13.5 - 17.5 g/dL LAB HEMETOLOGY METHOD 08/04/2024 9:58 AM [facility] Hematocrit 33.3(L) 42.0 - 54.0 % LAB HEMETOLOGY METHOD 08/04/2024 9:58 AM [facility] MCV 104.1(H) 79.0 - 98.0 FL LAB HEMETOLOGY METHOD 08/04/2024 9:58 AM [facility] MCH 33.4(H) 27.0 - 32.0 pcg LAB HEMETOLOGY METHOD 08/04/2024 9:58 AM [facility] MCHC 32.1 32.0 - 37.0 g/dL LAB HEMETOLOGY METHOD 08/04/2024 9:58 AM [facility] RDW 14.1 11.0 - 15.0 % LAB HEMETOLOGY METHOD 08/04/2024 9:58 AM [facility] Platelets 221 130 - 400 K/mcL LAB HEMETOLOGY METHOD 08/04/2024 9:58 AM [facility] MPV 9.5 7.0 - 11.0 FL LAB HEMETOLOGY METHOD 08/04/2024 9:58 AM [facility] NRBC 0.3 <1.0 % LAB HEMETOLOGY METHOD 08/04/2024 9:58 AM [facility] NRBC Absolute 0.02 <0.10 K/mcL LAB HEMETOLOGY METHOD 08/04/2024 9:58 AM [facility] Neutrophils Relative 70.8 % LAB HEMETOLOGY METHOD 08/04/2024 9:58 AM [facility] Lymphocytes Relative 10.7 % LAB HEMETOLOGY METHOD 08/04/2024 9:58 AM [facility] Monocytes Relative 10.0 % LAB HEMETOLOGY METHOD 08/04/2024 9:58 AM [facility] Eosinophils Relative 7.0 % LAB HEMETOLOGY METHOD 08/04/2024 9:58 AM [facility] Basophils Relative 0.6 % LAB HEMETOLOGY METHOD 08/04/2024 9:58 AM [facility] Immature Granulocytes Relative 0.9 % LAB HEMETOLOGY METHOD 08/04/2024 9:58 AM [facility] Neutrophils Absolute 4.76 1.50 - 7.00 K/mcL LAB HEMETOLOGY METHOD 08/04/2024 9:58 AM [facility] Lymphocytes Absolute 0.72(L) 1.00 - 5.00 K/mcL LAB HEMETOLOGY METHOD 08/04/2024 9:58 AM [facility] Monocytes Absolute 0.67 0.20 - 1.00 K/mcL LAB HEMETOLOGY METHOD 08/04/2024 9:58 AM [facility] Eosinophils Absolute 0.47 0.00 - 0.50 K/mcL LAB HEMETOLOGY METHOD 08/04/2024 9:58 AM [facility] Basophils Absolute 0.04 0.00 - 0.20 K/mcL LAB HEMETOLOGY METHOD 08/04/2024 9:58 AM [facility] Immature Granulocytes Absolute 0.06(H) 0.00 - 0.03 K/mcL LAB HEMETOLOGY METHOD 08/04/2024 9:58 AM [facility] Blood Venous blood specimen / Unknown Venipuncture / Unknown 08/04/2024 9:27 AM EST 08/04/2024 9:44 AM EST us Brielle Walsh DO LAB BLOOD ORDERABLES Final Result [facility] [address] [place] [address], [place] [phone] * (ABNORMAL) Comprehensive metabolic panel (08/04/2024 9:27 AM EST) Sodium 141 133 - 145 mmol/L LAB CHEMISTRY METHOD 08/04/2024 10:18 AM [facility] Potassium 3.9 3.5 - 5.5 mmol/L LAB CHEMISTRY METHOD 08/04/2024 10:18 AM [facility] Chloride 107 96 - 110 mmol/L LAB CHEMISTRY METHOD 08/04/2024 10:18 AM [facility] CO2 26 21 - 32 mmol/L LAB CHEMISTRY METHOD 08/04/2024 10:18 AM [facility] Anion Gap 8 3 - 11 LAB CHEMISTRY METHOD 08/04/2024 10:18 AM [facility] Glucose 165(H) 70 - 100 mg/dL LAB CHEMISTRY METHOD 08/04/2024 10:18 AM [facility] BUN 12 5 - 25 mg/dL LAB CHEMISTRY METHOD 08/04/2024 10:18 AM [facility] Creatinine 1.12 0.70 - 1.30 mg/dL LAB CHEMISTRY METHOD 08/04/2024 10:18 AM [facility] eGFR 74 >=60 mL/min/1. 73m2 LAB CHEMISTRY METHOD 08/04/2024 10:18 AM EST [facility] Comment:Calculation based on the??Chronic Kidney Disease Epidemiology Collaboration (CKD-EPI) equation refit??without adjustment for race. BUN/Creatinine Ratio 10.7 LAB CHEMISTRY METHOD 08/04/2024 10:18 AM [facility] Calcium 9.1 8.5 - 10.5 mg/dL LAB CHEMISTRY METHOD 08/04/2024 10:18 AM [facility] AST (SGOT) 18 10 - 42 unit/L LAB CHEMISTRY METHOD 08/04/2024 10:18 AM [facility] ALT (SGPT) 28 10 - 60 unit/L LAB CHEMISTRY METHOD 08/04/2024 10:18 AM [facility] Alkaline Phosphatase 184(H) 42 - 121 unit/L LAB CHEMISTRY METHOD 08/04/2024 10:18 AM [facility] Total Protein 6.3 6.0 - 8.0 g/dL LAB CHEMISTRY METHOD 08/04/2024 10:18 AM [facility] Albumin 3.4 3.2 - 5.0 g/dL LAB CHEMISTRY METHOD 08/04/2024 10:18 AM [facility] Total Bilirubin 0.4 0.0 - 1.4 mg/dL LAB CHEMISTRY METHOD 08/04/2024 10:18 AM [facility] Blood Venous blood specimen / Unknown Venipuncture / Unknown 08/04/2024 9:27 AM EST 08/04/2024 9:44 AM EST us Brielle Walsh DO LAB BLOOD ORDERABLES Final Result [facility] [address] [place] [address], documented in this encounter Visit Diagnoses Diagnosis [...] documented as of this encounter Care Teams Election Watcher Relationship Specialty Start Date End Date Leonor Kirk MD [address] [place] [address] PCP - General 10/01/1997 documented as of this encounter
--- OUTSIDE RECORDS SUMMARY | 2024-08-10 13:32 | XMS_ITS | Clinical Summary ---
Author Organization [facility] Address [address] [place] [address] Care Team Providers Care Auto Vinyl Top Installer Name Role Phone Leonor Kirk MD Primary Care Provider [phone] Allergies No known active allergies Medications Medication [...] tablet 0 01/17/2023 Active Benadryl soln 12.5mg/5 pQ-Kdonpx-Gcanptmu susp mouth wash 1:1:1 Swish and spit [...] age to complete this topic Care Teams Auto Vinyl Top Installer Relationship Specialty Start Date End Date Leonor Kirk MD PCP - General Internal Medicine 07/22/22 Lupe Llamas Movie Operator Registered Nurse 07/22/22 Gin Tirado MD [facility] [place], Floor 4 Consulting Physician Medical Oncology 09/11/22
--- OUTSIDE RECORDS SUMMARY | 2024-08-10 13:32 | XMS_ITS ---
Author Organization [facility] Address [address] [place] [address] Care Team Providers Care Print Controller Name Role Phone Leonor Kirk MD Primary Care Provider [phone] Active Problems Problem Noted Date Diagnosed Date Chronic GERD 08/20/2023 08/20/2023 Hypomagnesemia 02/19/2023 Lower extremity weakness 01/24/2023 024 Myelitis 01/24/2023 08/20/2023 Esophageal cancer, stage IV 07/18/2022 Benign essential hypertension 01/24/2006 Overview: Last Assessment & Plan: Patient's blood pressure is acceptable today. He will continue his current antihypertensive medication regimen. Current Oncology Plans [facility] OP 5FU / leucovorin (nivolumab DC)* Plan [...] Date Treatment Medications Discontinue Reason Plan Provider [facility] OP HYDRATION & [facility] OP MAGNESIUM IV REPLETION 07/16/2023 02/23/2024 magnesium sulfatesodium chloride (NS) 0.9 %sodium chloride 0.9 % with KCl 20 mEq Therapy Complete Brielle Walsh N, DO Radiation Treatments * No radiation treatments are documented for this patient in [facility]. Treatments may have been administered in another system.
--- OUTSIDE RECORDS SUMMARY | 2024-08-10 13:32 | XMS_ITS | Encounter Summary ---
Author Organization [employer] [place] [address] Care Team Providers Care Western Tack Assembly Line Worker Name Role Phone Leonor Kirk MD Primary Care Provider [phone] Encounter Details Date Type Department Care Team (Late st Contact Info) Description 06/10/[address] [facility] - Main Lab [address] [facility] [place] [address] Any Peralta MD [address] [facility] [address] [place] [address] Elevated prostate specific antigen (PSA) Social History [...] for your loved ones. For example, children's choir director or elderly care for an older [...] Info) Description 08/17/2024 9:00 AM EDT Appointment [facility] Infusion Center [address] [phone] 08/17/2024 9:30 AM EDT Appointment [facility] CT Scan [address] [place] [phone] 08/18/2024 9:00 AM EDT Appointment [facility] Infusion Center [address] [phone] 08/25/2024 9:00 AM EDT Office Visit [facility] Hematology Oncology [address] [place] [phone] Brielle Walsh DO [address] [place] [address] documented as of this encounter Procedures Procedure Name Priority Date/Time Associated Diagnosis Comments PROSTATE SPECIFIC ANTIGEN DIAGNOSTIC Routine 06/10/2024 11:10 AM EST Elevated prostate specific antigen (PSA) documented in this encounter Results * Prostate specific antigen diagnostic (06/10/2024 11:10 AM EST) PSA 0.75 0.00 - 4.00 ng/mL LAB CHEMISTRY METHOD 06/10/2024 2:52 PM EST [facility] Blood Venous blood specimen / Unknown 06/10/2024 11:10 AM EST 06/10/2024 2:19 PM EST Narrative [facility] - 06/10/2024 2:52 PM EST The Siemens Advia Centaur Chemiluminescent Immunoassay is used. Results obtained with different assay methods or kits cannot be used interchangeably. Results cannot be interpreted as absolute evidence of the presence or absence of malignant disease. us Any Peralta MD LAB BLOOD ORDERABLES Fin al Result [facility] [address] [place] [address], documented in this encounter Visit Diagnoses Diagnosis Elevated prostate specific antigen (PSA) documented in this encounter Additional Health Concerns Assessment Noted Time PHQ-9 Depression Total Score: 0 04/23/20 24 5:25 PM EST documented as of this encounter Care Teams Western Tack Assembly Line Worker Relationship Specialty Start Date End Date Leonor Kirk MD [address] [place] [address] PCP - General 10/01/1997 documented as of this encounter
--- OUTSIDE RECORDS SUMMARY | 2024-08-10 13:32 | XMS_ITS | Encounter Summary ---
Author Organization [employer] [place] [address] Care Team Providers Care Youth Services Librarian Name Role Phone Leonor Kirk MD Primary Care Provider Reason for Visit * Reason Comments Chemotherapy Pump Takedown Encounter Details Date Type Department Care Team (Latest Contact Info) Description 08/06/2024 10:45 AM EST - 08/06/2024 11:59 PM EST Hospital Encounter [facility] Infusion Center [address] [phone] Brielle Walsh, [address] [place] [address] Esophageal cancer, stage IV (CMS/HCC) (Primary Dx) [...] for your loved ones. For example, children's court magistrate or elderly care for an older adult? [...] 06/03/2024 Magic Mouthwash 1:1:1 (diphenhydrAMINE-l idocaine 2% wzzeqng-tczijqjk-x agnesium hydroxide-simethic one) suspension (compound) 10 mL [...] Today is cycle 8, day 3 in [facility]. He denies any issues with the [...] Info) Description 08/17/2024 9:00 AM EDT Appointment [facility] Infusion Center [address] [place] [phone] 08/17/2024 9:30 AM EDT Appointment [facility] CT Scan [address] [place] [phone] 08/18/2024 9:00 AM EDT Appointment [facility] Infusion Center [address] [place] [phone] 08/25/2024 9:00 AM EDT Office Visit [facility] Hematology Oncology [address] [place] [phone] Brielle Walsh DO [address] [place] [address] documented as of this encounter Visit Diagnoses [...] documented as of this encounter Care Teams Youth Services Librarian Relationship Specialty Start Date End Date Leonor Kirk MD [address] [place] [address] PCP - General 10/01/1997 documented as of this encounter
--- OUTSIDE RECORDS SUMMARY | 2024-08-10 13:33 | XMS_ITS | Encounter Summary ---
Author Organization [employer] [place] [address] Care Team Providers Care Architectural Drafting Instructor Name Role Phone Leonor Kirk MD Primary Care Provider [phone] Encounter Details Date Type Department Care Team [...] your loved ones. For example, child care centre director or elderly care for an older [...] Info) Description 08/17/2024 9:00 AM EDT Appointment [facility] Infusion Center [address] [place] [phone] 08/17/2024 9:30 AM EDT Appointment [facility] CT Scan [address] [place] [phone] 08/18/2024 9:00 AM EDT Appointment [facility] Infusion Center [address] [place] [phone] 08/25/2024 9:00 AM EDT Office Visit [facility] Hematology Oncology [address] [place] [phone] Brielle Walsh, DO [address] [place] [address] documented as of this encounter Visit Diagnoses Not on filedocumented in this encounter Care Teams Architectural Drafting Instructor Relationship Specialty Start Date End Date Leonor Kirk MD [address] [place] [address] PCP - General 10/01/1997 documented as of this encounter
--- OUTSIDE RECORDS SUMMARY | 2024-08-10 13:33 | XMS_ITS | Encounter Summary ---
Author Organization [employer] [address] Care Team Providers Care Blanket Weaver Name Role Phone Leonor Kirk MD Primary Care Provider [phone] Encounter Details Date Type Department Care Team [...] for your loved ones. For example, child caregiver or elderly care for an older adult? [...] Description 08/17/2024 9:00 AM EDT Appointment [facility] Infusion Center [address] [place] [phone] 08/17/2024 9:30 AM EDT Appointment [facility] CT Scan [address] [place] [phone] 08/18/2024 9:00 AM EDT Appointment [facility] Infusion Center [address] [place] [phone] 08/25/2024 9:00 AM EDT Office Visit [facility] Hematology Oncology [address] [place] [phone] Brielle Walsh, DO [address] [place] [address] documented as of this encounter Visit Diagnoses Not on filedocumented in this encounter Care Teams Blanket Weaver Relationship Specialty Start Date End Date Leonor Kirk MD [address] [place] [address] PCP - General 10/01/1997 documented as of this encounter
--- OUTSIDE RECORDS SUMMARY | 2024-08-10 13:33 | XMS_ITS | Encounter Summary ---
Author Organization [employer] Address [address] [place] [address] Care Team Providers Care Cutter Inspector Name Role Phone Leonor Kirk MD Primary Care Provider [phone] Reason for Visit * Episode Based Medications (Routine) - Authorized Specialty Diagnoses / Procedures Referred By Roberto t Referred To Contact Diagnoses Esophageal cancer, stage IV (CMS/HCC) Brielle Walsh DO [address] [place] [address] Phone: tel: fax: [address] [address] Phone: tel: fax: Referral ID Status Reason Start Date Expiration Date V isits Requested Visits Authorized [id number] Authorized 03/11/2024 03/11/2025 1 28 Encounter Details Date Type Department Care Team (Latest Contact Info) Description 07/14/2024 9:00 AM EST - 07/14/2024 11:59 PM EST Hospital Encounter [address] [phone] Brielle Walsh DO [address] [place] [phone] Esophageal cancer, stage IV (CMS/HCC) (Primary Dx) [...] for your loved ones. For example, child day care teacher or elderly care for an older [...] 06/03/2024 Magic Mouthwash 1:1:1 (diphenhydrAMINE-l idocaine 2% etrymoi-mnwcmlbw-e agnesium hydroxide-simethic one) suspension (compound) 10 mL [...] Info) Description 08/17/2024 9:[address] [facility] [address] [place] [phone] 08/17/2024 9:[address] [facility] CT Scan [address] [place] [phone] 08/18/2024 9:[address] [facility] [address] [place] [phone] 08/25/2024 9:00 AM EDT Office Visit [facility] Hematology Oncology [address] [place] [phone] Brielle Walsh, [address] [place] [address] documented as of this encounter Procedures Procedure [...] K/mcL LAB HEMETOLOGY METHOD 07/14/2024 9:28 AM [facility] RBC 3.10(L) 4.50 - 5.50 M/mcL LAB HEMETOLOGY METHOD 07/14/2024 9:28 AM [facility] Hemoglobin 10.5(L) 13.5 - 17.5 g/dL LAB HEMETOLOGY METHOD 07/14/2024 9:28 AM [facility] Hematocrit 32.0(L) 42.0 - 54.0 % LAB HEMETOLOGY METHOD 07/14/2024 9:28 AM [facility] MCV 103.6(H) 79.0 - 98.0 FL LAB HEMETOLOGY METHOD 07/14/2024 9:28 AM [facility] MCH 34.0(H) 27.0 - 32.0 pcg LAB HEMETOLOGY METHOD 07/14/2024 9:28 AM [facility] MCHC 32.8 32.0 - 37.0 g/dL LAB HEMETOLOGY METHOD 07/14/2024 9:28 AM [facility] RDW 14.6 11.0 - 15.0 % LAB HEMETOLOGY METHOD 07/14/2024 9:28 AM [facility] Platelets 150 130 - 400 K/mcL LAB HEMETOLOGY METHOD 07/14/2024 9:28 AM [facility] MPV 9.5 7.0 - 11.0 FL LAB HEMETOLOGY METHOD 07/14/2024 9:28 AM [facility] NRBC 0.0 <1.0 % LAB HEMETOLOGY METHOD 07/14/2024 9:28 AM [facility] NRBC Absolute 0.00 <0.10 K/mcL LAB HEMETOLOGY METHOD 07/14/2024 9:28 AM [facility] Neutrophils Relative 74.6 % LAB HEMETOLOGY METHOD 07/14/2024 9:28 AM [facility] Lymphocytes Relative 9.7 % LAB HEMETOLOGY METHOD 07/14/2024 9:28 AM [facility] Monocytes Relative 8.4 % LAB HEMETOLOGY METHOD 07/14/2024 9:28 AM [facility] Eosinophils Relative 6.2 % LAB HEMETOLOGY METHOD 07/14/2024 9:28 AM [facility] Basophils Relative 0.7 % LAB HEMETOLOGY METHOD 07/14/2024 9:28 AM [facility] Immature Granulocytes Relative 0.4 % LAB HEMETOLOGY METHOD 07/14/2024 9:28 AM [facility] Neutrophils Absolute 5.13 1.50 - 7.00 K/mcL LAB HEMETOLOGY METHOD 07/14/2024 9:28 AM [facility] Lymphocytes Absolute 0.67(L) 1.00 - 5.00 K/mcL LAB HEMETOLOGY METHOD 07/14/2024 9:28 AM [facility] Monocytes Absolute 0.58 0.20 - 1.00 K/mcL LAB HEMETOLOGY METHOD 07/14/2024 9:28 AM [facility] Eosinophils Absolute 0.43 0.00 - 0.50 K/mcL LAB HEMETOLOGY METHOD 07/14/2024 9:28 AM [facility] Basophils Absolute 0.05 0.00 - 0.20 K/mcL LAB HEMETOLOGY METHOD 07/14/2024 9:28 AM [facility] Immature Granulocytes Absolute 0.03 0.00 - 0.03 K/mcL LAB HEMETOLOGY METHOD 07/14/2024 9:28 AM [facility] Blood Blood sample taken from central line / Unknown Existing Catheter / Unknown 07/14/2024 9:18 AM EST 07/14/2024 9:24 AM EST us Brielle Websteruliffe DO LAB BLOOD ORDERABLES Final Result [facility] [address] [place] [address], [place] [phone] * (ABNORMAL) Comprehensive metabolic panel (07/14/2024 9:18 AM EST) Sodium 141 133 - 145 mmol/L LAB CHEMISTRY METHOD 07/14/2024 9:51 AM [facility] Potassium 3.7 3.5 - 5.5 mmol/L LAB CHEMISTRY METHOD 07/14/2024 9:51 AM [facility] Chloride 105 96 - 110 mmol/L LAB CHEMISTRY METHOD 07/14/2024 9:51 AM [facility] CO2 24 21 - 32 mmol/L LAB CHEMISTRY METHOD 07/14/2024 9:51 AM [facility] Anion Gap 12(H) 3 - 11 LAB CHEMISTRY METHOD 07/14/2024 9:51 AM [facility] Glucose 137(H) 70 - 100 mg/dL LAB CHEMISTRY METHOD 07/14/2024 9:51 AM [facility] BUN 16 5 - 25 mg/dL LAB CHEMISTRY METHOD 07/14/2024 9:51 AM [facility] Creatinine 1.16 0.70 - 1.30 mg/dL LAB CHEMISTRY METHOD 07/14/2024 9:51 AM [facility] eGFR 71 >=60 mL/min/1. 73m2 LAB CHEMISTRY METHOD 07/14/2024 9:51 AM [facility] Comment:Calculation based on the??Chronic Kidney Disease Epidemiology Collaboration (CKD-EPI) equation refit??without adjustment for race. BUN/Creatinine Ratio 13.8 LAB CHEMISTRY METHOD 07/14/2024 9:51 AM [facility] Calcium 8.9 8.5 - 10.5 mg/dL LAB CHEMISTRY METHOD 07/14/2024 9:51 AM [facility] AST (SGOT) 16 10 - 42 unit/L LAB CHEMISTRY METHOD 07/14/2024 9:51 AM [facility] ALT (SGPT) 30 10 - 60 unit/L LAB CHEMISTRY METHOD 07/14/2024 9:51 AM [facility] Alkaline Phosphatase 165(H) 42 - 121 unit/L LAB CHEMISTRY METHOD 07/14/2024 9:51 AM [facility] Total Protein 6.3 6.0 - 8.0 g/dL LAB CHEMISTRY METHOD 07/14/2024 9:51 AM [facility] Albumin 3.4 3.2 - 5.0 g/dL LAB CHEMISTRY METHOD 07/14/2024 9:51 AM [facility] Total Bilirubin 0.5 0.0 - 1.4 mg/dL LAB CHEMISTRY METHOD 07/14/2024 9:51 AM [facility] Blood Blood sample taken from central line / Unknown Existing Catheter / Unknown 07/14/2024 9:18 AM EST 07/14/2024 9:24 AM EST us Brielle Walsh DO LAB BLOOD ORDERABLES Final Result [facility] [address] [place] [address], * (ABNORMAL) Magnesium (07/14/2024 9:18 AM EST) Magnesium 1.7(L) 1.9 - 2.6 mg/dL LAB CHEMISTRY METHOD 07/14/2024 9:51 AM EST [facility] Blood Blood sample taken from central line / Unknown Existing Catheter / Unknown 07/14/2024 9:18 AM EST 07/14/2024 9:24 AM EST Brielle Hooks Nico DO LAB BLOOD ORDERABLES Final Result [facility] [address] [place] [address], documented in this encounter Visit Diagnoses Diagnosis [...] documented as of this encounter Care Teams Cutter Inspector Relationship Specialty Start Date End Date Leonor Kirk MD [address] [place] [address] PCP - General 10/01/1997 documented as of this encounter
--- OUTSIDE RECORDS SUMMARY | 2024-08-10 13:33 | XMS_ITS | Encounter Summary ---
Author Organization [employer] [place] [address] Care Team Providers Care Aligner Barrel And Receiver Name Role Phone Leonor Kirk MD Primary Care Provider [phone] Encounter Details Date Type Department Care Team [...] EDT Appointment [facility] [address] [place] [phone] 08/17/2024 9:[address] [facility] CT Scan [address] [place] [phone] 08/18/2024 9:[address] [facility] [address] [place] [phone] 08/25/2024 9:00 AM EDT Office Visit [facility] Hematology Oncology [address] [place] [phone] Brielle Walsh DO [address] [place] [address] documented as of this encounter Visit Diagnoses Not on filedocumented in this encounter Care Teams Aligner Barrel And Receiver Relationship Specialty Start Date End Date Leonor Kirk MD [address] [place] [address] PCP - General 10/01/1997 documented as of this encounter
--- OUTSIDE RECORDS SUMMARY | 2024-08-10 13:33 | XMS_ITS | Encounter Summary ---
Author Organization [place] [address] Care Team Providers Care Hides Soaker Name Role Phone Leonor Kirk MD Primary Care Provider [phone] Encounter Details Date Type Department Care Team [...] your loved ones. For example, child care team lead or elderly care for an older adult? [...] Description 08/17/2024 9:00 AM EDT Appointment [facility] Infusion Center [address] [place] [phone] 08/17/2024 9:30 AM EDT Appointment [facility] CT Scan [address] [place] [phone] 08/18/2024 9:00 AM EDT Appointment [facility] Infusion Center [address] [place] [phone] 08/25/2024 9:00 AM EDT Office Visit [facility] Hematology Oncology [address] [place] [phone] Brielle Walsh, [address] [place] [address] documented as of this encounter Visit Diagnoses Not on filedocumented in this encounter Care Teams Hides Soaker Relationship Specialty Start Date End Date Leonor Kirk MD [address] [place] [address] PCP - General 10/01/1997 documented as of this encounter
--- OUTSIDE RECORDS SUMMARY | 2024-08-10 13:33 | XMS_ITS | Encounter Summary ---
Author Organization [employer] [place] [address] Care Team Providers Care Filler Operator Name Role Phone Leonor Kirk MD Primary Care Provider [phone] Reason for Visit * Reason Comments Chemotherapy Pump Takedown * Episode Based Medications (Routine) - Authorized Specialty Diagnoses / Procedures Referred By Roberto vela Referred To Contact Diagnoses Esophageal cancer, stage IV (CMS/HCC) Brielle Walsh DO [address] [place] [address] Phone: tel: fax: [address] [address] Phone: tel: fax: Referral ID Status Reason Start Date Expiration Date V isits Requested Visits Authorized [id number] Authorized 03/11/2024 03/11/2025 1 28 Encounter Details Date Type Department Care Team (Latest Contact Info) Description 07/16/2024 11:00 AM EST - 07/16/2024 11:59 PM EST Hospital Encounter [address] [phone] Brielle Walsh DO [address] [place] [address] Esophageal cancer, stage IV (CMS/HCC) (Primary Dx) [...] 06/03/2024 Magic Mouthwash 1:1:1 (diphenhydrAMINE-l idocaine 2% vxusgnk-uslzalry-u agnesium hydroxide-simethic one) suspension (compound) 10 mL [...] Today is cycle 7, day 3 in [facility]. He denies any issues with the [...] [facility] [address] [place] [phone] 08/17/2024 9:30 AM EDT Appointment [facility] CT Scan [address] [place] [address] 08/18/2024 9:00 AM EDT Appointment [facility] [address] [phone] 08/25/2024 9:00 AM EDT Office Visit [facility] Hematology Oncology [address] [place] [address] Brielle Walsh, [address] [place] [address] documented as of this encounter Visit Diagnoses [...] documented as of this encounter Care Teams Filler Operator Relationship Specialty Start Date End Date Leonor Kirk MD [address] [place] [address] PCP - General 10/01/1997 documented as of this encounter
--- OUTSIDE RECORDS SUMMARY | 2024-08-10 13:33 | XMS_ITS | Encounter Summary ---
Author Organization [employer] [place] [address] Care Team Providers Care Target Network Analyst Name Role Phone Leonor Kirk MD Primary Care Provider [phone] Reason for Visit * Reason Comments Follow-up Encounter Details Date Type Department Care Team (Latest Contact Info) Description 07/27/2024 11:00 AM EST Office Visit [facility] Hematology Oncology [address] [place] [phone] Kirk Collazo PA [address] [place] [address] Esophageal cancer, stage IV (CMS/HCC) (Primary Dx); [...] for your loved ones. For example, children's nursery assistant or elderly care for an older adult? 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 Lab Results [...] eliquis Sign SOBEIDA [facility] - Hematology/Oncology [facility] CC: Leonor Kirk MD Encounter involves [...] AM EDT Appointment [facility] [address] [place] [phone] 08/17/2024 9:30 AM EDT Appointment [facility] CT Scan [address] [place] [phone] 08/18/2024 9:00 AM EDT Appointment [facility] [address] [place] [phone] 08/25/2024 9:00 AM EDT Office Visit [facility] Hematology Oncology [address] [place] [phone] Brielle Walsh DO [address] [place] [address] documented as of this encounter Results * Magnesium (07/27/2024 11:44 AM EST) Magnesium 1.9 1.9 - 2.6 mg/dL LAB CHEMISTRY METHOD 07/27/2024 2:38 PM [facility] Blood Venous blood specimen / Unknown Venipuncture / Unknown 07/27/2024 11:44 AM EST 07/27/2024 1:39 PM EST us Kirk VIDALES LAB BLOOD ORDERABLES Final Resul t [facility] [address] [place] [address], * (ABNORMAL) Comprehensive metabolic panel (07/27/2024 11:44 AM EST) Pathologist [facility] Sodium 138 133 - 145 mmol/L LAB CHEMISTRY METHOD 07/27/2024 2:38 PM [facility] Potassium 3.8 3.5 - 5.5 mmol/L LAB CHEMISTRY METHOD 07/27/2024 2:38 PM [facility] Chloride 107 96 - 110 mmol/L LAB CHEMISTRY METHOD 07/27/2024 2:38 PM [facility] CO2 25 21 - 32 mmol/L LAB CHEMISTRY METHOD 07/27/2024 2:38 PM [facility] Anion Gap 6 3 - 11 LAB CHEMISTRY METHOD 07/27/2024 2:38 PM [facility] Glucose 157(H) 70 - 100 mg/dL LAB CHEMISTRY METHOD 07/27/2024 2:38 PM [facility] BUN 15 5 - 25 mg/dL LAB CHEMISTRY METHOD 07/27/2024 2:38 PM [facility] Creatinine 1.24 0.70 - 1.30 mg/dL LAB CHEMISTRY METHOD 07/27/2024 2:38 PM [facility] eGFR 65 >=60 mL/min/1. 73m2 LAB CHEMISTRY METHOD 07/27/2024 2:38 PM [facility] Comment:Calculation based on the??Chronic Kidney Disease Epidemiology Collaboration (CKD-EPI) equation refit??without adjustment for race. BUN/Creatinine Ratio 12.1 LAB CHEMISTRY METHOD 07/27/2024 2:38 PM [facility] Calcium 9.2 8.5 - 10.5 mg/dL LAB CHEMISTRY METHOD 07/27/2024 2:38 PM [facility] AST (SGOT) 16 10 - 42 unit/L LAB CHEMISTRY METHOD 07/27/2024 2:38 PM [facility] ALT (SGPT) 30 10 - 60 unit/L LAB CHEMISTRY METHOD 07/27/2024 2:38 PM [facility] Alkaline Phosphatase 183(H) 42 - 121 unit/L LAB CHEMISTRY METHOD 07/27/2024 2:38 PM [facility] Total Protein 6.5 6.0 - 8.0 g/dL LAB CHEMISTRY METHOD 07/27/2024 2:38 PM [facility] Albumin 3.4 3.2 - 5.0 g/dL LAB CHEMISTRY METHOD 07/27/2024 2:38 PM [facility] Total Bilirubin 0.5 0.0 - 1.4 mg/dL LAB CHEMISTRY METHOD 07/27/2024 2:38 PM [facility] Blood Venous blood specimen / Unknown Venipuncture / Unknown 07/27/2024 11:44 AM EST 07/27/2024 1:39 PM EST us Kirk VIDALES LAB BLOOD ORDERABLES Final Resul t [facility] [address] [place] [address], documented in this encounter Visit Diagnoses Diagnosis [...] documented as of this encounter Care Teams Target Network Analyst Relationship Specialty Start Date End Date Leonor Kirk MD [address] [place] [address] PCP - General 10/01/1997 documented as of this encounter
--- OUTSIDE RECORDS SUMMARY | 2024-08-10 13:33 | XMS_ITS | Clinical Summary ---
Author Organization [facility] Facility Address [address] [place] [address] Care Team Providers Care Cytology Technologist Name Role Phone Leonor Kirk MD Primary Care Provider [phone] Social History Tobacco Use Types Packs/Day Years [...] to complete [place] [address] [facility] Care Teams Cytology Technologist Relationship Specialty Start Date End Date Leonor Kirk MD PCP - General Internal Medicine 08/28/22
--- OUTSIDE RECORDS SUMMARY | 2024-08-10 13:33 | XMS_ITS | Encounter Summary ---
Author Organization [facility] [place] [address] Care Team Providers Care Coding Quality Analyst Name Role Phone Leonor Kirk MD Primary Care Provider [phone] Reason for Visit * Reason Onset Date Comments Prior Auth 07/20/2024 Metoprol Tartrat e 50 MG Tablets Encounter Details Date Type Department Care Team (Late st Contact Info) Description 07/20/2024 Telephone Adult Medicine [facility] [address] [place] [phone] Leonor Kirk MD [address] [place] [address] Prior Auth (Metoprol Tartrate 50 MG Tablets) [...] your loved ones. For example, child support officer or elderly care for an older adult? [...] Candel[place] - 07/20/2024 2:44 PM EST Keycode [id number] Patient Last Name Laury 1960 Metoprol Tartrate 50 MG Tablets documented in this encounter Plan of Treatment Upcoming Encounters Date Type Department Care Team (Late st Contact Info) Description 08/17/2024 9:00 AM EDT Appointment [facility] Infusion Center [address] [phone] 08/17/2024 9:30 AM EDT Appointment [facility] CT Scan [address] [place] [address] 08/18/2024 9:00 AM EDT Appointment [address] [phone] 08/25/2024 9:00 AM EDT Office Visit [facility] Hematology Oncology [address] [place] [address] Brielle Walsh, [address] [place] [address] documented as of this encounter Visit Diagnoses Not on filedocumented in this encounter Additional Health Concerns Assessment Noted Time PHQ-9 Depression Total Score: 0 04/23/20 24 5:25 PM EST documented as of this encounter Care Teams Coding Quality Analyst Relationship Specialty Start Date End Date Leonor Kirk MD [address] [place] [address] PCP - General 10/01/1997 documented as of this encounter
--- OUTSIDE RECORDS SUMMARY | 2024-08-10 13:33 | XMS_ITS | Encounter Summary ---
Author Organization [facility] [place] [address] Care Team Providers Care Assembler Radio And Electrical Name Role Phone Leonor Kirk MD Primary Care Provider [phone] Reason for Visit * Reason Onset Date Comments prior auth for meds 07/14/2024 Encounter Details Date Type Department Care Team ([facility] st Contact Info) Description 07/14/2024 Telephone Adult Medicine [facility] [address] [place] [phone] Leonor Kirk MD [address] [place] [address] prior auth for meds Social History Tobacco [...] your loved ones. For example, early childhood worker or elderly care for an older [...] Is this a Cover My Meds request: [place] of Medication Metoprolol Dose of Medication 50mg What is the RX # from the faxed refill? How does patient take this med? What Pharmacy did the fax come from: [facility] fax #: [employer] Information from fax: What Prescription Plan does the patient have? BIN/PCN if applicable: [id number] Cardholder ID: Person Code: Relationship Code: Help desk phone: documented in this encounter Plan of Treatment Upcoming Encounters Date Type Department Care Team (Late st Contact Info) Description 08/17/2024 9:00 AM EDT Appointment [facility] Infusion Center [address] [place] [phone] 08/17/2024 9:30 AM EDT Appointment [facility] CT Scan [address] [place] [phone] 08/18/2024 9:00 AM EDT Appointment [facility] [address] [place] [phone] 08/25/2024 9:00 AM EDT Office Visit [facility] Hematology Oncology [address] [place] [phone] Brielle Walsh DO [address] [place] [address] documented as of this encounter Visit Diagnoses Not on filedocumented in this encounter Additional Health Concerns Assessment Noted Time PHQ-9 Depression Total Score: 0 04/23/20 24 5:25 PM EST documented as of this encounter Care Teams Assembler Radio And Electrical Relationship Specialty Start Date End Date Leonor Kirk MD [address] [place] [address] PCP - General 10/01/1997 documented as of this encounter
--- OUTSIDE RECORDS SUMMARY | 2024-08-10 13:33 | XMS_ITS | Encounter Summary ---
Author Organization [employer] [place] [address] Care Team Providers Care Natural Gas Engineer Name Role Phone Leonor Kirk MD Primary Care Provider [phone] Reason for Visit * Reason Comments Fall Slip and fall onto k nees in the ice. Encounter Details Date Type Department Care Team (Late st Contact Info) Description 07/28/2024 8:33 AM EST - 07/28/2024 10:51 AM EST Emergency [facility] Emergency [address] [place] [phone] Farhad Benitez MD [address] [place] [phone] Fall, initial encounter (Primary Dx); Contusion of [...] your loved ones. For example, director child abuse therapy or elderly care for an older adult? [...] be sent through Care Everywhere. * Contusion (Puerto Rican) * Knee Pain or Injury (Puerto Rican) documented in this encounter Medications at Time [...] 06/03/2024 Magic Mouthwash 1:1:1 (diphenhydrAMINE-l idocaine 2% zsgeokg-twnnsjry-z agnesium hydroxide-simethic one) suspension (compound) 10 mL [...] Description 08/17/2024 9:00 AM EDT Appointment [facility] Infusion Center [address] [place] [phone] 08/17/2024 9:30 AM EDT Appointment [facility] CT Scan [address] [place] [phone] 08/18/2024 9:00 AM EDT Appointment [address] [phone] 08/25/2024 9:00 AM EDT Office Visit [facility] Hematology Oncology [address] [place] [phone] Brielle Walsh, [address] [place] [address] documented as of this encounter Procedures Procedure Name Priority Date/Time Associated Diagnosis Comments XR KNEE 4+ VIEWS BILAT STAT 07/28/2024 9:31 AM EST documented in this encounter Results * XR Knee 4+ Views bilat (07/28/2024 9:31 AM EST) Anatomical Region Laterality Modality Lower Extremities, Knee Bilateral [facility] 07/28/2024 9:43 AM EST Impressions 07/28/2024 9:46 AM EST Degenerative changes of the right knee. ??No acute findings. -------- FINAL REPORT -------- Dictated By: Liban Maddox Dictated Date: 07/28/2024 09:43 ET Assigned Physician: Liban Maddox Reviewed and Electronically Signed By: Liban Maddox Signed Date: 07/28/2024 09:46 ET Workstation ID: [id number] Transcribed By: Self Edit Transcribed Date: 07/28/2024 [...] Signed Date: 07/28/2024 09:46 ET Workstation ID: [id number] Transcribed By: Self Edit Transcribed Date: 07/28/2024 [...] 1 dose 0850 (Given - Provid er: Elzbieta Rowell RN) documented in this encounter Orders Medications Ordered That Bull ht Not Have Been Administered Count Last Ordered Date First Ordered Date oxyCODONE-acetaminophen (PER COCET) 5-325 mg per tablet 2 tablet 1 07/28/2024 documented in this encounter Additional Health Concerns Assessment Noted Time PHQ-9 Depression Total Score: 0 04/23/20 24 5:25 PM EST documented as of this encounter Care Teams Natural Gas Engineer Relationship Specialty Start Date End Date Leonor Kirk MD [address] [place] [address] PCP - General 10/01/1997 documented as of this encounter
--- OUTSIDE RECORDS SUMMARY | 2024-08-10 13:34 | XMS_ITS | Clinical Summary ---
Author Organization [facility] Address [address] [place] [address] Phone Care Team Providers Care Grizzly Worker Name Role Phone Leonor Kirk MD Primary Care Provider [phone] Allergies No known active allergies Medications acetaminophen [...] 2022. He recently underwent a 30-day ambulatory potline monitor in February 2023 which showed sinus rhythm [...] anticoagulation given these results. He has a [id number] score of 1 and continues on anticoagulation [...] - 08/06/2024 11:59 PM EST Hospital Encounter [facility] [address] [place] [phone] Brielle Walsh DO Esophageal cancer, stage IV (CMS/HCC) (Primary Dx) Discharge Disposition: Home or Self Care 08/04/2024 9:00 AM EST - 08/04/2024 11:59 PM EST Hospital Encounter [facility] [address] [place] [phone] Brielle Walsh DO Esophageal carcinoma (CMS/HCC) (Primary Dx); Esophageal cancer, stage IV (CMS/HCC) Discharge Disposition: Home or Self Care 07/28/2024 8:33 AM EST - 07/28/2024 10:51 AM EST Emergency [facility] Emergency [address] [place] [phone] Farhad Benitez MD Fall, initial encounter (Primary Dx); Contusion of right knee, initial encounter Discharge Disposition: Home or Self Care 07/27/2024 11:00 AM EST Office Visit [facility] Hematology Oncology [address] [place] [phone] Mona Menjivar PA Esophageal cancer, stage IV (CMS/HCC) (Primary Dx); Anemia due to antineoplastic chemotherapy; Hypomagnesemia; Weakness of both lower extremities; History of pulmonary embolism 07/20/2024 Telephone Adult Medicine [address] [phone] Leonor Kirk MD Prior Auth (Metoprol Tartrate 50 MG Tablets) 07/16/2024 11:00 AM EST - 07/16/2024 11:59 PM EST Hospital Encounter [address] [phone] Brielle Walsh DO Esophageal cancer, stage IV (CMS/HCC) (Primary Dx) Discharge Disposition: Home or Self Care 07/14/2024 9:00 AM EST - 07/14/2024 11:59 PM EST Hospital Encounter [address] [phone] Brielle Walsh DO Esophageal cancer, stage IV (CMS/HCC) (Primary Dx) Discharge Disposition: Home or Self Care 07/14/2024 Telephone Adult [address] [phone] Leonor Kirk MD prior auth for meds 07/01/2024 11:30 AM EST - 07/01/2024 11:59 PM EST Hospital Encounter [address] [phone] Brielle Walsh DO Esophageal cancer, stage IV (CMS/HCC) (Primary Dx) Discharge Disposition: Home or Self Care 06/29/2024 9:00 AM EST - 06/29/2024 11:59 PM EST Hospital Encounter [address] [phone] Brielle Walsh DO Esophageal cancer, stage IV (CMS/HCC) (Primary Dx) Discharge Disposition: Home or Self Care 06/22/2024 10:45 AM EST Office Visit [facility] Hematology Oncology [address] [place] [phone] Brielle Walsh DO Esophageal cancer, stage IV (CMS/HCC) (Primary Dx); Anemia due to antineoplastic chemotherapy; Weakness of both lower extremities; Hypomagnesemia 06/17/2024 12:00 PM EST - 06/17/2024 11:59 PM EST Hospital Encounter [facility] [address] [place] [phone] Brielle Walsh DO Esophageal cancer, stage IV (CMS/HCC) (Primary Dx) Discharge Disposition: Home or Self Care 06/16/[address] [phone] Leonor Kirk MD Provider Call Back 06/15/2024 9:28 AM EST - 06/15/2024 11:59 PM EST Hospital Encounter [address] [phone] Brielle Walsh DO Esophageal cancer, stage IV (CMS/HCC) (Primary Dx) Discharge Disposition: Home or Self Care 06/10/2024 Lab Requisition [facility] - Main Lab [address] [facility] [place] [address] Any Peralta MD Elevated prostate specific antigen (PSA) 06/03/2024 11:26 AM EST - 06/03/2024 11:59 PM EST Hospital Encounter [facility] [address] [place] [phone] Esophageal cancer, stage IV (CMS/HCC) (Primary Dx) Discharge Disposition: Home or Self Care 06/01/2024 9:15 AM EST - 06/01/2024 11:59 PM EST Hospital Encounter [facility] [address] [place] [phone] Esophageal cancer, stage IV (CMS/HCC) (Primary Dx) Discharge Disposition: Home or Self Care 05/25/2024 11:00 AM EST Office Visit [facility] Hematology Oncology [address] [place] [address] Brielle Walsh DO Esophageal cancer, stage IV (CMS/HCC) (Primary Dx); Anemia due to antineoplastic chemotherapy; Urinary tract infection without hematuria, site unspecified 05/19/2024 8:44 AM EST - 05/19/2024 11:59 PM EST Hospital Encounter [facility] CT Scan [address] [place] [address] Esophageal cancer, stage IV (CMS/HCC) Discharge Disposition: Home or Self Care 05/14/2024 11:56 AM EST - 05/14/2024 11:59 PM EST Hospital Encounter [facility] [address] [place] [phone] Esophageal cancer, stage IV (CMS/HCC) (Primary Dx) Discharge Disposition: Home or Self Care 05/12/2024 9:00 AM EST - 05/12/2024 11:59 PM EST Hospital Encounter [facility] [address] [place] [phone] Esophageal cancer, stage IV (CMS/HCC) (Primary Dx); [...] your loved ones. For example, child welfare director or elderly care for an older [...] Appointment [facility] [address] [phone] 08/17/2024 9:30 AM EDT Appointment [facility] CT Scan [address] [place] [address] 08/18/2024 9:00 AM EDT Appointment [facility] [address] [phone] 08/25/2024 9:00 AM EDT Office Visit [facility] Hematology Oncology [address] [place] [address] Brielle Walsh DO [address] [place] [address] Health Maintenance Due Date Last Done Comments [...] 08/04/2024 9:58 AM [facility] RBC 3.20(L) 4.50 - [...] BLOOD ORDERABLES Final Result Performing Organization Address [facility]/ZIP Co de Phone Number [facility] [address] [place] [address], [place] [phone] * Magnesium (08/04/2024 9:27 AM EST) Only the most recent of7 resultswithin the time period is included. [facility] Magnesium 2.0 1.9 - 2.6 mg/dL LAB CHEMISTRY METHOD 08/04/2024 11:34 AM [facility] Blood Venous blood specimen / Unknown Venipuncture / Unknown 08/04/2024 9:27 AM EST 08/04/2024 9:44 AM EST Brielle Neva Walsh DO LAB BLOOD ORDERABLES Final Result Performing Organization Address [facility] de Phone Number [facility] [address] [place] [address], [place] [phone] * (ABNORMAL) Comprehensive metabolic panel (08/04/2024 9:27 AM EST) Only the most recent of7 resultswithin the time period is included. [facility] Sodium 141 133 - 145 mmol/L LAB [...] 73m2 LAB CHEMISTRY METHOD 08/04/2024 10:18 AM [facility] Comment:Calculation based [...] DO LAB BLOOD ORDERABLES Final Result [facility] [address] [place] [address], [place] [phone] * XR Knee 4+ Views bilat (07/28/2024 [...] Signed Date: 07/28/2024 09:46 ET Workstation ID: [id number] Transcribed By: Self Edit Transcribed Date: 07/28/2024 [...] Signed Date: 07/28/2024 09:46 ET Workstation ID: [id number] Transcribed By: Self Edit Transcribed Date: 07/28/2024 09:43 ET Farhad Benitez MD IMG XR PROCEDURES Final Result * Prostate specific antigen diagnostic (06/10/2024 11:10 AM EST) PSA 0.75 0.00 - 4.00 ng/mL LAB CHEMISTRY METHOD 06/10/2024 2:52 PM EST [facility] Blood Venous blood specimen / Unknown 06/10/2024 11:10 AM EST 06/10/2024 2:19 PM EST Narrative [facility] - 06/10/2024 2:52 PM EST The Siemens Advia Centaur Chemiluminescent Immunoassay is used. Results obtained with different assay methods or kits cannot be used interchangeably. Results cannot be interpreted as absolute evidence of the presence or absence of malignant disease. Any Peralta MD LAB BLOOD ORDERABLES Fin al Result [facility] [address] [place] [address], * CT Chest/Abdomen/Pelvis w Contrast (05/19/2024 8:55 [...] Signed Date: 05/19/2024 15:39 ET Workstation ID: [id number] Transcribed By: Self Edit Transcribed Date: 05/19/2024 [...] Signed Date: 05/19/2024 15:39 ET Workstation ID: [id number] Transcribed By: Self Edit Transcribed Date: 05/19/2024 15:21 ET Brielle aWlsh DO IMG CT PROCEDURES Fin al Result [...] Most Recently Relevant to Health Maintenance Insurance [facility] [facility] Advance Directives Documents on File Type Date Recorded Patient Soda Maker Expl anation Health Care Decision (hx) 08/09/2022 [...] (hx) 07/13/2022 AD QUINONEZ DIRECTIVE Care Teams Grizzly Worker Relationship Specialty Start Date End Date Leonor Kirk MD [address] [place] [address] PCP - General 10/01/1997
--- OUTSIDE RECORDS SUMMARY | 2024-08-10 13:34 | XMS_ITS ---
Author Organization [facility] Address [address] [place] [address] Phone Care Team Providers Care Extractive Metallurgist Name Role Phone Leonor Kirk MD Primary Care Provider [phone] Active Problems Problem Noted Date Diagnosed Date Hypomagnesemia 02/19/2023 Primary osteoarthritis of left hip 01/27/2023 Primary osteoarthritis of right hip 01/27/2023 Anemia 01/24/2023 Myelitis 01/24/2023 Lower extremity weakness 01/24/2023 A-fib 01/14/2023 Overview (02/20/2024): Last Assessment & Plan: The patient was noted to have atrial fibrillation RVR during a recent hospitalization in September 2022. He recently underwent a 30-day ambulatory monitor and storage bin tender in February 2023 which showed sinus rhythm [...] anticoagulation given these results. He has a [id number] score of 1 and continues on anticoagulation [...] Leucovorin - 39 CYCLES GIVEN EXTERNALLY IN [facility]* Plan Start Date:04/12/2024 Plan Provider:Brielle Walsh [...] treatments are documented for this patient in [facility]. Treatments may have been administered in another system.
== END 2024-08-10 12:14 | disposition home or self-care (01) ==
LOC: HO.PMCPRC 10:56
PROVIDERS: PCP Internal Medicine; Visit Provider Anesthesiology
DX: M54.16 Radiculopathy, lumbar region (principal)
CPT/HCPCS: 62323

== ENCOUNTER 2024-11-22 12:54 | Outpatient (AMB) | payer OTHER, SELFPAY ==
--- NOTE | 2024-11-22 12:56 | MHC.OFFVIS ---
Vital Signs 11/22/24 12:57 Height 5 ft 10 in BP 158/88 H Blood Pressure Location Rt brachial Position Sitting Intake Visit Reasons: 6 mo follow up Intake Note: Patient following up referred to pain management note 06/07. patient did not respond to weight management after 3 attempts Allergies No Known Allergies Allergy (Verified 11/22/24 12:58) HPI Comments Details: 64Y/O MALE with esophageal cancer stage 4 comes for follow up of immune mediated neuropathy, sleep apnea and migraines He is on CPAP and is doing well. He is sleeping better and his daytime sleepiness has improved Compliance data-100% Usage hrs 10 hrs AHI 0.8 Pressure 15 His leg weakness has improved and he is able to walk around the house. His MRI was c/w spinal stenosis . He had back surgery 2 mths ago - is on PT . His migraines resolved with topiramate . 1-2 migraines a month. EMG showed - 2. 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 3. Denervation seen on needle EMG of L5-S1 innervated muscles. Cannot rule out an L5-S1 radiculopathy. History from initial visit-He was diagnsoed with esophageal cancer ( invasive adenocarcinoma) in Jun 2022 when he presented with dysphagia. He was treated with RT in his shoulder and spine, chemo - FOLFOX and nivolumab on 08/01 . 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 Paraneoplastic syndrome was ruled out He was treated with IVIG and high dose steroids and he improved . His course was also complicated by PE treated with eliquis and hematoma. He is still on chemo q 2 weeks . Now he has persistent numbness in his cisco feet, toes, has pain and sensitivity to touch in his feet,L>R PFSH Medical History (Updated 11/22/24 @ 13:29 by Lauren Burton MD) Migraine Port-A-Cath in place Restless legs syndrome (RLS) Obesity Spinal stenosis of lumbar region Status post chemotherapy Back pain Radiculopathy Chronic migraine without aura Pulmonary embolism Esophageal carcinoma HTN (hypertension) Migraines, neuralgic Immune-mediated neuropathy Insomnia Snoring Surgical History History of back surgery H/O umbilical hernia repair Family History Father No problems noted. Mother HTN (hypertension) Social History Household Members: Spouse Caregiver staying overnight: Yes Housing: Apartment Alcohol intake: never Patient Tobacco Use Status: Never used Tobacco Physical Exam Vital Signs: Last Vital Signs BP 158/88 H 11/22/24 12:57 Const General: cooperative Nutritional Appearance: obese Orientation/consciousness: patient oriented x3 Neuro Other: Weakness of LE proximal 5-/5 distal 5/5 Decreased sensation, light touch and pin prick in distal toes and feet Gait- able to walk without cane , mild wide based , good. General: patient oriented x3, tone normal and moves all extremities Cranial nerves: Yes Facial sensation intact/muscles of mastication intact, Yes Bilaterally intact EOM present, Yes Nystagmus not present, Yes Normal facial strength present, Yes Midline tongue present and Yes Symmetric palate elevation present Cognition (Neuro): normal cognition Deep tendon reflexes (DTR's): Left ankle reflex intensity grade: 0 Coordination: [id number]-ar-volq test normal Assessment & Plan Assessment & Plan (1) Immune-mediated neuropathy: Comment: ? CIDP - significant improvement with course of IVIG Code(s): D89.89 - Other specified disorders involving the immune mechanism, not elsewhere classified; G63 - Polyneuropathy in diseases classified elsewhere Category: Medical (2) TANI (obstructive sleep apnea): Comment: Severe degree of sleep apnea. The AHI was 45/hr and oxygen zoya was 75% Code(s): G47.33 - Obstructive sleep apnea (adult) (pediatric) Category: Medical (3) Restless legs syndrome (RLS): Code(s): G25.81 - Restless legs syndrome Category: Medical (4) Spinal stenosis of lumbar region: Code(s): M48.061 - Spinal stenosis, lumbar region without neurogenic claudication Category: Medical (5) Migraine: Comment: 1/2 month Code(s): G43.909 - Migraine, unspecified, not intractable, without status migrainosus Category: Medical Qualifiers: Migraine type: migraine (< 15 days per month) without aura Status migrainosus presence: without status migrainosus Intractability: not intractable Qualified Code(s): G43.009 - Migraine without aura, not intractable, without status migrainosus Plan continue CPAP - 15 . compliance stressed Continue gabapentin 600mg tid for neuropathic pain and migraines topiramate 50mg bid for migraines prophylaxis Continue exercises . discuss with PCP about GLP-1 agonists for weight loss. Coding Level of Care Code Est Pt Level 4 (02874) Complex EM visit Add On G2211 Diagnoses Immune-mediated neuropathy D89.89; G63 TANI (obstructive sleep apnea) G47.33 Restless legs syndrome (RLS) G25.81 Spinal stenosis of lumbar region M48.061 Migraine without aura and without status migrainosus, not intractable G43.009 Migraine type: migraine (< 15 days per month) without aura Status migrainosus presence: without status migrainosus Intractability: not intractable
[2024-11-22 12:57] VITALS: BP 158/88
--- OUTSIDE RECORDS SUMMARY | 2024-11-22 14:16 | XMS_ITS | Encounter Summary ---
Author Organization [employer] [place] [address] Care Team Providers Care Store Stock Associate Name Role Phone Leonor Kirk MD Primary Care Provider [phone] Encounter Details Date Type Department Care Team (Late st Contact Info) Description 06/10/2024 Lab Requisition [facility] - Main Lab [address] [facility] [place] [address] Any Peralta MD [address] [facility] [address] [place], [place] [id number] Elevated prostate specific antigen (PSA) Social History [...] your loved ones. For example, child care attendant or elderly care for an older adult? [...] Care Team (Late st Contact Info) Description 11/23/2024 11:30 AM EDT Treatment [address] [phone] Mau Hendricks, RAW STOCK MACHINE LOADER 11/24/2024 9:00 AM EDT Appointment [facility] [address] [phone] 11/29/2024 11:30 AM EDT Treatment [address] [phone] Omar Marks, RAW STOCK MACHINE LOADER 11/30/2024 11:30 AM EDT Treatment [address] [phone] Nancy Zamora, PT 12/02/2024 1:00 PM EDT Appointment [facility] CT Scan [address] [place] [address] 12/07/2024 1:30 PM EDT Treatment [address] [phone] Mau Hendricks, RAW STOCK MACHINE LOADER 12/08/2024 10:15 AM EDT Office Visit [facility] Hematology Oncology [address] [place] [address] Brielle Walsh, DO [address] [place] [address] 12/13/2024 1:30 PM EDT Treatment [address] [phone] Omar Marks, RAW STOCK MACHINE LOADER 12/15/2024 1:30 PM EDT Treatment [address] [phone] lAok Fisher, RAW STOCK MACHINE LOADER 12/21/2024 1:30 PM EDT Treatment [address] [phone] Nik Islas, RAW STOCK MACHINE LOADER 12/28/2024 1:30 PM EDT Treatment [address] [phone] Nik Islas, RAW STOCK MACHINE LOADER 12/30/2024 1:30 PM EDT Treatment [facility] [address] [phone] PhillipAlok, RAW STOCK MACHINE LOADER 01/03/2025 3:30 PM EDT Office Visit [facility] [address] [place], [place] [phone] Elijah Pemberton NP [address] [place], [place] 01/04/2025 1:30 PM EDT Treatment [address] [phone] Nancy Zamora, PT 02/18/2025 8:30 AM EDT Office Visit [address] [phone] Jocelyne Chinchilla MD [address] [address] documented as of this encounter Procedures Procedure Name Priority Date/Time Associated Diagnosis Comments PROSTATE SPECIFIC ANTIGEN DIAGNOSTIC Routine 06/10/2024 11:10 AM EST Elevated prostate specific antigen (PSA) documented in this encounter Results * Prostate specific antigen diagnostic (06/10/2024 11:10 AM EST) PSA 0.75 0.00 - 4.00 ng/mL LAB CHEMISTRY METHOD 06/10/2024 2:52 PM EST [facility] Blood Venous blood specimen / Unknown 06/10/2024 11:10 AM EST 06/10/2024 2:19 PM EST [facility] - 06/10/2024 2:52 PM EST The Siemens Advia Centaur Chemiluminescent Immunoassay is used. Results obtained with different assay methods or kits cannot be used interchangeably. Results cannot be interpreted as absolute evidence of the presence or absence of malignant disease. us Any Peralta MD LAB BLOOD ORDERABLES Fin al Result [facility] ([facility]) [facility] [address] [place] [address], documented in this encounter Visit Diagnoses Diagnosis Elevated prostate specific antigen (PSA) documented in this encounter Additional Health Concerns Infection Onset Date Last Indicated Resolved Time Respiratory Rule-Out 09/28/2024 09/28/2024 025 11:38 PM EDT COVID-19 Rule-Out 09/28/2024 09/28/2024 09/28/2024 11:38 PM EDT Assessment Noted Time PHQ-9 Depression Total Score: 0 04/23/20 24 5:25 PM EST documented as of this encounter Care Teams Store Stock Associate Relationship Specialty Start Date End Date Leonor Kirk MD [address] [place] [address] PCP - General 10/01/1997 documented as of this encounter
== END 2024-11-22 13:34 | disposition home or self-care (01) ==
LOC: HO.HSMS 12:54
PROVIDERS: PCP Internal Medicine; Visit Provider Psychiatry & Neurology Neurology
DX: D89.89 Other specified disorders involving the immune mechanism, not elsewhere classified (principal); G63 Polyneuropathy in diseases classified elsewhere; G47.33 Obstructive sleep apnea (adult) (pediatric); G25.81 Restless legs syndrome; M48.061 Spinal stenosis, lumbar region without neurogenic claudication; G43.009 Migraine without aura, not intractable, without status migrainosus
CPT/HCPCS: 99214; G2211

== ENCOUNTER → 2024-11-22 12:54 | Outpatient (BNVA) | payer OTHER, SELFPAY | PROVIDERS: PCP Internal Medicine; Visit Provider Psychiatry & Neurology Neurology | DX: G47.33 Obstructive sleep apnea (adult) (pediatric) (principal); G63 Polyneuropathy in diseases classified elsewhere; D89.89 Other specified disorders involving the immune mechanism, not elsewhere classified; G25.81 Restless legs syndrome; M48.061 Spinal stenosis, lumbar region without neurogenic claudication; G43.009 Migraine without aura, not intractable, without status migrainosus | CPT/HCPCS: 99212 ==

== ENCOUNTER 2025-01-06 13:55 | Outpatient (AMB) | payer OTHER, SELFPAY ==
[2025-01-06 13:58] VITALS: BP 110/64; PULSE 70; O2SAT 98
--- NOTE | 2025-01-06 13:58 | A.OFFVIS_ITS ---
Vital Signs 01/06/25 13:58 Height 5 ft 10 in BP 110/64 Blood Pressure Location Rt brachial Position Sitting Pulse 70 Pulse Source Pulse Oximeter Pulse Oximetry (%) 98 Oxygen Delivery Method Room Air Intake Visit Reasons: F/u Cpap supply order due to ins Demonstrator Sewing Techniques Required: No Accompanied by: Spouse Allergies No Known Allergies Allergy (Verified 01/06/25 13:59) HPI Comments Details: 64Y/O MALE with esophageal cancer stage 4 comes for follow up of immune mediated neuropathy, sleep apnea and migraines He is on CPAP and is doing well. He is sleeping better and his daytime sleepiness has improved. He needs new supplies for his CPAP Compliance data-100% Usage hrs 10 hrs AHI 0.8 Pressure 15 His leg weakness has improved and he is able to walk around the house. His MRI was c/w spinal stenosis . He had back surgery 2 mths ago - is on PT . His migraines resolved with topiramate . 1-2 migraines a month. EMG showed - 2. 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 3. Denervation seen on needle EMG of L5-S1 innervated muscles. Cannot rule out an L5-S1 radiculopathy. History from initial visit-He was diagnsoed with esophageal cancer ( invasive adenocarcinoma) in Jun 2022 when he presented with dysphagia. He was treated with RT in his shoulder and spine, chemo - FOLFOX and nivolumab on 08/01 . 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 Paraneoplastic syndrome was ruled out He was treated with IVIG and high dose steroids and he improved . His course was also complicated by PE treated with eliquis and hematoma. He is still on chemo q 2 weeks . Now he has persistent numbness in his cisco feet, toes, has pain and sensitivity to touch in his feet,L>R PFSH Medical History Migraine Port-A-Cath in place Restless legs syndrome (RLS) Obesity Spinal stenosis of lumbar region Status post chemotherapy Back pain Radiculopathy Chronic migraine without aura Pulmonary embolism Esophageal carcinoma HTN (hypertension) Migraines, neuralgic Immune-mediated neuropathy Insomnia Snoring Surgical History History of back surgery H/O umbilical hernia repair Family History Father No problems noted. Mother HTN (hypertension) Social History Household Members: Spouse Caregiver staying overnight: Yes Housing: Apartment Alcohol intake: never Patient Tobacco Use Status: Never used Tobacco Physical Exam Vital Signs: Last Vital Signs Pulse 70 01/06/25 13:58 BP 110/64 01/06/25 13:58 Pulse Ox 98 01/06/25 13:58 Oxygen Delivery Method Room Air 01/06/25 13:58 Const General: cooperative Nutritional Appearance: obese Orientation/consciousness: patient oriented x3 Neuro Other: Weakness of LE proximal 5-/5 distal 5/5 Decreased sensation, light touch and pin prick in distal toes and feet Gait- able to walk without cane , mild wide based , good. General: patient oriented x3, tone normal and moves all extremities Cranial nerves: Yes Facial sensation intact/muscles of mastication intact, Yes Bilaterally intact EOM present, Yes Nystagmus not present, Yes Normal facial strength present, Yes Midline tongue present and Yes Symmetric palate elevation present Cognition (Neuro): normal cognition Deep tendon reflexes (DTR's): Left ankle reflex intensity grade: 0 Coordination: [id number] test normal Assessment & Plan Assessment & Plan (1) Immune-mediated neuropathy: Comment: ? CIDP - significant improvement with course of IVIG Code(s): D89.89 - Other specified disorders involving the immune mechanism, not elsewhere classified; G63 - Polyneuropathy in diseases classified elsewhere Category: Medical (2) TANI (obstructive sleep apnea): Comment: Severe degree of sleep apnea. The AHI was 45/hr and oxygen zoya was 75% Code(s): G47.33 - Obstructive sleep apnea (adult) (pediatric) Category: Medical (3) Restless legs syndrome (RLS): Code(s): G25.81 - Restless legs syndrome Category: Medical (4) Spinal stenosis of lumbar region: Code(s): M48.061 - Spinal stenosis, lumbar region without neurogenic claudication Category: Medical Qualifiers: Neurogenic claudication status: unspecified Qualified Code(s): M48.061 - Spinal stenosis, lumbar region without neurogenic claudication (5) Migraine: Comment: 1/2 month Code(s): G43.909 - Migraine, unspecified, not intractable, without status migrainosus Category: Medical Qualifiers: Migraine type: migraine (< 15 days per month) without aura Status migrainosus presence: without status migrainosus Intractability: not intractable Qualified Code(s): G43.009 - Migraine without aura, not intractable, without status migrainosus Plan continue CPAP - 15 . compliance stressed Patient has severe sleep apnea an dhas been doing well since he started CPAP. The cpap use has increased his nighttime sleep and also decreased his day time fatigue. Continue gabapentin 600mg tid for neuropathic pain and migraines topiramate 50mg bid for migraines prophylaxis Continue exercises . discuss with PCP about GLP-1 agonists for weight loss. Coding Level of Care Code Est Pt Level 4 (07663) Complex EM visit Add On G2211 Diagnoses Immune-mediated neuropathy D89.89; G63 TANI (obstructive sleep apnea) G47.33 Restless legs syndrome (RLS) G25.81 Spinal stenosis of lumbar region, unspecified whether neurogenic claudication present M48.061 Neurogenic claudication status: unspecified Migraine without aura and without status migrainosus, not intractable G43.009 Migraine type: migraine (< 15 days per month) without aura Status migrainosus presence: without status migrainosus Intractability: not intractable
--- OUTSIDE RECORDS SUMMARY | 2025-01-06 14:07 | XMS_ITS | Clinical Summary ---
Author Organization [facility] Address [address] [facility] [address] [place] [address] Phone Care Team Providers Care Travelift Operator Name Role Phone Leonor Kirk MD Primary Care Provider [phone] Brielle Walsh DO Unavailable Gin Tirado MD Unavailable [phone] Allergies No known active allergies Medications magnesium oxide 400 mg magnesium Tab Take 400 mg by mouth. 11/07/2022 Active acetaminophen (TYLENOL) 650 MG CR tablet Take 1 tablet by mouth every 8 (eight) hours as needed. Active apixaban (ELIQUIS) 5 mg tablet Take 1 tablet by mouth 2 (two) times a day. 11/07/2022 Active atorvastatin (LIPITOR) 40 MG tablet Take 1 tablet by mouth daily. 08/02/2022 Active cholecalciferol (VITAMIN D3) 25 MCG (1,000 unit) tablet Take 1 tablet by mouth 2 (two) times a day. 10/15/2022 Active CADENCE-GEST ANTACID 200 mg calcium (500 mg) chewable tablet Take 2 tablets by mouth every morning. 10/15/2022 Active docusate sodium (COLACE) 100 MG capsule Take 1 capsule by mouth 2 (two) times a day. 10/15/2022 Active ferrous sulfate 325 mg (65 mg [place]maha iron) tablet Take 1 tablet by mouth 2 (two) times a day. 10/15/2022 Active gabapentin (NEURONTIN) 300 MG capsule Take 1 capsule by mouth 3 (three) times a day. 10/15/2022 Active HYDROmorphone (DILAUDID) 2 MG tablet TAKE 1/2 TABLET (1 MG) BY MOUTH TWICE A DAY NEEDED FOR SEVERE PAIN 10/15/2022 Active lidocaine-prilo amy (EMLA) cream Apply topically. 07/22/2022 Active LORazepam (ATIVAN) 0.5 MG tablet 07/25/2022 Active metoprolol tartrate (LOPRESSOR) 50 MG tablet Take 50 mg by mouth every 12 (twelve) hours. 08/02/2022 Active mirtazapine (REMERON) 15 MG tablet Take 1 tablet by mouth nightly at bedtime. 09/02/2022 Active ondansetron (ZOFRAN) 4 MG tablet Take 1 tablet by mouth every 8 (eight) hours as needed. 07/17/2022 Active oxyCODONE 5 MG immediate release tablet Take 5 mg by mouth every 4 (four) hours as needed. 08/01/2022 Active polyethylene glycol (MIRALAX) 17 gram/dose powder Take 1 packet by mouth daily. 07/22/2022 Active prochlorperazin e (COMPAZINE) 10 MG tablet Take 10 mg by mouth every 6 (six) hours as needed. 07/22/2022 Active SENNA 8.6 mg tablet Take 2 tablets by mouth daily as needed. 11/07/2022 Active traZODone (DESYREL) 50 MG tablet Take 1 tablet by mouth nightly at bedtime. 10/15/2022 Active vitamin K2 100 mcg capsule 11/12/2022 Active Active Problems No known active problems Family History Medical History Relation Comments Multiple sclerosis Father Cancer Maternal Cousin Hypertension Mother Throat cancer Paternal Uncle smoker Relation Status Comments Father Maternal Cousin Alive Mother Paternal Uncle Alive Social History Tobacco Use Types Packs/Day Years Used Date Smoking Tobacco: Never Assessed Child or Family Care Answer Date Record ed Do you have problems with on e of the following making it difficult for you to work, study, or receive health care? No 11/12/2022 Education Answer Date Recorded Are you interested in more education? Not on danni e 11/14/2024 Are you concerned about learning? Not on file 11/14/2024 No 11/14/2024 No 11/14/2024 Food Answer Date Recorded Within the past 6 months we worried whether our food would run out before we got money to buy more. Sometimes True 023 Within the past 6 months the food we bought just didn't last and we didn't have enough money to get more. Never True 11/2022 Residential Stability Answer Date Recor ded What is your housing situation today? I have a place to live today, but I am worried about losing it in the next 3 months 11/12/2022 How many times have you move d in the past 12 months? Zero (I did not move) 11/12/2022 Paying for Meds Answer Date Recorded Do you have trouble paying for medicines? No 11/12/2022 Paying Utility Bills Answer Date Record ed Do you have trouble paying your heating or elect ricity bill? No 11/12/2022 Transportation Answer Date Recorded Has the lack of transportati on kept you from medical appointments or from getting medications? No 11/12/2022 Digital Access Answer Date Recorded No 10/30/2022 No 10/30/2022 Reliable internet access at home? Not on file 10/30/2022 Device with a working camera? Not on file Sex and Gender Information Value Date Recorded Sex Assigned at Male 11/12/2022 7:19 AM EDT Legal Sex Male 5:57 PM EST Gender Identity Male 11/12/2022 7:19 AM EDT Sexual Orientation Straight 11/12/2022 7: 19 AM EDT Last Filed Vital Signs Vital Sign Reading Time Taken Comments Blood Pressure 108/72 11/18/2022 8:46 AM EDT Pulse 90 11/18/2022 8:46 AM EDT Temperature 35.7 C (96.2 F) 11/18/2022 8:46 AM EDT Respiratory Rate 16 11/18/2022 8:46 AM EDT Oxygen Saturation 97% 11/18/2022 8:46 AM EDT Inhaled Oxygen Concentration - - Weight - - Height - - Body Mass Index - - Plan of Treatment Health Maintenance Due Date Last Done Comments CREATININE LEVEL 1961 LIPID PANEL 1961 DEPRESSION SCREENING 1973 SMOKING Hx and SMOKELESS TOBACCO SCREENING 1974 HEPATITIS C SCREENING 1979 HIV ONE-TIME SCREENING (18-6 5 YEARS) 1979 COLOGUARD 2006 COLONOSCOPY 2006 COLORECTAL CANCER SCREENING 2006 FIT TEST 2006 FOBT 2006 SIGMOIDOSCOPY 2006 VIRTUAL COLONOSCOPY 2006 PNEUMOCOCCAL VACCINES (50+ years) (1 of 1 - PCV) 2011 ZOSTER VACCINES (1 of 2) 2011 RSV VACCINE (1 - Risk 60-74 years 1-dose series) 2021 COVID-19 VACCINE (4 - 2023-2 5 season) 2024 07/02/2021, 11/23/2020, 10/22/2020 Adult Td,Tdap Booster 04/10/2032 04/10/2022 , 09/20/2011 HEPATITIS A VACCINES Aged Out No long er eligible based on patient's age to complete this topic HIB VACCINES Aged Out No longer eligi ble based on patient's age to complete this topic MENINGOCOCCAL VACCINES (ACWY) Aged Out No longer eligible based on patient's age to complete this topic MENINGOCOCCAL VACCINES (B) Aged Out N o longer eligible based on patient's age to complete this topic Medical Devices Not on file Insurance [facility] [place] [facility] [place] [facility] Care Teams Travelift Operator Relationship Specialty Start Date End Date Leonor Kirk MD [address] [place] [id number] PCP - General Internal Medicine 10/25/22 Brielle Walsh DO [address] [place] [id number] Internal Medicine 10/25/22 Gin Tirado MD [address] [phone] [email or web address] Primary Oncologist Medical Oncology 10/30/22 Additional Source Comments The information contained in this document represents components of the legal health record. It is not the complete legal health record.[facility]
--- OUTSIDE RECORDS SUMMARY | 2025-01-06 14:07 | XMS_ITS | Encounter Summary ---
Author Organization [employer] [place] [address] Care Team Providers Care Pump House Technician Name Role Phone Leonor Kirk MD Primary Care Provider [phone] Encounter Details Date Type Department Care Team (Late st Contact Info) Description 06/10/2024 Lab Requisition [facility] - Main Lab [address] [facility] [address] Any Peralta MD [address] [facility] [address] [place], [place] [phone] Elevated prostate specific antigen (PSA) Social History [...] care for your loved ones. For example, childbirth and infant care teacher or elderly care for an [...] Care Team (Late st Contact Info) Description 01/07/2025 10:[address] [facility] [address] [place] [address] 2nd [place] [phone] 01/19/2025 9:[address] [facility] [address] [facility] 2nd [place] [phone] 02/02/2025 10:30 AM EDT Office Visit [facility] Hematology Oncology [address] [place] [phone] Brielle Walsh, DO [address] [place] [address] 02/18/2025 8:30 AM EDT Office Visit Pulmonolgy - [place] [address] [facility] [address] [place] [phone] Jocelyne Chinchilla MD [address] [address] 03/02/2025 9:45 AM EDT Office Visit [facility] Hematology Oncology [address] [place] [phone] Brielle Walsh, DO [address] [place] [address] 07/11/2025 3:30 PM EST Office Visit [facility] [address] [place] [phone] Leonor Kirk MD [address] [place] [address] documented as of this encounter Procedures Procedure Name Priority Date/Time Associated Diagnosis Comments PROSTATE SPECIFIC ANTIGEN DIAGNOSTIC Routine 06/10/2024 11:10 AM EST Elevated prostate specific antigen (PSA) documented in this encounter Results * Prostate specific antigen diagnostic (06/10/2024 11:10 AM EST) PSA 0.75 0.00 - 4.00 ng/mL LAB CHEMISTRY METHOD 06/10/2024 2:52 PM EST [facility] Blood Venous blood specimen / Unknown 06/10/2024 11:10 AM EST 06/10/2024 2:19 PM EST Narrative [facility] - 06/10/2024 2:52 PM EST The Siemens Advia Centaur Chemiluminescent Immunoassay is used. Results obtained with different assay methods or kits cannot be used interchangeably. Results cannot be interpreted as absolute evidence of the presence or absence of malignant disease. us Any Peralta MD LAB BLOOD ORDERABLES Fin al Result [facility] [address] [place] [address], documented in this encounter Visit Diagnoses Diagnosis Elevated prostate specific antigen (PSA) documented in this encounter Additional Health Concerns Infection Onset Date Last Indicated Resolved Time Respiratory Rule-Out 09/28/2024 09/28/2024 025 11:38 PM EDT COVID-19 Rule-Out 09/28/2024 09/28/2024 09/28/2024 11:38 PM EDT Assessment Noted Time PHQ-9 Depression Total Score: 0 04/23/20 24 5:25 PM EST documented as of this encounter Care Teams Pump House Technician Relationship Specialty Start Date End Date Leonor Kirk MD [address] [place] [address] PCP - General 10/01/1997 documented as of this encounter
--- OUTSIDE RECORDS SUMMARY | 2025-01-06 14:07 | XMS_ITS | Clinical Summary ---
Author Organization [facility] Facility Address [address] [place] [address] Care Team Providers Care Four Horse Hitch Driver Name Role Phone Leonor Kirk MD Primary Care Provider [phone] Social History Tobacco Use Types Packs/Day Years Used Date Smoking Tobacco: Never Assessed Sex and Gender Information Value Date Recorded Sex Assigned at Not on file Legal Sex Male 9:06 AM EDT Gender Identity Not on file Sexual Orientation Not on file Plan of Treatment Health Maintenance Due Date Last Done Comments Pneumococcal Vaccine: 50+ Years (1 of 2 - PCV) 1980 Colorectal Cancer Screening: Annual FOBT 2010 Colorectal Cancer Screening: Colonoscopy 2010 Colorectal Cancer Screening: Sigmoidoscopy 2010 Influenza Vaccine (#1) 2025 3, 06/14/2022, 03/10/2017 Hepatitis B Vaccine Aged Out No longe r eligible based on patient's age to complete this [place] [address] [facility] Care Teams Four Horse Hitch Driver Relationship Specialty Start Date End Date Leonor Kirk MD PCP - General Internal Medicine 08/28/22
--- OUTSIDE RECORDS SUMMARY | 2025-01-06 14:07 | XMS_ITS | Clinical Summary ---
Author Organization [facility] Address [address] [place] [address] Care Team Providers Care Cdl Driver Name Role Phone Leonor Kirk MD Primary Care Provider [phone] Allergies No known active allergies Medications Medication [...] tablet 0 01/17/2023 Active Benadryl soln 12.5mg/5 [id number] susp mouth wash 1:1:1 Swish and spit [...] 77 03/31/2024 12:35 PM EDT Temperature 36.7 C (98.1 F) 03/31/2024 12:35 PM EDT Respiratory Rate 20 03/18/2024 10:00 AM EDT [...] - Risk 60-74 years 1-dose series) 2021 Shingrix-Zoster Vaccine (2 o f 2) 04/24/2024 02/28/2024 Influenza Vaccine (#1) 2025 3, 03/10/2017, 02/12/2012 DTap / Tdap / Td (3 - Td or Tdap) 04/10/2032 04/10/2022, 09/20/2011 Hepatitis B Vaccines Aged Out No long er eligible based on patient's age to complete this topic RSV Ped < 20 months Aged Out No longe r eligible based on patient's age to complete this topic Care Teams Cdl Driver Relationship Specialty Start Date End Date Leonor Kirk MD PCP - General Internal Medicine 07/22/22 Lupe Llamas Air Brake Worker Registered Nurse 07/22/22 Gin Tirado MD [facility] [place], Floor 4 Consulting Physician Medical Oncology 09/11/22
== END 2025-01-06 14:31 | disposition home or self-care (01) ==
LOC: HO.HSMS 13:56
PROVIDERS: PCP Internal Medicine; Visit Provider Psychiatry & Neurology Neurology
DX: D89.89 Other specified disorders involving the immune mechanism, not elsewhere classified (principal); G63 Polyneuropathy in diseases classified elsewhere; G47.33 Obstructive sleep apnea (adult) (pediatric); G25.81 Restless legs syndrome; M48.061 Spinal stenosis, lumbar region without neurogenic claudication; G43.009 Migraine without aura, not intractable, without status migrainosus
CPT/HCPCS: 99214

== ENCOUNTER → 2025-01-06 13:55 | Outpatient (BNVA) | payer MEDICARE, MEDICAID, SELFPAY | PROVIDERS: PCP Internal Medicine; Visit Provider Psychiatry & Neurology Neurology | DX: D89.89 Other specified disorders involving the immune mechanism, not elsewhere classified (principal); G63 Polyneuropathy in diseases classified elsewhere; G47.33 Obstructive sleep apnea (adult) (pediatric); G25.81 Restless legs syndrome; G43.009 Migraine without aura, not intractable, without status migrainosus; M48.061 Spinal stenosis, lumbar region without neurogenic claudication | CPT/HCPCS: 99212 ==